=== PATIENT | female | born 1975 | race African-American/Black ===

== ENCOUNTER 2016-04-20 07:13 | Emergency (ER) | payer SELFPAY ==
[~2016-04-20 07:13] MED LIST: AMLO10TA2 PO; LISI20TA PO
[2016-04-20 07:15] VITALS: BP 202/115; PULSE 69; RESP 15; TEMP 98; O2SAT 100
[2016-04-20 07:24] VITALS: BP 156/98; PULSE 56; RESP 16; O2SAT 96
[2016-04-20 07:28] VITALS: RESP 16; O2SAT 98
[2016-04-20] MEDS ORDERED: SODIUM CHLORIDE 0.9% FLUSH 5 ML FLUSH IVF PRN (07:30)
[2016-04-20] MEDS ORDERED: KETOROLAC TROMETHAMINE 30 MG/ML (IVP) VIAL IV PUSH ONE (07:30)
[2016-04-20] MEDS ORDERED: ONDANSETRON HCL 4 MG/2 ML VIAL IVP ONE (07:30)
--- NOTE | 2016-04-20 07:30 | PD ---
HPI Chief Complaint: GI Complaint Time Seen by Provider: 07:22 Travel History International Travel<30 days: No Contact w/Intl Traveler<30days: No Traveled to known affect area: No History of Present Illness HPI 41-year-old female here with complaint of abdominal pain. For the last 3 days she has had diffuse crampy abdominal discomfort with occasional sharp twinges in the right side of the abdomen. Associated nausea, vomiting. Bowel movements have been regular. She notes urinary frequency, small volume but no dysuria or hematuria. Patient has had previous hysterectomy as well as colon resection, ileostomy and ileostomy takedown, right oophorectomy all related to history of endometriosis. She denies any history of bowel obstructions. No recent travel, sick contacts, fevers or chills. PFSH Past Medical History Heart Rhythm Problems: No Cardiac Catheterization: No Cardiovascular Problems: Yes (HTN) High Cholesterol: No Congestive Heart Failure: No Diabetes: No Diminished Hearing: No Genitourinary: Yes (ENDOMETRIOSIS) Hypertension: Yes Tetanus Vaccination: Unknown Influenza Vaccination: No ?: Not Past Surgical History Abdominal Surgery: Yes (colon resection 2011) Coronary Artery Bypass Graft: No Hysterectomy: Yes Other Surgery: Yes Social History Alcohol Use: Yes (OCC) Tobacco Use: Yes (OCC) Substance Use: No Allergies-Medications (Allergen,Severity, Reaction): Coded Allergies: Codeine (Verified Allergy, Unknown, 04/20/16) Reported Meds & Prescriptions Reported Meds & Active Scripts Active Lisinopril-Hctz 20-12.5 Mg Tab 1 Tab PO DAILY Amlodipine (Amlodipine Besylate) 10 Mg Tab 10 Mg PO DAILY Review of Systems Except as stated in HPI: all other systems reviewed are Neg Physical Exam Narrative GENERAL: Well-appearing female in no acute distress SKIN: Warm and dry. HEAD: Normocephalic. EYES: No scleral icterus. No injection or drainage. ENT: Mucous membranes pink and moist. NECK: Supple CARDIOVASCULAR: Regular rate and rhythm. No murmur appreciated. RESPIRATORY: No accessory muscle use. Clear to auscultation. Breath sounds equal bilaterally. GASTROINTESTINAL: Abdomen soft, minimal right sided abdominal tenderness to palpation without rebound or guarding greatest in the right lower quadrant, nondistended. Multiple old surgical scars well-healed. MUSCULOSKELETAL: Normal gait NEUROLOGICAL: Awake and alert. Normal speech. PSYCHIATRIC: Appropriate mood and affect; insight and judgment normal. Data Data Last Documented VS Vital Signs Date Time Temp Pulse Resp B/P Pulse Ox O2 Delivery O2 Flow Rate FiO2 04/20/16 07:28 16 98 Room Air 04/20/16 07:15 98.0 69 202/115 Orders Complete Blood Count With Diff (04/20/16 07:27) Comprehensive Metabolic Panel (04/20/16 07:27) Lipase (04/20/16 07:27) Urinalysis - C+S If Indicated (04/20/16 07:27) Ct Abd/Pel W/O Iv Contrast (04/20/16 07:27) Iv Access Insert/Monitor (04/20/16 07:27) Ecg Monitoring (04/20/16 07:27) Oximetry (04/20/16 07:27) Ondansetron Inj (Zofran Inj) (04/20/16 07:30) Sodium Chloride 0.9% Flush (Ns Flush) (04/20/16 07:30) Fentanyl Inj (Fentanyl Inj) (04/20/16 07:30) Ketorolac Inj (Toradol Inj) (04/20/16 07:30) Labs Laboratory Tests Test 04/20/16 07:45 White Blood Count 4.4 TH/MM3 Red Blood Count 4.22 MIL/MM3 Hemoglobin 13.2 GM/DL Hematocrit 38.5 % Mean Corpuscular Volume 91.3 FL Mean Corpuscular Hemoglobin 31.2 PG Mean Corpuscular Hemoglobin 34.2 % Concent Red Cell Distribution Width 14.1 % Platelet Count 194 TH/MM3 Mean Platelet Volume 10.5 FL Neutrophils (%) (Auto) 34.5 % Lymphocytes (%) (Auto) 54.2 % Monocytes (%) (Auto) 6.0 % Eosinophils (%) (Auto) 4.5 % Basophils (%) (Auto) 0.8 % Neutrophils # (Auto) 1.5 TH/MM3 Lymphocytes # (Auto) 2.4 TH/MM3 Monocytes # (Auto) 0.3 TH/MM3 Eosinophils # (Auto) 0.2 TH/MM3 Basophils # (Auto) 0.0 TH/MM3 CBC Comment DIFF FINAL Differential Comment Urine Color YELLOW Urine Turbidity CLEAR Urine pH 6.0 Urine Specific [place] 1.020 Urine Protein NEG mg/dL Urine Glucose (UA) NEG mg/dL Urine Ketones NEG mg/dL Urine Occult Blood NEG Urine Nitrite NEG Urine Bilirubin NEG Urine Urobilinogen LESS THAN 2.0 MG/DL Urine Leukocyte Esterase SMALL Urine RBC 2 /hpf Urine WBC 2 /hpf Urine Squamous Epithelial 7 /hpf Cells Urine Transitional Epithelial <1 /hpf Cells Urine Bacteria FEW /hpf Urine Hyaline Casts 1 /lpf Urine Mucus FEW /lpf Microscopic Urinalysis Comment CULT NOT INDICATED Sodium Level 139 MEQ/L Potassium Level 3.9 MEQ/L Chloride Level 105 MEQ/L Carbon Dioxide Level 27.8 MEQ/L Anion Gap 6 MEQ/L Blood Urea Nitrogen 16 MG/DL Creatinine 1.07 MG/DL Estimat Glomerular Filtration 69 ML/MIN Rate Random Glucose 98 MG/DL Calcium Level 9.2 MG/DL Total Bilirubin 0.7 MG/DL Aspartate Amino Transf 18 U/L (AST/SGOT) Alanine Aminotransferase 50 U/L (ALT/SGPT) Alkaline Phosphatase 84 U/L Total Protein 7.8 GM/DL Albumin 4.0 GM/DL Lipase 96 U/L MDM Medical Decision Making Medical Screen Exam Complete: Yes Emergency Medical Condition: Yes Medical Record Reviewed: Yes Differential Diagnosis 41-year-old female with multiple previous abdominal surgeries here with complaint of 3 days of abdominal pain, greatest right sided, nausea vomiting and urinary frequency. Differential includes UTI, cystitis versus pyelonephritis, ureterolithiasis, appendicitis, hepatobiliary pathology, bowel obstruction, gastritis, GERD, pancreatitis. Narrative Course Patient placed on monitor, IV established and blood obtained. Given 4 mg Zofran , 100 g fentanyl, 30 mg Toradol. CBC, CMP, lipase, urinalysis obtained and unremarkable. CT abdomen and pelvis showed no acute abnormalities. Postsurgical changes. Stable pleural nodular thickening from January [address] thorax in one year. Diagnosis Primary Impression: Abdominal pain Qualified Code: R10.84 - Generalized abdominal pain Additional Impression: Nausea & vomiting Qualified Code: R11.2 - Non-intractable vomiting with nausea, unspecified vomiting type Referrals: Primary Care Physician as needed Additional Instructions: Nausea medications as needed. Follow-up with primary care provider as needed. Lab work and CT of the abdomen and pelvis today was negative. You do have stable thickening of the pleura, or lining of the lungs on the right. This has not changed since January 2016 when you have previous CT scan. Follow-up with primary care provider in one year to repeat CT of the chest to evaluate for stability. Med/Other Pt SpecificInfo: Prescription(s) given Scripts Promethazine (Phenergan)25 Mg Tab25 Mg PO Q6H PRN (Nausea/Vomiting) #10 TAB Ref 0 Prov:Jyotsna Sage MD 04/20/16 Disposition: 01 DISCHARGE HOME Condition: Stable Jyotsna Sage MD Apr 20, 2016 07:30
[2016-04-20 07:59] LABS: AUTOMATED NEUTROPHIL # 1.5 TH/MM3 (1.8-7.7); BASOPHIL % 0.8 % (0.0-2.0); EOSINOPHIL # 0.2 TH/MM3 (0-0.4); EOSINOPHIL % 4.5 % (0.0-4.0); HEMATOCRIT 38.5 % (35.0-46.0); HEMO FLAGS DIFF FINAL; LYMPH % 54.2 % (9.0-44.0); LYMPHOCYTE # 2.4 TH/MM3 (1.0-4.8); MEAN CELL VOLUME 91.3 FL (80.0-100.0); MEAN CORPUSCULAR HEMOGLOBIN 31.2 PG (27.0-34.0); MEAN CORPUSCULAR HGB CONC 34.2 % (32.0-36.0); NEUT % 34.5 % (16.0-70.0); PLATELET COUNT 194 TH/MM3 (150-450); RED BLOOD COUNT 4.22 MIL/MM3 (4.00-5.30); RED CELL DISTRIBUTION WIDTH 14.1 % (11.6-17.2); WHITE BLOOD COUNT 4.4 TH/MM3 (4.0-11.0)
[2016-04-20 08:01] LABS: BACTERIA, URINE FEW /hpf; BLOOD, URINE NEG (NEG); COMMENT (UR) CULT NOT INDICATED; CULTURE IF INDICATED CULT NOT INDICATED; GLUCOSE,URINE NEG (NEG); HYALINE CAST, URINE 1 /lpf (RARE); KETONE, URINE NEG (NEG); MUCUS URINE FEW /lpf (OCC); NITRITE,URINE NEG (NEG); SQUAMOUS EPITHELIAL CELL URINE 7 /hpf (0-5); TRANSITIONAL EPI CELLS, URINE <1 /hpf; URINE COLOR YELLOW (YELLW/STRAW)
[2016-04-20 08:22] LABS: ANION GAP 6 MEQ/L (5-15); AST (GOT) 18 U/L (15-37); BICARBONATE 27.8 MEQ/L (21.0-32.0); BLOOD UREA NITROGEN 16 MG/DL (7-18); CHLORIDE 105 MEQ/L (98-107); GLOMERULAR FILTRATION RATE 69 ML/MIN (>89); POTASSIUM 3.9 MEQ/L (3.5-5.1); SODIUM (NA) 139 MEQ/L (136-145)
--- NOTE | 2016-04-20 08:23 | RADRPT ---
EXAM DATE/TIME: 04/20/2016 07:57 [facility] COMPARISON: CT THORAX W CONTRAST, February 20, 2016, 14:07. INDICATIONS : Right flank pain, nausea and vomiting. ORAL CONTRAST: No oral contrast ingested. RADIATION DOSE: 10.25 CTDIvol (mGy) MEDICAL HISTORY : Hypertension. SURGICAL HISTORY : Hysterectomy. Colon resection. Endometriosis. ENCOUNTER: Initial ACUITY: 1 day PAIN SCALE: 5/10 LOCATION: Right flank TECHNIQUE: Volumetric scanning of the abdomen and pelvis was performed. Using automated exposure control and ad justment of the mA and/or kV according to patient size, radiation dose was kept as low as reasonably achievable to obtain optimal diagnostic quality images. FINDINGS: LOWER LUNGS: The visualized lung bases are stable from the prior study. Nodular pleural thickening is seen involvi ng the inferior right hemithorax. This is shown no change. Some of the pleural thickening is partiall y calcified. LIVER: Homogeneous density without lesion. There is no dilation of the biliary tree. No calcified gallston es. SPLEEN: Normal size without lesion. PANCREAS: Within normal limits. KIDNEYS: Normal in size and shape. There is no mass, stone, or hydronephrosis. ADRENAL GLANDS: Within normal limits. VASCULAR: There is no aortic aneurysm. BOWEL/MESENTERY: Multiple surgical clips associated with the rectosigmoid colon and suspected small bowel loop within the right lower quadrant. The appendix is seen and normal by CT criteria. It is retrocecal coursing c ephalad towards the liver tip. The stomach, small bowel, and colon demonstrate no acute abnormality. There is no free intraperitoneal air or fluid. ABDOMINAL WALL: Within normal limits. RETROPERITONEUM: There is no lymphadenopathy. BLADDER: No wall thickening or mass. REPRODUCTIVE: Within normal limits. INGUINAL: There is no lymphadenopathy or hernia. MUSCULOSKELETAL: Within normal limits for patient age. CONCLUSION: 1. No acute abnormality to explain the patient's pain. In particular, no renal or ureteral stones. 2. Postsurgical changes involving loops of bowel within the pelvis. 3. Areas of pleural thickening some of which are nodular in appearance within the right hemithorax. T his is stable in appearance from the prior study from January 2016. A repeat CT of the thorax is sug gested in one year to document continued stability. Nick Monroy Jr., MD on April 20, 2016 at 8:16 Board Certified Radiologist. This report was verified electronically.
[2016-04-20 08:25] LABS: ALKALINE PHOSPHATASE 84 U/L (45-117); ALT (GPT) 50 U/L (10-53); TOTAL BILIRUBIN ADULT 0.7 MG/DL (0.2-1.0)
[2016-04-20] MEDS ORDERED: PROM25TA5 PO (08:38)
[2016-04-20 09:00] VITALS: BP 136/89; PULSE 56; RESP 16; O2SAT 95
[2016-04-20 09:16] VITALS: RESP 16
== END 2016-04-20 09:17 | disposition home or self-care (01) ==
LOC: NEPE 07:13
DX: R10.84 Generalized abdominal pain (principal); R11.2 Nausea with vomiting, unspecified; R35.0 Frequency of micturition; I10 Essential (primary) hypertension; Z72.0 Tobacco use; Z98.890 Other specified postprocedural states; Z87.42 Personal history of other diseases of the female genital tract
CPT/HCPCS: 74176; 80053; 81001; 83690; 85025; 96374; 96375; 99284; J1885; J2405; J3010

== ENCOUNTER 2016-06-22 17:29 | Emergency (ER) | payer SELFPAY ==
[~2016-06-22 17:29] MED LIST changes: +PROM25TA5 PO
[2016-06-22 17:31] VITALS: BP 145/86; PULSE 66; RESP 20; TEMP 97.8; O2SAT 97
== END 2016-06-22 18:15 | disposition left against medical advice (07) ==
LOC: NED 17:29
DX: M79.675 Pain in left toe(s) (principal)
CPT/HCPCS: 99281

== ENCOUNTER 2016-06-23 22:01 | Emergency (ER) | payer SELFPAY ==
[~2016-06-23] VITALS: Ht 175.3 cm; Wt 88.0 kg
[2016-06-23 22:09] VITALS: BP 170/110; PULSE 115; RESP 20; TEMP 98; O2SAT 98
[2016-06-23 22:11] VITALS: BP 177/89; PULSE 114; RESP 20; TEMP 98; O2SAT 98
[2016-06-23 22:44] VITALS: RESP 20
[2016-06-23] MEDS ORDERED: LORazepam 2 MG/ML VIAL IV PUSH ONE (22:45)
--- NOTE | 2016-06-23 22:56 | RADRPT ---
EXAM DATE/TIME: 06/23/2016 22:43 [facility] COMPARISON: CHEST SINGLE AP, February 20, 2016, 12:12. INDICATIONS : Chest pain that started today. MEDICAL HISTORY : Hypertension. SURGICAL HISTORY : Hysterectomy. ENCOUNTER: Initial ACUITY: 1 day PAIN SCORE: 10/10 LOCATION: Bilateral chest FINDINGS: A single view of the chest demonstrates the lungs to be symmetrically aerated without evidence of mas s, infiltrate or effusion. The cardiomediastinal contours are unremarkable. Osseous structures are intact. There is a lesser degree of inspiration when compared to prior chest x-ray January 2016. CONCLUSION: The lungs are clear. Nick Phelps MD on June 23, 2016 at 22:54 Board Certified Radiologist. This report was verified electronically.
[2016-06-23] MEDS ORDERED: SODIUM CHLOR 0.9% 1000 ML INJ 1,000 ML IV ONE (23:15)
[2016-06-23] MEDS ORDERED: SODIUM CHLORIDE 0.9% FLUSH 10 ML FLUSH IVF PRN (23:15)
[2016-06-23] MEDS ORDERED: HYDROmorphone HCL PF 1 MG/ML VIAL IV PUSH ONE (23:15)
[2016-06-23] MEDS ORDERED: ONDANSETRON HCL 4 MG/2 ML VIAL IV PUSH ONE (23:15)
[2016-06-23 23:41] LABS: AUTOMATED NEUTROPHIL # 2.4 TH/MM3 (1.8-7.7); BASOPHIL % 0.7 % (0.0-2.0); EOSINOPHIL # 0.2 TH/MM3 (0-0.4); HEMATOCRIT 38.9 % (35.0-46.0); HEMO FLAGS DIFF FINAL; LYMPH % 51.6 % (9.0-44.0); LYMPHOCYTE # 3.1 TH/MM3 (1.0-4.8); MEAN CELL VOLUME 91.6 FL (80.0-100.0); MEAN CORPUSCULAR HGB CONC 32.8 % (32.0-36.0); MONO % 5.9 % (0.0-8.0); NEUT % 38.8 % (16.0-70.0); PLATELET COUNT 183 TH/MM3 (150-450); RED BLOOD COUNT 4.25 MIL/MM3 (4.00-5.30); RED CELL DISTRIBUTION WIDTH 13.9 % (11.6-17.2); WHITE BLOOD COUNT 6.1 TH/MM3 (4.0-11.0)
[2016-06-23 23:49] LABS: APTT (PATIENT) 23.7 SEC (24.3-30.1); INTERNATIONAL NORMALIZED RATIO 0.9 RATIO; PROTHROMBIN TIME - PATIENT 10.3 SEC (9.8-11.6)
--- NOTE | 2016-06-23 23:49 | PD ---
HPI Chief Complaint: Chest Pain Time Seen by Provider: 22:09 Travel History International Travel<30 days: No Contact w/Intl Traveler<30days: No Traveled to known affect area: No History of Present Illness HPI 41-year-old female arrives to the ER with chest pain. It started suddenly right after she started drinking beer. She states it radiates to her neck and arm. She has a history of panic attacks and states it feels the same. The onset was sudden. She states the pain is severe. EMS notes the patient had a respiratory rate of 40 and a heart rate of 130 en route. Patient reports a pleuritic component. She reports pain with movement as well as pain in the left back. There is a tight painful quality. The patient has a history of endometriosis with ileostomy and chronic pain. She has a history of anxiety as well. She smokes tobacco. She denies drug abuse. [facility] Past Medical History Anxiety: Yes Heart Rhythm Problems: No Cardiac Catheterization: No Cardiovascular Problems: Yes (HTN) High Cholesterol: No Congestive Heart Failure: No Diabetes: No Diminished Hearing: No Gout: Yes Genitourinary: Yes (ENDOMETRIOSIS) Hypertension: Yes Immunizations Current: Yes Tetanus Vaccination: Unknown Influenza Vaccination: No ?: Not Past Surgical History Abdominal Surgery: Yes (colon resection 2011) Coronary Artery Bypass Graft: No Hysterectomy: Yes Other Surgery: Yes Social History Alcohol Use: Yes (OCC) Tobacco Use: Yes (OCC) Substance Use: No Allergies-Medications (Allergen,Severity, Reaction): Coded Allergies: Codeine (Verified Allergy, Unknown, 06/23/16) Reported Meds & Prescriptions Reported Meds & Active Scripts Active Ibuprofen 600 Mg Tab 600 Mg PO Q8HR PRN Amlodipine (Amlodipine Besylate) 10 Mg Tab 10 Mg PO DAILY Review of Systems Except as stated in HPI: all other systems reviewed are Neg General / Constitutional: No: Fever Physical Exam Narrative No evidence DVT either leg. GENERAL: 41-year-old female pleasant well- nourished well-developed mildly anxious SKIN: Focused skin assessment warm/dry. HEAD: Atraumatic. Normocephalic. EYES: Pupils equal and round. No scleral icterus. No injection or drainage. ENT: No nasal bleeding or discharge. Mucous membranes pink and moist. NECK: Trachea midline. No JVD. CARDIOVASCULAR: Tachycardia. Regular rhythm. RESPIRATORY: No accessory muscle use. Clear to auscultation. Breath sounds equal bilaterally. GASTROINTESTINAL: Abdomen soft, non-tender, nondistended. Hepatic and splenic margins not palpable. MUSCULOSKELETAL: Minimal tenderness to palpation along the parathoracic musculature. No focal spinal tenderness. No evidence DVT on either leg. NEUROLOGICAL: Awake and alert. No obvious cranial nerve deficits. Motor grossly within normal limits. Normal speech. PSYCHIATRIC: Appropriate mood and affect; insight and judgment normal. Data Data Last Documented VS Vital Signs Date Time Temp Pulse Resp B/P Pulse Ox O2 Delivery O2 Flow Rate FiO2 06/24/16 03:29 98.0 98 20 168/70 98 Room Air Vital signs reviewed Orders Electrocardiogram (06/23/16 22:41) Chest, Single Ap (06/23/16 22:41) Ecg Monitoring (06/23/16 22:41) Iv Access Insert/Monitor (06/23/16 22:41) Oximetry (06/23/16 22:41) Lorazepam Inj (Ativan Inj) (06/23/16 22:45) Basic Metabolic Panel (Bmp) (06/23/16 23:14) Ckmb (Isoenzyme) Profile (06/23/16 23:14) Complete Blood Count With Diff (06/23/16 23:14) Magnesium (Mg) (06/23/16 23:14) Prothrombin Time / Inr (Pt) (06/23/16 23:14) Act Partial Throm Time (Ptt) (06/23/16 23:14) Troponin I (06/23/16 23:14) Oxygen Administration (06/23/16 23:14) Sodium Chloride 0.9% Flush (Ns Flush) (06/23/16 23:15) Hydromorphone Pf Inj (Dilaudid Pf Inj) (06/23/16 23:15) Ondansetron Inj (Zofran Inj) (06/23/16 23:15) Sodium Chlor 0.9% 1000 Ml Inj (Ns 1000 M (06/23/16 23:15) Nitroglycerin Sl (Nitrostat Sl) (06/24/16 00:15) Hydromorphone Pf Inj (Dilaudid Pf Inj) (06/24/16 00:15) Sodium Chlor 0.9% 1000 Ml Inj (Ns 1000 M (06/24/16 00:15) Ct Pulmonary Angiogram (06/24/16 00:06) CKMB (06/23/16 23:20) CKMB% (06/23/16 23:20) Diphenhydramine Inj (Benadryl Inj) (06/24/16 01:00) Iohexol 350 Inj (Omnipaque 350 Inj) (06/24/16 01:16) Labs Laboratory Tests Test 06/23/16 23:20 Prothrombin Time 10.3 SEC Prothromb Time International 0.9 RATIO Ratio Activated Partial 23.7 SEC Thromboplast Time White Blood Count 6.1 TH/MM3 Red Blood Count 4.25 MIL/MM3 Hemoglobin 12.8 GM/DL Hematocrit 38.9 % Mean Corpuscular Volume 91.6 FL Mean Corpuscular Hemoglobin 30.0 PG Mean Corpuscular Hemoglobin 32.8 % Concent Red Cell Distribution Width 13.9 % Platelet Count 183 TH/MM3 Mean Platelet Volume 11.3 FL Neutrophils (%) (Auto) 38.8 % Lymphocytes (%) (Auto) 51.6 % Monocytes (%) (Auto) 5.9 % Eosinophils (%) (Auto) 3.0 % Basophils (%) (Auto) 0.7 % Neutrophils # (Auto) 2.4 TH/MM3 Lymphocytes # (Auto) 3.1 TH/MM3 Monocytes # (Auto) 0.4 TH/MM3 Eosinophils # (Auto) 0.2 TH/MM3 Basophils # (Auto) 0.0 TH/MM3 CBC Comment DIFF FINAL Differential Comment Sodium Level 143 MEQ/L Potassium Level 4.0 MEQ/L Chloride Level 109 MEQ/L Carbon Dioxide Level 24.6 MEQ/L Anion Gap 9 MEQ/L Blood Urea Nitrogen 21 MG/DL Creatinine 1.31 MG/DL Estimat Glomerular Filtration 55 ML/MIN Rate Random Glucose 92 MG/DL Calcium Level 9.1 MG/DL Magnesium Level 2.1 MG/DL Total Creatine Kinase 343 U/L Creatine Kinase MB 2.0 NG/ML Creatine Kinase MB % 0.6 % Troponin I LESS THAN 0.02 NG/ML MDM Medical Decision Making Medical Screen Exam Complete: Yes Emergency Medical Condition: Yes Medical Record Reviewed: Yes Differential Diagnosis NSTEMI, unstable angina, coronary vasospasm, PE, PTX, aortic dissection, pericarditis, myocarditis, endocarditis, PNA, esophageal disease, aneurysm, musculoskeletal etiologies, anxiety, cocaine/sympathomimetic abuse Narrative Course CBC & BMP Diagram 06/23/16 23:20 Troponin undetectable Creatinine kinase 343 INR 0.9 EKG shows sinus tachycardia with a rate of 114 Last 24 hours Impressions Chest X-Ray 06/23/16 2241 Signed Impressions: Service Date/Time: Saturday, June 23, 2016 22:43 - CONCLUSION: The lungs are clear. Nick Phelps MD Chest CT: No visualized PE and major vessels due to poor technique Nodular hyperdense 12 mm structure at the apex and oriented lito-thorax pleural thickening versus small aneurysm noted. Stability since about 6 months prior noted. The patient was advised of these findings and verbalized agreement to follow up with primary care provider within 3 months. The patient is resting comfortably and feels better, is alert and in no distress. The patients results and examination findings were discussed. The repeat examination is unremarkable and benign. The history, exam, diagnostic testing, and current condition do not suggest any significant pathology to warrant further testing, continued ED treatment, admission, or surgical evaluation at this point. The vital signs have been stable. The patient does not have uncontrollable pain, intractable vomiting, or other significant symptoms. The patient's condition is stable and appropriate for discharge. The patient will pursue further outpatient evaluation with a primary care physician or other designated or consulting physician as indicated in the discharge instructions. The patient expressed understanding and was agreeable with this plan. Diagnosis Primary Impression: Atypical chest pain Additional Impressions: Anxiety Abnormal CT scan of lung Referrals: Sheng Mo MD, Kirsten MD Rees,Ulises Fowler MD Additional Instructions: You have a choice when it comes to health care, and we are glad that you chose [facility]. Hopefully, we have met your expectations on today's visit. You are welcome to return to [facility] at any time, as we are committed to meeting the health care needs of our community. Scripts Ibuprofen 600 Mg [id number] Mg PO Q8HR PRN (PAIN SCALE 6 TO 10) #15 TAB Ref 0 Prov:Nestor Hines MD 06/24/16 Disposition: 01 DISCHARGE HOME Condition: Stable Nestor Hines MD Jun 23, 2016 23:49
[2016-06-24] MEDS ORDERED: SODIUM CHLOR 0.9% 1000 ML INJ 1,000 ML IV ONE (00:15)
[2016-06-24] MEDS ORDERED: HYDROmorphone HCL PF 1 MG/ML VIAL IV PUSH ONE (00:15)
[2016-06-24] MEDS: NITROGLYCERIN 0.4 MG SL 25 TABS/BTL SL SCH ×2 (00:18→00:35)
[2016-06-24 00:37] LABS: ANION GAP 9 MEQ/L (5-15); BICARBONATE 24.6 MEQ/L (21.0-32.0); BLOOD UREA NITROGEN 21 MG/DL (7-18); CHLORIDE 109 MEQ/L (98-107); CREATINE KINASE 343 U/L (26-192); GLOMERULAR FILTRATION RATE 55 ML/MIN (>89); MAGNESIUM 2.1 MG/DL (1.5-2.5); SODIUM (NA) 143 MEQ/L (136-145)
[2016-06-24] MEDS ORDERED: diphenhydrAMINE HCL 50 MG/ML VIAL IV PUSH ONE (01:00)
[2016-06-24] MEDS ORDERED: IOHEXOL 350 MG/ML 10 ML VIAL (for RAD DIAG) IV ONE (01:16)
--- NOTE | 2016-06-24 01:40 | RADRPT ---
EXAM DATE/TIME: 06/24/2016 01:13 [facility] COMPARISON: CT THORAX W CONTRAST, February 20, 2016, 14:07. CHEST SINGLE AP, June 23, 2016, 22:43. INDICATIONS : Left sided chest pain and shortness of breath; rule out pulmonary embolus. IV CONTRAST: 75 cc Omnipaque 350 (iohexol) IV RADIATION DOSE: 23.21 CTDIvol (mGy) MEDICAL HISTORY : Hypertension. SURGICAL HISTORY : Hysterectomy. Colon resection. ENCOUNTER: Initial ACUITY: 1 day PAIN SCALE: 8/10 LOCATION: Left chest TECHNIQUE: Volumetric scanning of the chest was performed using a pulmonary embolism protocol MIP images were re constructed. Using automated exposure control and adjustment of the mA and/or kV according to patien t size, radiation dose was kept as low as reasonably achievable to obtain optimal diagnostic quality images. FINDINGS: PULMONARY ARTERIES: No filling defects are seen in the pulmonary arteries through the lobar vessels. There is poor opacif ication of the pulmonary arterial tree likely secondary to contrast bolus timing. LUNGS: There is no consolidation or pneumothorax . PLEURAE: There is no no pleural effusion. There is stable hyperdense pleural thickening in the posterior right hemithorax. MEDIASTINUM: Heart and great vessels demonstrate no acute finding. No lymphadenopathy is seen. There is a nodular hyperdense structure measuring 12 mm at the apex of the right hemithorax. Mild coronary artery calcif ication is present. MUSCULOSKELETAL: No acute osseous abnormality is visualized. MISCELLANEOUS: The visualized upper abdominal organs demonstrate no acute abnormality. CONCLUSION: 1. Evaluation for PE is significantly limited due to poor opacification of the pulmonary arteries due to contrast bolus timing. However, the evaluated vessels demonstrate no PE. 2. Nodular hyperdense 12 mm structure at the apex the right hemithorax. Its of uncertain etiology but a potential consideration is a small aneurysm or pleural thickening. This finding is stable compared to the January 2016 exam. There is also a stable nodular hyperdense pleural thickening in the right hemithorax suggesting a both of these findings may be related. Alexander Wellington MD on June 24, 2016 at 1:33 Board Certified Radiologist. This report was verified electronically.
[2016-06-24] MEDS ORDERED: IBUP-232 PO (03:13)
[2016-06-24 03:29] VITALS: BP 168/70; PULSE 98; RESP 20; TEMP 98; O2SAT 98
--- NOTE | 2016-06-24 21:04 | EKG ---
Date Performed: 06/23/2016 Time Performed: 22:13:46 PTAGE: 41 years EKG: SINUS TACHYCARDIA POSSIBLE LEFT ATRIAL ENLARGEMENT INCOMPLETE RIGHT BUNDLE BRANCH BLOCK NON SPECIFIC T-WAVE ABNORMALITY ABNORMAL RHYTHM ECG PREVIOUS TRACING : 02/20/2016 18.47 DOCTOR: Carlos Enrique Atkinson Interpretating Date/Time 06/24/2016 21:02:58
== END 2016-06-24 04:51 | disposition home or self-care (01) ==
LOC: NEPC 22:01
DX: R07.89 Other chest pain (principal); F41.9 Anxiety disorder, unspecified; R91.8 Other nonspecific abnormal finding of lung field; M54.2 Cervicalgia; M79.603 Pain in arm, unspecified; M54.6 Pain in thoracic spine; R94.31 Abnormal electrocardiogram [ECG] [EKG]; I10 Essential (primary) hypertension; Z72.0 Tobacco use; Z86.59 Personal history of other mental and behavioral disorders; Z87.42 Personal history of other diseases of the female genital tract; Z86.79 Personal history of other diseases of the circulatory system; Z87.39 Personal history of other diseases of the musculoskeletal system and connective tissue
CPT/HCPCS: 71010; 71275; 80048; 82550; 82552; 83735; 84484; 85025; 85610; 85730; 93005; 96361; 96374; 96375; 99285; J1170; J1200; J2060; J2405; J7030; Q9967

== ENCOUNTER 2016-07-25 08:07 | Emergency (ER) | payer OTHER ==
[~2016-07-25] VITALS: Ht 170.2 cm; Wt 99.0 kg
[~2016-07-25 08:07] MED LIST changes: +IBUP-232 PO; -LISI20TA PO; -PROM25TA5 PO
[2016-07-25 08:09] VITALS: BP 181/90; PULSE 81; RESP 16; TEMP 97.9; O2SAT 99
[2016-07-25] MEDS ORDERED: KETOROLAC TROMETHAMINE 60 MG/2 ML (IM) VIAL IM ONE (08:45)
[2016-07-25] MEDS ORDERED: ORPHENADRINE INJ 60 MG/2 ML AMP IM ONE (08:45)
--- NOTE | 2016-07-25 08:49 | PD ---
HPI Chief Complaint: Back/ Neck Pain or Injury Time Seen by Provider: 08:38 Travel History International Travel<30 days: No Contact w/Intl Traveler<30days: No Traveled to known affect area: No History of Present Illness HPI 41-year-old female complains of low back pain. Patient states that she was carrying an object and twisted her back and heard a pop and started having persistent back pain since then. Patient states the pain is sharp pain localized to low back area. Patient denies any pain radiation. Patient denies any dysuria or frequency. Patient status post hysterectomy. Patient denies any history of previous back pain. Patient denies any focal weakness or numbness of extremity. Patient has history of recurrent left great toe pain for the past few months. On a scale of 1-10 the pain is a 10. PFSH Past Medical History Anxiety: Yes Heart Rhythm Problems: No Cardiac Catheterization: No Cardiovascular Problems: Yes (HTN) High Cholesterol: No Congestive Heart Failure: No Diabetes: No Diminished Hearing: No Gout: Yes Genitourinary: Yes (ENDOMETRIOSIS) Hypertension: Yes Immunizations Current: Yes ?: Not Past Surgical History Abdominal Surgery: Yes (colon resection 2011) Coronary Artery Bypass Graft: No Hysterectomy: Yes Other Surgery: Yes Social History Alcohol Use: Yes (OCC) Tobacco Use: Yes (OCC) Substance Use: No Allergies-Medications (Allergen,Severity, Reaction): Coded Allergies: Codeine (Verified Allergy, Unknown, 07/25/16) Reported Meds & Prescriptions Reported Meds & Active Scripts Active Amlodipine (Amlodipine Besylate) 10 Mg Tab 10 Mg PO DAILY Review of Systems General / Constitutional: No: Fever Eyes: No: Visual changes HENT: No: Headaches Cardiovascular: No: Chest Pain or Discomfort Respiratory: No: Shortness of Breath Gastrointestinal: No: Abdominal Pain Genitourinary: No: Dysuria Musculoskeletal: No: Pain Skin: No Rash Neurologic: No: Weakness Psychiatric: No: Depression Endocrine: No: Polydipsia Hematologic/Lymphatic: No: Easy Bruising Physical Exam Narrative GENERAL: Well-nourished, well-developed patient. SKIN: Focused skin assessment warm/dry. HEAD: Normocephalic. EYES: No scleral icterus. No injection or drainage. NECK: Supple, trachea midline. No JVD or lymphadenopathy. CARDIOVASCULAR: Regular rate and rhythm without murmurs, gallops, or rubs. RESPIRATORY: Breath sounds equal bilaterally. No accessory muscle use. GASTROINTESTINAL: Abdomen soft, non-tender, nondistended. MUSCULOSKELETAL: No cyanosis, or edema. Patient has taken and deformity of left great toe toenail. Mild tenderness on palpation of the distal phalangeal left great toe. No redness no heat noted discharge noted. BACK: Patient has moderate tenderness on palpation lumbar area, without obvious deformity. No CVA tenderness. Negative straight leg raising. neurologic exam normal. Data Data Last Documented VS Vital Signs Date Time Temp Pulse Resp B/P Pulse Ox O2 Delivery O2 Flow Rate FiO2 07/25/16 11:47 80 16 171/88 99 07/25/16 08:09 97.9 Orders Ketorolac Inj (Toradol Inj) (07/25/16 08:45) Orphenadrine Inj (Norflex Inj) (07/25/16 08:45) Spine, Lumbar - Ltd (Ap & Lat) (07/25/16 08:43) MDM Medical Decision Making Medical Screen Exam Complete: Yes Emergency Medical Condition: Yes Interpretation(s) Last Impressions Lumbar Spine X-Ray 07/25/16 0843 Signed Impressions: Service Date/Time: Monday, July 25, 2016 09:17 - CONCLUSION: Unremarkable limited examination of the lumbar spine. Alexander Ash MD Differential Diagnosis Differential diagnosis including lumbar strain, fracture, HNP. Narrative Course 41-year-old female with low back pain. Patient has recurrent left great toe pain with deformity and thickened left great toe toenail. Toradol 60 mg IM. Norflex 60 mg IM. Diagnosis Primary Impression: Lumbar strain Qualified Code: S39.012A - Lumbar strain, initial encounter Patient Instructions: General Instructions Additional Instructions: Take medication as needed for pain. Moist heat to the back. Follow with an orthopedist. Return if worse. Med/Other Pt SpecificInfo: Prescription(s) given Scripts Tramadol (Ultram)50 Mg Tab50 Mg PO Q6H PRN (PAIN) #20 TAB Prov:Tyler Ramon MD 07/25/16 Methocarbamol (Robaxin)750 Mg Ndg127 Mg PO QID #40 TAB Prov:Tyler Ramon MD 07/25/16 Meloxicam (Mobic)15 Mg Tab15 Mg PO DAILY #20 TAB Prov:Tyler Ramon MD 07/25/16 Disposition: 01 DISCHARGE HOME Condition: Stable Tyler Ramon MD July 25, 2016 08:49
--- NOTE | 2016-07-25 11:13 | RADRPT ---
EXAM DATE/TIME: 07/25/2016 09:17 [facility] COMPARISON: No previous studies available for comparison. INDICATIONS : Lower left side back pains since Saturday. MEDICAL HISTORY : None. SURGICAL HISTORY : None. ENCOUNTER: Initial ACUITY: 4 - 6 days PAIN SCORE: 10/10 LOCATION: Left lumbar spine. FINDINGS: Two view examination was performed. There are five non-rib bearing vertebral bodies. The vertebral bodies are in normal alignment without evidence of subluxation or scoliosis. The disc spaces are laurie ntained. The pedicles are intact. Bony mineralization is normal. No fracture is identified. CONCLUSION: Unremarkable limited examination of the lumbar spine. Alexander Ash MD on July 25, 2016 at 11:10 Board Certified Radiologist. This report was verified electronically.
[2016-07-25 11:47] VITALS: BP 171/88; PULSE 80; RESP 16; O2SAT 99
[2016-07-25] MEDS ORDERED: ULTR50TA5 PO (11:49)
[2016-07-25] MEDS ORDERED: ROBA750T PO (11:49)
[2016-07-25] MEDS ORDERED: MOBI15TA PO (11:49)
== END 2016-07-25 12:04 | disposition home or self-care (01) ==
LOC: NEPC 08:07
DX: S39.012A Strain of muscle, fascia and tendon of lower back, initial encounter (principal); X50.1XXA Overexertion from prolonged static or awkward postures, initial encounter; Y93.89 Activity, other specified
CPT/HCPCS: 72100; 96372; 99283; J1885; J2360

== ENCOUNTER 2016-09-02 14:52 | Inpatient (IN) | payer BC, OTHER ==
[~2016-09-02] VITALS: Ht 170.2 cm; Wt 99.7 kg
[~2016-09-02 14:52] MED LIST changes: -IBUP-232 PO; +MOBI15TA PO; +ROBA750T PO; +ULTR50TA5 PO
[2016-09-02 14:55] VITALS: BP 207/108; PULSE 77; RESP 14; TEMP 97.8; O2SAT 98
--- NOTE | 2016-09-02 15:06 | PD ---
HPI Chief Complaint: Abdominal Pain Time Seen by Provider: 15:06 Travel History International Travel<30 days: No Contact w/Intl Traveler<30days: No Traveled to known affect area: No History of Present Illness HPI 41 YO F with PMH of HTN, endometriosis, bowel resection, hysterectomy presents to the ED for evaluation of 3 day history of abdominal pain, nausea, vomiting, blood in stool. Symptoms onset gradually. Patient denies fever or chills, chest pain, shortness of breath, palpitations, dysuria, back pain. She states that she's been out of amlodipine for "a few days." PFSH Past Medical History Anxiety: Yes Heart Rhythm Problems: No Cardiac Catheterization: No Cardiovascular Problems: Yes (HTN) High Cholesterol: No Congestive Heart Failure: No Diabetes: No Diminished Hearing: No Gout: Yes Genitourinary: Yes (ENDOMETRIOSIS) Hypertension: Yes Immunizations Current: Yes Past Surgical History Abdominal Surgery: Yes (colon resection 2011) Coronary Artery Bypass Graft: No Hysterectomy: Yes Other Surgery: Yes Social History Alcohol Use: Yes (OCC) Tobacco Use: Yes (OCC) Substance Use: No Allergies-Medications (Allergen,Severity, Reaction): Coded Allergies: Codeine (Verified Allergy, Unknown, 09/02/16) Reported Meds & Prescriptions Reported Meds & Active Scripts Active Amlodipine (Amlodipine Besylate) 10 Mg Tab 10 Mg PO DAILY Review of Systems Except as stated in HPI: all other systems reviewed are Neg Physical Exam Narrative GENERAL: Well-nourished, well-developed black female in [facility]. SKIN: Focused skin assessment warm/dry. Multiple well healed scars of the abdomen with no signs of infection. HEAD: Normocephalic. EYES: No scleral icterus. No injection or drainage. NECK: Supple, trachea midline. No JVD or lymphadenopathy. CARDIOVASCULAR: Regular rate and rhythm without murmurs, gallops, or rubs. RESPIRATORY: Breath sounds clear and equal bilaterally. No accessory muscle use. GASTROINTESTINAL: Abdomen soft, nondistended. ++TTP RLQ and epigastric region. MUSCULOSKELETAL: No cyanosis, or edema. BACK: Nontender without obvious deformity. No CVA tenderness. Data Data Last Documented VS Vital Signs Date Time Temp Pulse Resp B/P Pulse Ox O2 Delivery O2 Flow Rate FiO2 09/02/16 15:33 18 99 Room Air 09/02/16 14:55 97.8 77 207/108 Orders Complete Blood Count With Diff (09/02/16 15:17) Comprehensive Metabolic Panel (09/02/16 15:17) Lipase (09/02/16 15:17) Lactic Acid (09/02/16 15:17) Prothrombin Time / Inr (Pt) (09/02/16 15:17) Act Partial Throm Time (Ptt) (09/02/16 15:17) Urinalysis - C+S If Indicated (09/02/16 15:17) Ct Abd/Pel W Iv Contrast(Rout) (09/02/16 15:17) Iv Access Insert/Monitor (09/02/16 15:17) Ecg Monitoring (09/02/16 15:17) Oximetry (09/02/16 15:17) NPO (09/02/16 15:17) Ondansetron Inj (Zofran Inj) (09/02/16 15:30) Sodium Chlor 0.9% 1000 Ml Inj (Ns 1000 M (09/02/16 15:17) Sodium Chloride 0.9% Flush (Ns Flush) (09/02/16 15:30) Morphine Inj (Morphine Inj) (09/02/16 15:45) Iohexol 350 Inj (Omnipaque 350 Inj) (09/02/16 16:11) Admit Order (Ed Use Only) (09/02/16 17:11) Labs Laboratory Tests Test 09/02/16 15:45 White Blood Count 5.0 TH/MM3 Red Blood Count 4.12 MIL/MM3 Hemoglobin 12.2 GM/DL Hematocrit 38.0 % Mean Corpuscular Volume 92.2 FL Mean Corpuscular Hemoglobin 29.5 PG Mean Corpuscular Hemoglobin 32.0 % Concent Red Cell Distribution Width 14.3 % Platelet Count 186 TH/MM3 Mean Platelet Volume 10.5 FL Neutrophils (%) (Auto) 40.2 % Lymphocytes (%) (Auto) 45.4 % Monocytes (%) (Auto) 7.3 % Eosinophils (%) (Auto) 6.5 % Basophils (%) (Auto) 0.6 % Neutrophils # (Auto) 2.0 TH/MM3 Lymphocytes # (Auto) 2.3 TH/MM3 Monocytes # (Auto) 0.4 TH/MM3 Eosinophils # (Auto) 0.3 TH/MM3 Basophils # (Auto) 0.0 TH/MM3 CBC Comment DIFF FINAL Differential Comment Prothrombin Time 10.5 SEC Prothromb Time International 1.0 RATIO Ratio Activated Partial 27.3 SEC Thromboplast Time Sodium Level 141 MEQ/L Potassium Level 3.5 MEQ/L Chloride Level 108 MEQ/L Carbon Dioxide Level 25.1 MEQ/L Anion Gap 8 MEQ/L Blood Urea Nitrogen 17 MG/DL Creatinine 1.27 MG/DL Estimat Glomerular Filtration 57 ML/MIN Rate Random Glucose 93 MG/DL Lactic Acid Level 0.9 mmol/L Calcium Level 9.0 MG/DL Total Bilirubin 0.5 MG/DL Aspartate Amino Transf 15 U/L (AST/SGOT) Alanine Aminotransferase 31 U/L (ALT/SGPT) Alkaline Phosphatase 92 U/L Total Protein 7.2 GM/DL Albumin 3.7 GM/DL Lipase 96 U/L [facility] Medical Decision Making Medical Screen Exam Complete: Yes Emergency Medical Condition: Yes Differential Diagnosis gastritis versus ileus versus bowel obstruction versus GI bleed versus anemia versus other Narrative Course 41 YO F with PMH of HTN, endometriosis, bowel resection, hysterectomy presents to the ED for evaluation of 3 day history of abdominal pain, N/V, blood in stool. Symptoms onset gradually. Patient denies fever, chills, CP, SOB, palpitations, dysuria, back pain. She states that she's been out of amlodipine for "a few days." BP 207/108 on presentation. ++ RLQ and epigastric TTP on exam. No CVA tenderness. She was administered 1L NS, 4mg morphine, 4mg Zofran IV. Nothing by mouth status ordered. CBC: WBC 5.0, hemoglobin 12.2. Coags: INR 1.0. CMP: Creatinine 1.27, BUN 17. Lactic acid 0.9. Lipase 96 UA: pending CT the abdomen and pelvis: Dilated loop of bowel the right lower quadrant adjacent to the anastomosis. SBO vs ileus. Rectal exam: guaiac positive BP remained elevated during the course of evaluation, administered 20mg hydralazine IV. I discussed the results of the workup with the patient. She is agreeable to admission. Call placed to the residents. They agree to accept the patient to the medicine service under Dr. Hung. Please see medicine notes for disposition. [facility] Point of Care Internal Pos. & Neg. Controls: Passed Fecal Specimen Occult Blood: Positive Erma Acevedo 11, 2017 15:06
[2016-09-02] MEDS ORDERED: SODIUM CHLOR 0.9% 1000 ML INJ 1,000 ML IV SCH ×2 (15:17→17:24)
[2016-09-02] MEDS ORDERED: SODIUM CHLORIDE 0.9% FLUSH 10 ML FLUSH IV FLUSH PRN (15:30)
[2016-09-02] MEDS ORDERED: ONDANSETRON HCL 4 MG/2 ML VIAL IVP ONE (15:30)
[2016-09-02 15:33] VITALS: RESP 18; O2SAT 99
[2016-09-02] MEDS ORDERED: MORPHINE SULFATE 4 MG/ML INJ IV PUSH ONE (15:45)
[2016-09-02 16:08] LABS: BASOPHIL % 0.6 % (0.0-2.0); EOSINOPHIL # 0.3 TH/MM3 (0-0.4); EOSINOPHIL % 6.5 % (0.0-4.0); HEMO FLAGS DIFF FINAL; LYMPH % 45.4 % (9.0-44.0); LYMPHOCYTE # 2.3 TH/MM3 (1.0-4.8); MEAN CELL VOLUME 92.2 FL (80.0-100.0); MEAN CORPUSCULAR HEMOGLOBIN 29.5 PG (27.0-34.0); MONO % 7.3 % (0.0-8.0); NEUT % 40.2 % (16.0-70.0); PLATELET COUNT 186 TH/MM3 (150-450); RED BLOOD COUNT 4.12 MIL/MM3 (4.00-5.30); RED CELL DISTRIBUTION WIDTH 14.3 % (11.6-17.2)
[2016-09-02] MEDS ORDERED: IOHEXOL 350 MG/ML 10 ML VIAL (for RAD DIAG) IV ONE (16:11)
[2016-09-02 16:16] LABS: APTT (PATIENT) 27.3 SEC (24.3-30.1); PROTHROMBIN TIME - PATIENT 10.5 SEC (9.8-11.6)
[2016-09-02 16:26] LABS: ANION GAP 8 MEQ/L (5-15); AST (GOT) 15 U/L (15-37); BICARBONATE 25.1 MEQ/L (21.0-32.0); BLOOD UREA NITROGEN 17 MG/DL (7-18); CHLORIDE 108 MEQ/L (98-107); GLOMERULAR FILTRATION RATE 57 ML/MIN (>89); POTASSIUM 3.5 MEQ/L (3.5-5.1); SODIUM (NA) 141 MEQ/L (136-145)
[2016-09-02 16:27] LABS: ALT (GPT) 31 U/L (10-53)
[2016-09-02 16:29] LABS: ALKALINE PHOSPHATASE 92 U/L (45-117); TOTAL BILIRUBIN ADULT 0.5 MG/DL (0.2-1.0)
--- NOTE | 2016-09-02 16:36 | RADRPT ---
EXAM DATE/TIME: 09/02/2016 16:07 [facility] COMPARISON: CT THORAX W CONTRAST, February 20, 2016, 14:07. CT ABDOMEN & PELVIS W/O CONTRAST, April 20, 2016, 7:57. INDICATIONS : Abdomen pain for one week. IV CONTRAST: 100 cc Omnipaque 350 (iohexol) IV ORAL CONTRAST: No oral contrast ingested. RADIATION DOSE: 15.58 CTDIvol (mGy) MEDICAL HISTORY : Cardiovascular disease. Hypertension. SURGICAL HISTORY : Hysterectomy. Colon resection. ENCOUNTER: Initial ACUITY: 1 day PAIN SCALE: 5/10 LOCATION: Bilateral abdomen. TECHNIQUE: Volumetric scanning of the abdomen and pelvis was performed. Using automated exposure control and ad justment of the mA and/or kV according to patient size, radiation dose was kept as low as reasonably achievable to obtain optimal diagnostic quality images. FINDINGS: LOWER LUNGS: The configuration of right lower lung is similar to prior exam with multiple subcentimeter nodules an teriorly and irregular shape pleural thickening in the costophrenic angle. No evidence of pleural ef fusion. LIVER: Homogeneous density without lesion. There is no dilation of the biliary tree. No calcified gallston es. SPLEEN: Normal size without lesion. PANCREAS: Within normal limits. KIDNEYS: Normal in size and shape. There is no mass, stone or hydronephrosis. ADRENAL GLANDS: Within normal limits. VASCULAR: There is no aortic aneurysm. BOWEL/MESENTERY: Anastomosis suture in the right lower quadrant and in the sigmoid region. There is a solitary dilate d loop of small bowel measuring up to 3.2 cm which appears adjacent to the anastomosis suture in the right lower quadrant. The proximal loops of small bowel are normal in dimension. The appendix is id entified in a retrocecal location and has a normal size. No evidence of free fluid. ABDOMINAL WALL: Within normal limits. RETROPERITONEUM: There is no lymphadenopathy. BLADDER: No wall thickening or mass. REPRODUCTIVE: Within normal limits. INGUINAL: There is no lymphadenopathy or hernia. MUSCULOSKELETAL: The osseous structures are intact. 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 CONCLUSION: 1. Solitary dilated loop of small bowel in the right lower quadrant adjacent to one of the anastomosi s suture lines. No proximally dilated small bowel. This could represent a partial small bowel obstr uction or localized ileus. 2. Nodules and pleural thickening in the right lower chest, stable from January 2016. Nick Phelps MD on September 02, 2016 at 16:25 Board Certified Radiologist. This report was verified electronically.
--- NOTE | 2016-09-02 17:21 | HHI.HP ---
HPI Service Family Medicine Primary Care Physician No Primary Care Physician Admission Diagnosis SBO versus ileus, GI bleeding, HTN Diagnoses: International Travel<30 Days: No Contact w/Intl Traveler<30days: No Known Affected Area: No History of Present Illness 41 year old female with a past medical history of hypertension, endometriosis with partial small bowel resection, hysterectomy presents to the ED with abdominal pain, nausea, vomiting, and blood in the stool. Symptoms started one week ago. Abdominal pain is diffuse and crampy. She had one episode of vomiting last night and one today. She has a bowel movement daily but they are harder and she is straining more to go. She noticed blood in her stool for the past 2 days. It was a small amount of blood streaking the stools and on the toilet paper. She notes it was reddish, not black or bright red per se. She's had small bowel obstruction three times since her small bowel resection in 2012. She has required an NG tube on two of these occasions. She's connor a colonoscopy and EGD in 2011 that were normal. Her BP in the ED is significantly elevated. She has been out of her amlodipine. She has a mild headache. No blurry vision. No neurological deficits. Review of Systems Constitutional: COMPLAINS OF: Change in appetite, DENIES: Diaphoretic episodes , Fatigue, Fever, Weight gain, Weight loss Endocrine: DENIES: Polydipsia, Polyuria, Polyphagia Eyes: DENIES: Blurred vision, Double Vision Ears, nose, mouth, throat: DENIES: Vertigo, Throat pain, Running Nose, Epistaxis Respiratory: DENIES: Cough, Wheezing, Sputum production, Shortness of breath Cardiovascular: DENIES: Chest pain, Dyspnea on Exertion, Lower Extremity Edema , Orthopnea Gastrointestinal: COMPLAINS OF: Abdominal pain, Bloody stools, Constipation, DENIES: Black stools, Diarrhea Genitourinary: DENIES: Urinary frequency, Urgency, Hematuria Musculoskeletal: DENIES: Joint pain, Back pain, Neck pain Integumentary: DENIES: Rash Hematologic/lymphatic: DENIES: Lymphadenopathy Immunologic/allergic: DENIES: Eczema Neurologic: COMPLAINS OF: Headache, DENIES: Localized weakness, Seizures, Speech Problems, Tremor, Poor Balance Psychiatric: DENIES: Confusion Past Family Social History Past Medical History HTN Endometriosis Past Surgical History Small bowel resection for endometriosis Hysterectomy Rectal polyps removed Ovarian cyst removed Reported Medications Reported Meds & Active Scripts Active Amlodipine (Amlodipine Besylate) 10 Mg Tab 10 Mg PO DAILY Allergies: Coded Allergies: Codeine (Verified Allergy, Unknown, 09/02/16) Active Ordered Medications Inpatient Medications Acetaminophen 650 mg 650 mg Q4H PRN PO Temp > 100.4; Start 09/02/16 at 17:30 Amlodipine Besylate (Norvasc) 10 mg DAILY PO ; Start 09/03/16 at 09:00 Clonidine 0.1 mg 0.1 mg Q6H PRN PO SEE LABEL COMMENTS; Start 09/02/16 at 17:30 Hydralazine HCl (Apresoline Inj) 20 mg ONCE ONCE IV PUSH Last administered on 09/02/16 18:09; Start 09/02/16 at 18:00; Stop 09/02/16 at 18:01; Status DC Hydromorphone HCl (Dilaudid Pf Inj) 1 mg Q4H PRN IV PAIN SCALE 6 TO 10; Start 09/02/16 at 17:30 Metoclopramide HCl (Reglan Inj) 10 mg Q6HR IVS Last administered on 09/02/16 18:09; Start 09/02/16 at 18:00 Morphine Sulfate (Morphine Inj) 4 mg ONCE ONCE IV PUSH Last administered on 15:56; Start 09/02/16 at 15:45; Stop 09/02/16 at 15:46; Status DC Naloxone HCl (Narcan Inj) 0.4 mg UNSCH PRN IV SEE LABEL COMMENTS; Start at 17:30 Ondansetron HCl (Zofran Inj) 4 mg Q6H PRN IV NAUSEA; Start 09/02/16 at 17:30 Pantoprazole Sodium (Protonix Inj) 40 mg BID IVP ; Start 09/02/16 at 21:00 Potassium Chloride/Dextrose/ Sod Cl (D5-1/2 NS + KCl 20 Meq Inj) 1,000 ml @ 140 mls/hr Q7H9M IV Last administered on 09/02/16 18:10; Start 09/02/16 at 17: 24 Sodium Chloride (NS 1000 ml Inj) 1,000 ml @ 140 mls/hr Q7H9M IV ; Start at 17:24 Sodium Chloride (NS Flush) 2 ml BID IV FLUSH ; Start 09/02/16 at 21:00 Family History Mom with hypertension Grandmother with colon cancer Cervical cancer Social History Smokes pack per week since she was a child Drinks 6-12 beers on the weekends. Drugs: none Lives with partner, three children Works at [employer] store Physical Exam Vital Signs Vital Signs Date Time Temp Pulse Resp B/P Pulse Ox O2 Delivery O2 Flow Rate FiO2 09/02/16 15:33 18 99 Room Air 09/02/16 14:55 97.8 77 14 207/108 98 Physical Exam GENERAL: Lying in bed, discomfort from abdominal pain, no distress SKIN: No rashes, ecchymoses or lesions. HEAD: Atraumatic. Normocephalic. No temporal or scalp tenderness. EYES: Pupils equal round and reactive. Extraocular motions intact. No scleral icterus. No injection or drainage. ENT: Nose without bleeding, purulent drainage or septal hematoma. Throat without erythema, tonsillar hypertrophy or exudate. Uvula midline. Airway patent. NECK: Trachea midline. No JVD or lymphadenopathy. Supple, nontender, no meningeal signs. CARDIOVASCULAR: Regular rate and rhythm without murmurs, gallops, or rubs. Normal pulses RESPIRATORY: Clear to auscultation. Breath sounds equal bilaterally. No wheezes , rales, or rhonchi. GASTROINTESTINAL: Abdomen soft, mild diffuse tenderness, no rebound or guarding , nondistended. Normal bowel sounds. Surgical scars on abdomen. MUSCULOSKELETAL: Extremities without clubbing, cyanosis, or edema. No joint tenderness, effusion, or edema noted. No calf tenderness. NEUROLOGICAL: Awake and alert. Cranial nerves II through XII intact. Motor and sensory grossly within normal limits. Five out of 5 muscle strength in all muscle groups. Normal speech. Laboratory Laboratory Tests Test 09/02/16 15:45 White Blood Count 5.0 Red Blood Count 4.12 Hemoglobin 12.2 Hematocrit 38.0 Mean Corpuscular Volume 92.2 Mean Corpuscular Hemoglobin 29.5 Mean Corpuscular Hemoglobin 32.0 Concent Red Cell Distribution Width 14.3 Platelet Count 186 Mean Platelet Volume 10.5 Neutrophils (%) (Auto) 40.2 Lymphocytes (%) (Auto) 45.4 Monocytes (%) (Auto) 7.3 Eosinophils (%) (Auto) 6.5 Basophils (%) (Auto) 0.6 Neutrophils # (Auto) 2.0 Lymphocytes # (Auto) 2.3 Monocytes # (Auto) 0.4 Eosinophils # (Auto) 0.3 Basophils # (Auto) 0.0 CBC Comment DIFF FINAL Differential Comment Prothrombin Time 10.5 Prothromb Time International 1.0 Ratio Activated Partial 27.3 Thromboplast Time Sodium Level 141 Potassium Level 3.5 Chloride Level 108 Carbon Dioxide Level 25.1 Anion Gap 8 Blood Urea Nitrogen 17 Creatinine 1.27 Estimat Glomerular Filtration 57 Rate Random Glucose 93 Lactic Acid Level 0.9 Calcium Level 9.0 Total Bilirubin 0.5 Aspartate Amino Transf 15 (AST/SGOT) Alanine Aminotransferase 31 (ALT/SGPT) Alkaline Phosphatase 92 Total Protein 7.2 Albumin 3.7 Lipase 96 Result Diagram: 09/02/16 1545 09/02/16 1545 Imaging Last 72 hours Impressions Abdomen/Pelvis CT 09/02/16 1517 Signed Impressions: Service Date/Time: Friday, September 02, 2016 16:07 - CONCLUSION: 1. Solitary dilated loop of small bowel in the right lower quadrant adjacent to one of the anastomosis suture lines. No proximally dilated small bowel. This could represent a partial small bowel obstruction or localized ileus. 2. Nodules and pleural thickening in the right lower chest, stable from January 2016. Nick Phelps MD Septic Shock Reassessment Heart: Regular rate and rhythm Lungs: Clear Skin: Warm Capillary Refill: <2 seconds Assessment and Plan Assessment and Plan 41 year old female with a history of small bowel resection for endometriosis presents with small bowel obstruction and blood in stools. Code Status FULL CODE Discussed Condition With Seen and discussed with Dr. Manzano Problem List: (1) Small bowel obstruction due to postoperative adhesions Status: Acute Plan: History of small bowel resection for endometriosis. Having nausea, vomiting, and abdominal pain. CT abdomen showing solitary dilated loop of small bowel in the right lower quadrant adjacent to one of the anastomosis suture lines. No proximally dilated small bowel. This could represent a partial small bowel obstruction or localized ileus. Lipase normal. Liver enzymes normal. Bilirubin normal. - NPO, advance diet as tolerated - IVF with D5 1/2 NS with 20 KCl at 140 mls/hr - Low threshold for NG tube - Low threshold for surgical consult - Reglan, sabine-colace for bowel regimen (2) Blood in stool Status: Acute Plan: Hemoccult positive stool - Consult GI - Trend H&H's - Pantoprazole IV 40 mg bid - NPO in case of endoscopy - Stool studies (3) Hypertensive urgency Status: Acute Plan: BP 207/108 on admission. - Hydralazine IV once now - Resume amlodipine 10 mg daily - Clonidine 0.1 mg PO PRN for BP >170/100 - Monitor for end-organ damage (4) Acute kidney injury Status: Acute Plan: BUN 17, creatinine 1.27, difficult to say what her baseline is. It was 1.31 on 06/23/16, and 1.07 on 04/20/16. - Dose medications renally - Avoid nephrotoxic agents (5) Nutrition, metabolism, and development symptoms Status: Acute Plan: IVF D5 1/2 NS at 140 mls/hr with 20 meQ KCl Monitor and replace electrolytes NPO for small bowel obstruction and GI bleed (6) Contraindication to anticoagulation therapy Status: Acute Plan: Hemoccult positive Physician Certification 2 Midnight Certification Type: Admission for Inpatient Services Order for Inpatient Services The services are ordered in accordance with Medicare regulations or non- Medicare payer requirements, as applicable. In the case of services not specified as inpatient-only, they are appropriately provided as inpatient services in accordance with the 2-midnight benchmark. Estimated LOS (days): 3 days is the estimated time the patient will need to remain in the hospital, assuming treatment plan goals are met and no additional complications. Post-Hospital Plan: Not yet determined Dennis York MD R2 Sep 02, 2016 17:21
[2016-09-02] MEDS ORDERED: ONDANSETRON HCL 4 MG/2 ML VIAL IV PRN (17:30)
[2016-09-02] MEDS ORDERED: NALOXONE HCL 0.4 MG/ML AMP IV PRN (17:30)
[2016-09-02 17:48] VITALS: BP 205/129; PULSE 77; RESP 18; O2SAT 100
[2016-09-02] MEDS ORDERED: hydrALAZINE HCL 20 MG/ML VIAL IV PUSH ONE (18:00)
[2016-09-02] MEDS: METOCLOPRAMIDE HCL 10 MG/2 ML VIAL IVS SCH ×2 (18:09→23:36)
[2016-09-02] MEDS: D5-1/2 NS + KCL 20 MEQ INJ 1,000 ML IV SCH (18:10)
[2016-09-02 18:11] VITALS: BP 189/99; PULSE 77
[2016-09-02 19:07] LABS: BLOOD, URINE NEG (NEG); COMMENT (UR) CULT NOT INDICATED; CULTURE IF INDICATED CULT NOT INDICATED; GLUCOSE,URINE NEG (NEG); KETONE, URINE NEG (NEG); NITRITE,URINE NEG (NEG); SQUAMOUS EPITHELIAL CELL URINE 2 /hpf (0-5); URINE COLOR LIGHT-YELLOW (YELLW/STRAW)
[2016-09-02 20:00] VITALS: BP 180/102; PULSE 84; RESP 22; TEMP 97.3; O2SAT 100
[2016-09-02] MEDS: DOCUSATE SODIUM 50 MG/SENNA 8.6 MG TAB PO SCH (20:12)
[2016-09-02] MEDS: SODIUM CHLORIDE 0.9% FLUSH 10 ML FLUSH IV FLUSH SCH (20:12)
[2016-09-02] MEDS: PANTOPRAZOLE SODIUM 40 MG VIAL IVP SCH (20:13)
[2016-09-02] MEDS: HYDROmorphone HCL PF 1 MG/ML VIAL IV PRN ×2 (20:13→23:43)
[2016-09-02] MEDS: cloNIDine HCL 0.1 MG TAB PO PRN (20:19)
[2016-09-02 23:00] VITALS: PULSE 77
[2016-09-02] MEDS: ACETAMINOPHEN 325 MG TAB PO PRN (23:43)
[2016-09-03] VITALS (7 sets, daily range): BP systolic 130–183; BP diastolic 84–104; PULSE 62–86; RESP 19–20; TEMP 96.1–97.4; O2SAT 97–100
[2016-09-03 00:16] LABS: REVIEW FLAG FINAL
[2016-09-03] MEDS: D5-1/2 NS + KCL 20 MEQ INJ 1,000 ML IV SCH ×3 (05:29→14:11)
[2016-09-03] MEDS: METOCLOPRAMIDE HCL 10 MG/2 ML VIAL IVS SCH ×4 (05:29→23:39)
[2016-09-03] MEDS: HYDROmorphone HCL PF 1 MG/ML VIAL IV PRN ×3 (05:41→18:12)
--- NOTE | 2016-09-03 05:58 | MB ---
cc: LOLY SAMPSON MD DATE OF CONSULTATION 09/02/2016 REASON FOR CONSULTATION SBO versus ileus. HISTORY OF PRESENT ILLNESS The patient is a 41-year-old female with history of several medical issues including endometriosis, status post small bowel resection and the patient with a history of an ileostomy done in [place], [place], in 2012. The patient also was noted to have small bowel obstruction x 3 treated medically. The patient presents with acute onset of abdominal pain x 1 week. She states the pain is somewhat diffuse; it was 9/10 and progressed and is currently a 9/10. She states she does get some relief with the pain medication but the pain is sharp. It is better with lying still, worse with movement. Again, has had similar pain approximately three times with conservative management. She does have several episodes of nausea, vomiting; however, she states her nausea and vomiting has currently resolved. Her last bowel obstruction was around 2012 and she has recovered well and has not had one since. She does note difficult using the bathroom and noted some blood on the toilet paper following doing this. She did have a previous colonoscopy in 2011 which was normal. Otherwise she denies any fevers or chills. PAST MEDICAL HISTORY Hypertension. Endometriosis SURGICAL HISTORY 1. Small bowel resection with ileostomy in [place], [place], for endometriosis. 2. Hysterectomy. 3. Rectal polyp removal. 4. Ovarian cyst removed. MEDICATIONS See EMR. ALLERGIES CODEINE. FAMILY HISTORY Mother with hypertension. Grandmother with colon cancer. SOCIAL HISTORY Occasional EtOH, positive smoking. Denies IVDA. REVIEW OF SYSTEMS GENERAL: Denies fevers or chills. HEENT: Denies eye pain, ear pain. NECK: Denies swelling or pain. RESPIRATORY: Denies cough or wheeze. CARDIAC: Denies palpitations, hypertension. ABDOMEN: Complaining of nausea, vomiting, abdominal pain. MUSCULOSKELETAL: Denies arthralgias, myalgias. INTEGUMENT: Denies wheezing or rash. ENDOCRINE: Denies polyuria, polydipsia. NEUROLOGIC: Denies numbness or tingling. PSYCH: Denies change in his sensorium or confusion. PHYSICAL EXAMINATION GENERAL: The patient in no acute distress. VITAL SIGNS: Temperature 97.8, pulse 77, respirations 14, blood pressure 189/99. Saturation 100%. HEENT: PERRLA. Pupils equal, round and reactive. NECK: Supple. Trachea midline. LUNGS: Bilateral expansion. Clear. HEART: S1-S2 regular. ABDOMEN: Soft, positive mild distension. Positive tenderness to palpation, diffuse, more so right-sided and lower quadrant. No rebound or guarding. EXTREMITIES: Warm, well-perfused. INTEGUMENT: No obvious masses or lesions. PSYCH: Normal mood. Good insight. NEUROLOGIC: 5/5 motor. A&O x 4. LABORATORY AND DIAGNOSTIC DATA WBC 5, hemoglobin 12.2, hematocrit 38, platelets 186. Sodium 141, potassium 3.5, chloride 108, BUN 17, creatinine 1.2, glucose 93, calcium 9, AST 15, ALT 31, lipase 96. INR is 1. IMAGING STUDIES CT reviewed by myself. Dilated loops of small bowel right lower quadrant close to the anastomosis line, partial versus localized ileus, pleural thickening. ASSESSMENT The patient is a 41-year-old female who presents with a history of several surgeries and medical issues with small-bowel obstruction versus ileus. PLAN After full clinical, radiologic and laboratory workup the patient with the above-named issues including small bowel obstruction. 1. At this point recommend keeping the patient n.p.o., IV fluids, check and correct any abnormal electrolytes. 2. Pain control. 3. Encourage ambulation. 4. At this point we can hold off on NG tube. We will consider placement of NG tube if the patient develops more episodes of nausea or vomiting. 5. The patient also may benefit from small bowel follow-through in several days pending course. This was discussed with the patient and mother at bedside. They state agreement and understanding. MD JOE Cortez/PREET /11:10 PM /5:48 AM
[2016-09-03 06:04] LABS: POTASSIUM 3.6 MEQ/L (3.5-5.1)
[2016-09-03 06:35] LABS: AUTOMATED NEUTROPHIL # 2.6 TH/MM3 (1.8-7.7); BASOPHIL % 0.8 % (0.0-2.0); EOSINOPHIL # 0.3 TH/MM3 (0-0.4); EOSINOPHIL % 5.2 % (0.0-4.0); HEMATOCRIT 36.5 % (35.0-46.0); HEMO FLAGS DIFF FINAL; LYMPHOCYTE # 1.5 TH/MM3 (1.0-4.8); MEAN CELL VOLUME 90.7 FL (80.0-100.0); MEAN CORPUSCULAR HEMOGLOBIN 29.4 PG (27.0-34.0); MEAN CORPUSCULAR HGB CONC 32.4 % (32.0-36.0); MONO % 8.9 % (0.0-8.0); NEUT % 53.1 % (16.0-70.0); PLATELET COUNT 155 TH/MM3 (150-450); RED BLOOD COUNT 4.03 MIL/MM3 (4.00-5.30); RED CELL DISTRIBUTION WIDTH 14.6 % (11.6-17.2); WHITE BLOOD COUNT 4.8 TH/MM3 (4.0-11.0)
--- NOTE | 2016-09-03 08:08 | HHI.FPPN ---
Subjective Remarks Pt. seen, examined and discussed with the medicine team. This is a 41 yo female with history of small bowel obstruction X3 who presents with one week of worsening abdominal pain. Initially had nausea and vomiting but this has since resolved. Objective Vitals Vital Signs Date Time Temp Pulse Resp B/P Pulse Ox O2 Delivery O2 Flow Rate FiO2 09/03/16 07:49 97.2 65 20 139/84 97 09/03/16 04:00 96.1 71 20 130/87 98 09/03/16 00:00 97.2 74 20 164/103 98 09/02/16 20:00 97.3 84 22 180/102 100 09/02/16 18:11 77 189/99 09/02/16 18:10 18 09/02/16 17:48 77 18 205/129 100 Room Air 09/02/16 15:33 18 99 Room Air 09/02/16 14:55 97.8 77 14 207/108 98 I/O 09/02/16 09/02/16 09/02/16 09/03/16 09/03/16 09/03/16 07:00 15:00 23:00 07:00 15:00 23:00 Intake Total 0 ml Output Total 650 ml Balance -650 ml Intake Oral 0 ml Output Urine Total 650 ml # Bowel Movements 0 Result Diagram: 09/03/16 0430 09/03/16 0430 A/P Assessment and Plan 41 year old female with a history of small bowel resection for endometriosis presents with small bowel obstruction and blood in stools. Problem List: (1) Small bowel obstruction due to postoperative adhesions Status: Acute Plan: History of small bowel resection for endometriosis. Having nausea, vomiting, and abdominal pain. CT abdomen showing solitary dilated loop of small bowel in the right lower quadrant adjacent to one of the anastomosis suture lines. No proximally dilated small bowel. This could represent a partial small bowel obstruction or localized ileus. Lipase normal. Liver enzymes normal. Bilirubin normal. - NPO, advance diet as tolerated - IVF with D5 1/2 NS with 20 KCl at 140 mls/hr - Low threshold for NG tube - Low threshold for surgical consult - Reglan, sabine-colace for bowel regimen (2) Blood in stool Status: Acute Plan: Hemoccult positive stool - Consult GI - Trend H&H's - Pantoprazole IV 40 mg bid - NPO in case of endoscopy - Stool studies (3) Hypertensive urgency Status: Acute Plan: BP 207/108 on admission. - Hydralazine IV once now - Resume amlodipine 10 mg daily - Clonidine 0.1 mg PO PRN for BP >170/100 - Monitor for end-organ damage (4) Acute kidney injury Status: Acute Plan: BUN 17, creatinine 1.27, difficult to say what her baseline is. It was 1.31 on 06/23/16, and 1.07 on 04/20/16. - Dose medications renally - Avoid nephrotoxic agents (5) Nutrition, metabolism, and development symptoms Status: Acute Plan: IVF D5 1/2 NS at 140 mls/hr with 20 meQ KCl Monitor and replace electrolytes NPO for small bowel obstruction and GI bleed (6) Contraindication to anticoagulation therapy Status: Acute Plan: Hemoccult positive Apryl Hung MD Sep 03, 2016 08:08
[2016-09-03] MEDS: DOCUSATE SODIUM 50 MG/SENNA 8.6 MG TAB PO SCH ×2 (09:02→23:40)
[2016-09-03] MEDS: PANTOPRAZOLE SODIUM 40 MG VIAL IVP SCH ×2 (09:02→23:40)
[2016-09-03] MEDS: SODIUM CHLORIDE 0.9% FLUSH 10 ML FLUSH IV FLUSH SCH ×2 (09:04→23:39)
--- NOTE | 2016-09-03 09:18 | HHI.FPPN ---
Subjective Remarks No acute events. Had nausea overnight but no vomiting. No flatus or bowel movement. Abdominal pain improved. Reports mild increase in distension. Mediocre appetite. (Dennis York MD R2) Objective Vitals Vital Signs Date Time Temp Pulse Resp B/P Pulse Ox O2 Delivery O2 Flow Rate FiO2 09/03/16 07:49 97.2 65 20 139/84 97 09/03/16 04:00 96.1 71 20 130/87 98 09/03/16 00:00 97.2 74 20 164/103 98 09/02/16 23:00 77 09/02/16 20:00 97.3 84 22 180/102 100 09/02/16 18:11 77 189/99 09/02/16 18:10 18 09/02/16 17:48 77 18 205/129 100 Room Air 09/02/16 15:33 18 99 Room Air 09/02/16 14:55 97.8 77 14 207/108 98 I/O 09/02/16 09/02/16 09/02/16 09/03/16 09/03/16 09/03/16 07:00 15:00 23:00 07:00 15:00 23:00 Intake Total 609 ml 0 ml Output Total 650 ml Balance -41 ml 0 ml Intake Oral 0 ml 0 ml IV Total 609 ml Output Urine Total 650 ml # Bowel Movements 0 (Dennis York MD R2) Result Diagram: 09/03/16 0430 09/03/16 0430 Objective Remarks GENERAL: Lying in bed, comfortable SKIN: No rashes, ecchymoses or lesions. HEAD: Atraumatic. Normocephalic. No temporal or scalp tenderness. EYES: Pupils equal round and reactive. Extraocular motions intact. No scleral icterus. No injection or drainage. ENT: Nose without bleeding, purulent drainage or septal hematoma. Throat without erythema, tonsillar hypertrophy or exudate. Uvula midline. Airway patent. NECK: Trachea midline. No JVD or lymphadenopathy. Supple, nontender, no meningeal signs. CARDIOVASCULAR: Regular rate and rhythm without murmurs, gallops, or rubs. Normal pulses RESPIRATORY: Clear to auscultation. Breath sounds equal bilaterally. No wheezes , rales, or rhonchi. GASTROINTESTINAL: Abdomen soft, mild diffuse tenderness, no rebound or guarding , nondistended. Decreased bowel sounds but present. Surgical scars on abdomen. MUSCULOSKELETAL: Extremities without clubbing, cyanosis, or edema. No joint tenderness, effusion, or edema noted. No calf tenderness. NEUROLOGICAL: Awake and alert. Cranial nerves II through XII intact. Motor and sensory grossly within normal limits. (Dennis York MD R2) A/P Assessment and Plan 41 year old female with a history of small bowel resection for endometriosis presents with small bowel obstruction and blood in stools. Discharge Planning Pending workup for GI bleed, and resolution of SBO. (Dennis York MD R2) Attending Attestation Patient seen and examined. Case reviewed and discussed with the resident team. Agree with plan of care as discussed with me and documented in the resident note. (Apryl Hung MD) Problem List: (1) Small bowel obstruction due to postoperative adhesions Status: Acute Plan: History of small bowel resection for endometriosis. Having nausea, vomiting, and abdominal pain. CT abdomen showing solitary dilated loop of small bowel in the right lower quadrant adjacent to one of the anastomosis suture lines. No proximally dilated small bowel. This could represent a partial small bowel obstruction or localized ileus. Lipase normal. Liver enzymes normal. Bilirubin normal. - NPO, advance diet as tolerated - IVF with D5 1/2 NS with 20 KCl at 140 mls/hr - Monitor and replace electrolytes - Low threshold for NG tube - General surgical consulted, appreciate recommendations - Reglan, sabine-colace for bowel regimen (2) Blood in stool Status: Acute Plan: Hemoccult positive stool - Consult GI - Trend H&H's - Pantoprazole IV 40 mg bid - NPO in case of endoscopy - Stool studies (3) Hypertensive urgency Status: Acute Plan: BP 207/108 on admission. - Hydralazine IV once now - Resume amlodipine 10 mg daily - Clonidine 0.1 mg PO PRN for BP >170/100 - Monitor for end-organ damage (4) Acute kidney injury Status: Resolved Plan: BUN 17, creatinine 1.27, difficult to say what her baseline is. It was 1.31 on 06/23/16, and 1.07 on 04/20/16. This morning creatinine returned to normal at 0.91. - Dose medications renally - Avoid nephrotoxic agents - IVF (5) Nutrition, metabolism, and development symptoms Status: Acute Plan: IVF D5 1/2 NS at 140 mls/hr with 20 meQ KCl Monitor and replace electrolytes NPO for small bowel obstruction and GI bleed (6) Contraindication to anticoagulation therapy Status: Acute Plan: Hemoccult positive (Dennis York MD R2) Dennis York MD R2 Sep 03, 2016 09:18 Apryl Hung MD Sep 03, 2016 11:45
--- NOTE | 2016-09-03 09:42 | HHI.PR ---
Subjective Subjective Notes mild nausea overnight, no vomiting, no flatus Objective Vitals/I&O Vital Signs Date Time Temp Pulse Resp B/P Pulse Ox O2 Delivery O2 Flow Rate FiO2 09/03/16 07:49 97.2 65 20 139/84 97 09/02/16 17:48 Room Air Labs Laboratory Tests Test 09/02/16 09/02/16 09/02/16 09/02/16 15:45 18:55 23:35 23:40 White Blood Count 5.0 Red Blood Count 4.12 Hemoglobin 12.2 12.8 Hematocrit 38.0 40.0 Mean Corpuscular Volume 92.2 Mean Corpuscular Hemoglobin 29.5 Mean Corpuscular Hemoglobin 32.0 Concent Red Cell Distribution Width 14.3 Platelet Count 186 Mean Platelet Volume 10.5 Neutrophils (%) (Auto) 40.2 Lymphocytes (%) (Auto) 45.4 Monocytes (%) (Auto) 7.3 Eosinophils (%) (Auto) 6.5 Basophils (%) (Auto) 0.6 Neutrophils # (Auto) 2.0 Lymphocytes # (Auto) 2.3 Monocytes # (Auto) 0.4 Eosinophils # (Auto) 0.3 Basophils # (Auto) 0.0 CBC Comment DIFF FINAL Differential Comment Prothrombin Time 10.5 Prothromb Time International 1.0 Ratio Activated Partial 27.3 Thromboplast Time Sodium Level 141 Potassium Level 3.5 Chloride Level 108 Carbon Dioxide Level 25.1 Anion Gap 8 Blood Urea Nitrogen 17 Creatinine 1.27 Estimat Glomerular Filtration 57 Rate Random Glucose 93 Lactic Acid Level 0.9 Calcium Level 9.0 Total Bilirubin 0.5 Aspartate Amino Transf 15 (AST/SGOT) Alanine Aminotransferase 31 (ALT/SGPT) Alkaline Phosphatase 92 Total Protein 7.2 Albumin 3.7 Lipase 96 Urine Color LIGHT-YELLOW Urine Turbidity CLEAR Urine pH 6.0 Urine Specific [place] 1.043 Urine Protein NEG Urine Glucose (UA) NEG Urine Ketones NEG Urine Occult Blood NEG Urine Nitrite NEG Urine Bilirubin NEG Urine Urobilinogen LESS THAN 2.0 Urine Leukocyte Esterase MOD Urine RBC 2 Urine WBC 7 Urine Squamous Epithelial 2 Cells Microscopic Urinalysis Comment CULT NOT INDICATED Blood Type O POSITIVE Antibody Screen NEGATIVE Blood Bank Comment Test 09/03/16 04:30 White Blood Count 4.8 Red Blood Count 4.03 Hemoglobin 11.8 Hematocrit 36.5 Mean Corpuscular Volume 90.7 Mean Corpuscular Hemoglobin 29.4 Mean Corpuscular Hemoglobin 32.4 Concent Red Cell Distribution Width 14.6 Platelet Count 155 Mean Platelet Volume 11.0 Neutrophils (%) (Auto) 53.1 Lymphocytes (%) (Auto) 32.0 Monocytes (%) (Auto) 8.9 Eosinophils (%) (Auto) 5.2 Basophils (%) (Auto) 0.8 Neutrophils # (Auto) 2.6 Lymphocytes # (Auto) 1.5 Monocytes # (Auto) 0.4 Eosinophils # (Auto) 0.3 Basophils # (Auto) 0.0 CBC Comment DIFF FINAL Differential Comment Hematology Comments Sodium Level 141 Potassium Level 3.6 Chloride Level 108 Carbon Dioxide Level 24.0 Anion Gap 9 Blood Urea Nitrogen 12 Creatinine 0.91 Estimat Glomerular Filtration 83 Rate Random Glucose 88 Calcium Level 8.8 Cardiovascular: Regular Lungs: Clear Abdomen: Other (mild ttp, mild distension) A/P Assessment and Plan SBO PLAN AXR this bowel rest, npo pain control oob ng if vomiting Aly Clancy MD Sep 03, 2016 09:41
--- NOTE | 2016-09-03 10:12 | RADRPT ---
EXAM DATE/TIME: 09/03/2016 09:50 [facility] COMPARISON: CT ABDOMEN & PELVIS W CONTRAST, September 02, 2016, 16:07. INDICATIONS : Small bowel obstruction. MEDICAL HISTORY : Cardiovascular disease. Hypertension Endometriosis. SURGICAL HISTORY : Hysterectomy. Colon resection. ENCOUNTER: Subsequent ACUITY: 2 days PAIN SCORE: 6/10 LOCATION: Right lower quadrant abdomen FINDINGS: There is no evidence for obstruction. Solid stool is seen in the ascending transverse colon. Minima l colonic gas is seen in the descending colon and rectum. There is no significant small bowel dilata tion. There is no free air. No calcifications are noted. CONCLUSION: Negative for obstruction. Bridger Pink MD FACR on September 03, 2016 at 10:07 Board Certified Radiologist. This report was verified electronically.
--- NOTE | 2016-09-03 11:21 | HHI.FPPN ---
Subjective Remarks Patient was seen, examined and discussed with the medicine team. This is a 41-year-old female with history of ileus/small bowel obstruction as a result of multiple previous abdominal surgeries including hysterectomy, surgery for endometriosis, and small bowel resection and is known to have multiple adhesions. She's had discomfort in her abdomen for approximately 1 week, but it keeps progressing. She is no longer vomiting. She 's had episodes like this in the past which were managed medically. Please see history and physical examination for this admission for additional historical details, including past, family, social history and review of systems at the time of admission. When seen this morning, she still is having abdominal pain but no nausea. She is not passing any gas. The pain is primarily in her lower abdomen on the right. Objective Vitals Vital Signs Date Time Temp Pulse Resp B/P Pulse Ox O2 Delivery O2 Flow Rate FiO2 09/03/16 07:49 97.2 65 20 139/84 97 09/03/16 04:00 96.1 71 20 130/87 98 09/03/16 00:00 97.2 74 20 164/103 98 09/02/16 23:00 77 09/02/16 20:00 97.3 84 22 180/102 100 09/02/16 18:11 77 189/99 09/02/16 18:10 18 09/02/16 17:48 77 18 205/129 100 Room Air 09/02/16 15:33 18 99 Room Air 09/02/16 14:55 97.8 77 14 207/108 98 I/O 09/02/16 09/02/16 09/02/16 09/03/16 09/03/16 09/03/16 07:00 15:00 23:00 07:00 15:00 23:00 Intake Total 609 ml 0 ml Output Total 650 ml Balance -41 ml 0 ml Intake Oral 0 ml 0 ml IV Total 609 ml Output Urine Total 650 ml # Bowel Movements 0 Result Diagram: 09/03/16 0430 09/03/16 0430 Imaging Last Impressions Abdomen X-Ray 09/03/16 0000 Signed Impressions: Service Date/Time: Saturday, September 03, 2016 09:50 - CONCLUSION: Negative for obstruction. Bridger Pink MD FACR Abdomen/Pelvis CT 09/02/16 1517 Signed Impressions: Service Date/Time: Friday, September 02, 2016 16:07 - CONCLUSION: 1. Solitary dilated loop of small bowel in the right lower quadrant adjacent to one of the anastomosis suture lines. No proximally dilated small bowel. This could represent a partial small bowel obstruction or localized ileus. 2. Nodules and pleural thickening in the right lower chest, stable from January 2016. Nick Phelps MD Objective Remarks GENERAL: Lying in bed, uncomfortable with right lower quadrant abdominal discomfort SKIN: No rashes, ecchymoses or lesions. HEAD: Atraumatic. Normocephalic. EYES: Pupils equal round and reactive. Extraocular motions intact. No scleral icterus. No injection or drainage. NECK: Supple, nontender, no meningeal signs. CARDIOVASCULAR: Regular rate and rhythm without murmurs, gallops, or rubs. Normal pulses RESPIRATORY: Clear to auscultation. Breath sounds equal bilaterally. No wheezes , rales, or rhonchi. GASTROINTESTINAL: Abdomen soft, tenderness in right lower quadrant, no rebound or guarding, slightly distended. No audible bowel sounds this morning. Surgical scars on abdomen. MUSCULOSKELETAL: Extremities without clubbing, cyanosis, or edema. No joint tenderness, effusion, or edema noted. No calf tenderness. NEUROLOGICAL: Awake and alert. Cranial nerves II through XII intact. Motor and sensory grossly within normal limits. A/P Assessment and Plan 41 year old female with a history of small bowel resection for endometriosis presents with small bowel obstruction and blood in stools. Discharge Planning Pending workup for GI bleed, and resolution of SBO. Attending Attestation Patient seen and examined. Case reviewed and discussed with the resident team. Agree with plan of care as discussed with me and documented in the resident note. Problem List: (1) Small bowel obstruction due to postoperative adhesions Status: Acute Plan: History of small bowel resection for endometriosis. Having nausea, vomiting, and abdominal pain. CT abdomen showing solitary dilated loop of small bowel in the right lower quadrant adjacent to one of the anastomosis suture lines. No proximally dilated small bowel. This could represent a partial small bowel obstruction or localized ileus. Lipase normal. Liver enzymes normal. Bilirubin normal. - NPO, advance diet as tolerated - IVF with D5 1/2 NS with 20 KCl at 140 mls/hr - Monitor and replace electrolytes - Low threshold for NG tube - General surgical consulted, appreciate recommendations - Reglan, sabine-colace for bowel regimen (2) Blood in stool Status: Acute Plan: Hemoccult positive stool - Consult GI - Trend H&H's - Pantoprazole IV 40 mg bid - NPO in case of endoscopy - Stool studies (3) Hypertensive urgency Status: Acute Plan: BP 207/108 on admission. - Hydralazine IV once now - Resume amlodipine 10 mg daily - Clonidine 0.1 mg PO PRN for BP >170/100 - Monitor for end-organ damage (4) Acute kidney injury Status: Resolved Plan: BUN 17, creatinine 1.27, difficult to say what her baseline is. It was 1.31 on 06/23/16, and 1.07 on 04/20/16. This morning creatinine returned to normal at 0.91. - Dose medications renally - Avoid nephrotoxic agents - IVF (5) Nutrition, metabolism, and development symptoms Status: Acute Plan: IVF D5 1/2 NS at 140 mls/hr with 20 meQ KCl Monitor and replace electrolytes NPO for small bowel obstruction and GI bleed (6) Contraindication to anticoagulation therapy Status: Acute Plan: Hemoccult positive Apryl Hung MD Sep 03, 2016 11:21
--- NOTE | 2016-09-03 13:01 | PD.CONS ---
HPI History of Present Illness This is a 41 year old female who presented yesterday with abd pain, nausea, vomiting. Onset 1 qeek ago. Pain is on the right side where she says she had ileostomy previously. 1 x episode blood intermingled in stool, 2 d ago and no BM since. She has been constipated for the last 3 days. She feels like when she eats to food just sits in her stomach. Denies diet changes, new meds. Admits prior frequent use NSAIDS for about 1 month. had EGD, colonoscopy in 2011 and said findings include "my intestines were torn from endometriosis", cannot recall EGD findings. Has hx colon resection, ileostomy from endometriosis. Per EMR she has had SBO x 3 since 2012. (Maryam Padron) PFSH Past Medical History HTN endometriosis Past Surgical History colon resection r/t endometriosis hysterectomy ileostomy closure (Maryam Padron) Coded Allergies: Codeine (Verified Allergy, Unknown, 09/02/16) Family History colon CA cervical CA HTN Social History smokes 1ppwk per EMR drinks 6-12 drinks on weekends no illicit drugs (Maryam Padron) Review of Systems Constitutional: DENIES: Fever Eyes: DENIES: Blurred vision Ears, nose, mouth, throat: DENIES: Hearing loss Gastrointestinal: COMPLAINS OF: Abdominal pain, Bloody stools, Constipation, Nausea, Vomiting, DENIES: Black stools, Diarrhea, Hematemesis Genitourinary: DENIES: Hematuria Musculoskeletal: DENIES: Muscle aches Neurologic: DENIES: Abnormal gait Psychiatric: DENIES: Confusion (Maryam Padron) GI Exam Vitals I&O Vital Signs Date Time Temp Pulse Resp B/P Pulse Ox O2 Delivery O2 Flow Rate FiO2 09/03/16 12:00 97.4 62 19 183/96 100 09/03/16 07:49 97.2 65 20 139/84 97 09/03/16 04:00 96.1 71 20 130/87 98 09/03/16 00:00 97.2 74 20 164/103 98 09/02/16 23:00 77 09/02/16 20:00 97.3 84 22 180/102 100 09/02/16 18:11 77 189/99 09/02/16 18:10 18 09/02/16 17:48 77 18 205/129 100 Room Air 09/02/16 15:33 18 99 Room Air 09/02/16 14:55 97.8 77 14 207/108 98 I/O 09/02/16 09/02/16 09/02/16 09/03/16 09/03/16 09/03/16 07:00 15:00 23:00 07:00 15:00 23:00 Intake Total 609 ml 0 ml Output Total 650 ml Balance -41 ml 0 ml Intake Oral 0 ml 0 ml IV Total 609 ml Output Urine Total 650 ml # Bowel Movements 0 Imaging Last Impressions Abdomen X-Ray 09/03/16 0000 Signed Impressions: Service Date/Time: Saturday, September 03, 2016 09:50 - CONCLUSION: Negative for obstruction. Bridger Pink MD FACR Abdomen/Pelvis CT 09/02/16 1517 Signed Impressions: Service Date/Time: Friday, September 02, 2016 16:07 - CONCLUSION: 1. Solitary dilated loop of small bowel in the right lower quadrant adjacent to one of the anastomosis suture lines. No proximally dilated small bowel. This could represent a partial small bowel obstruction or localized ileus. 2. Nodules and pleural thickening in the right lower chest, stable from January 2016. Nick Phelps MD Laboratory Test 09/02/16 09/02/16 09/02/16 09/02/16 15:45 18:55 23:35 23:40 White Blood Count 5.0 TH/MM3 Red Blood Count 4.12 MIL/MM3 Hemoglobin 12.2 GM/DL 12.8 GM/DL Hematocrit 38.0 % 40.0 % Mean Corpuscular Volume 92.2 FL Mean Corpuscular Hemoglobin 29.5 PG Mean Corpuscular Hemoglobin 32.0 % Concent Red Cell Distribution Width 14.3 % Platelet Count 186 TH/MM3 Mean Platelet Volume 10.5 FL Neutrophils (%) (Auto) 40.2 % Lymphocytes (%) (Auto) 45.4 % Monocytes (%) (Auto) 7.3 % Eosinophils (%) (Auto) 6.5 % Basophils (%) (Auto) 0.6 % Neutrophils # (Auto) 2.0 TH/MM3 Lymphocytes # (Auto) 2.3 TH/MM3 Monocytes # (Auto) 0.4 TH/MM3 Eosinophils # (Auto) 0.3 TH/MM3 Basophils # (Auto) 0.0 TH/MM3 CBC Comment DIFF FINAL Differential Comment Prothrombin Time 10.5 SEC Prothromb Time International 1.0 RATIO Ratio Activated Partial 27.3 SEC Thromboplast Time Sodium Level 141 MEQ/L Potassium Level 3.5 MEQ/L Chloride Level 108 MEQ/L Carbon Dioxide Level 25.1 MEQ/L Anion Gap 8 MEQ/L Blood Urea Nitrogen 17 MG/DL Creatinine 1.27 MG/DL Estimat Glomerular Filtration 57 ML/MIN Rate Random Glucose 93 MG/DL Lactic Acid Level 0.9 mmol/L Calcium Level 9.0 MG/DL Total Bilirubin 0.5 MG/DL Aspartate Amino Transf 15 U/L (AST/SGOT) Alanine Aminotransferase 31 U/L (ALT/SGPT) Alkaline Phosphatase 92 U/L Total Protein 7.2 GM/DL Albumin 3.7 GM/DL Lipase 96 U/L Urine Color LIGHT-YELLOW Urine Turbidity CLEAR Urine pH 6.0 Urine Specific [place] 1.043 Urine Protein NEG mg/dL Urine Glucose (UA) NEG mg/dL Urine Ketones NEG mg/dL Urine Occult Blood NEG Urine Nitrite NEG Urine Bilirubin NEG Urine Urobilinogen LESS THAN 2.0 MG/DL Urine Leukocyte Esterase MOD Urine RBC 2 /hpf Urine WBC 7 /hpf Urine Squamous Epithelial 2 /hpf Cells Microscopic Urinalysis Comment CULT NOT INDICATED Blood Type O POSITIVE Antibody Screen NEGATIVE Blood Bank Comment Test 09/03/16 04:30 White Blood Count 4.8 TH/MM3 Red Blood Count 4.03 MIL/MM3 Hemoglobin 11.8 GM/DL Hematocrit 36.5 % Mean Corpuscular Volume 90.7 FL Mean Corpuscular Hemoglobin 29.4 PG Mean Corpuscular Hemoglobin 32.4 % Concent Red Cell Distribution Width 14.6 % Platelet Count 155 TH/MM3 Mean Platelet Volume 11.0 FL Neutrophils (%) (Auto) 53.1 % Lymphocytes (%) (Auto) 32.0 % Monocytes (%) (Auto) 8.9 % Eosinophils (%) (Auto) 5.2 % Basophils (%) (Auto) 0.8 % Neutrophils # (Auto) 2.6 TH/MM3 Lymphocytes # (Auto) 1.5 TH/MM3 Monocytes # (Auto) 0.4 TH/MM3 Eosinophils # (Auto) 0.3 TH/MM3 Basophils # (Auto) 0.0 TH/MM3 CBC Comment DIFF FINAL Differential Comment Hematology Comments Sodium Level 141 MEQ/L Potassium Level 3.6 MEQ/L Chloride Level 108 MEQ/L Carbon Dioxide Level 24.0 MEQ/L Anion Gap 9 MEQ/L Blood Urea Nitrogen 12 MG/DL Creatinine 0.91 MG/DL Estimat Glomerular Filtration 83 ML/MIN Rate Random Glucose 88 MG/DL Calcium Level 8.8 MG/DL Physical Examination HEENT: EOMI; normocephalic; atraumatic; no jaundice. CHEST: CTA CARDIAC: RRR ABDOMEN: Soft, nondistended, TTP RUQ, RLQ; no hepatosplenomegaly; bowel sounds are present in all four quadrants. EXTREMITIES: No clubbing, cyanosis, or edema. SKIN: Normal; no rash; no jaundice. CASH RECONCILIATION SPECIALIST: No focal deficits; alert and oriented times three. (Maryam Padron) Assessment and Plan Plan ASSESSMENT - abdominal pain, constipation - hx colon resection, SBO x 3 in last 4 years. xray neg for obstruction. CT 09-02-16 -> 1. Solitary dilated loop of small bowel in the right lower quadrant adjacent to one of the anastomosis suture lines. No proximally dilated small bowel. This could represent a partial small bowel obstruction or localized ileus. GS following, on bowel regimen, NPO, NG if n/v. consider EGD, colonoscopy when PSBO resolved PLAN - agree with GS plan - further mgmt per GS GI will sign off for now, please reconsult if needed This pt seen by myself and DR Galarza and this note is written on his behalf. (Maryam Padron) Physician Comments Seen and examined with DEHAIRING MACHINE TENDER< imaging suggestive of bowel obstruction possibly in the sigmoid colon area due to adhesions/ previous surgery. GS on case. Nothing else to add to her care at this point, will need egd/colonoscopy once bowel obstruction resolves. Will sign off, reconsult as needed. Thank you ( Zenobia Galarza MD) Maryam Padron Sep 03, 2016 13:01 Zenobia Galarza MD Sep 03, 2016 14:58
[2016-09-03] MEDS: ACETAMINOPHEN 325 MG TAB PO PRN ×2 (15:12→23:40)
[2016-09-03] MEDS: cloNIDine HCL 0.1 MG TAB PO PRN (23:43)
[2016-09-04] VITALS: BP 182/99; PULSE 62; RESP 19; TEMP 98.1; O2SAT 96
[2016-09-04] MEDS: D5-1/2 NS + KCL 20 MEQ INJ 1,000 ML IV SCH (00:39)
[2016-09-04] MEDS: HYDROmorphone HCL PF 1 MG/ML VIAL IV PRN (00:46)
[2016-09-04 04:00] VITALS: BP 147/85; PULSE 73; RESP 19; TEMP 96.8; O2SAT 98
[2016-09-04] MEDS: METOCLOPRAMIDE HCL 10 MG/2 ML VIAL IVS SCH ×2 (04:51→11:35)
[2016-09-04 05:00] LABS: HEMATOCRIT 33.8 % (35.0-46.0); MEAN CELL VOLUME 89.5 FL (80.0-100.0); MEAN CORPUSCULAR HEMOGLOBIN 30.4 PG (27.0-34.0); PLATELET COUNT 167 TH/MM3 (150-450); RED BLOOD COUNT 3.77 MIL/MM3 (4.00-5.30); RED CELL DISTRIBUTION WIDTH 14.2 % (11.6-17.2); REVIEW FLAG FINAL; WHITE BLOOD COUNT 4.3 TH/MM3 (4.0-11.0)
[2016-09-04 05:19] LABS: BICARBONATE 25.6 MEQ/L (21.0-32.0); POTASSIUM 3.4 MEQ/L (3.5-5.1)
[2016-09-04] MEDS ORDERED: POTASSIUM CHLORIDE 20 MEQ PWD PACKET PO ONE (07:15)
[2016-09-04] MEDS: D5-1/2 NS + KCL 40 MEQ INJ 1,000 ML IV SCH ×2 (07:15→15:54)
[2016-09-04 08:00] VITALS: BP 135/92; PULSE 70; RESP 16; TEMP 97.3; O2SAT 100
[2016-09-04 08:49] VITALS: O2SAT 99
--- NOTE | 2016-09-04 09:17 | HHI.FPPN ---
Subjective Remarks No acute events overnight. No nausea or vomiting since admission. Has mild appetite this morning. Abdomen soft. No bowel movement since admission. Currently getting Reglan and Pericolace. She would like to try a liquid diet. Has generalized neck swelling. No new medications started. No discrete lymph nodes. No sore throat or difficulty swallowing. No difficulty breathing. No rashes or hives. Likely due to IV fluids, lowered rate from 140 mls to 100 mls/ hr and will monitor. (Dennis York MD R2) Objective Vitals Vital Signs Date Time Temp Pulse Resp B/P Pulse Ox O2 Delivery O2 Flow Rate FiO2 09/04/16 08:49 99 21 09/04/16 08:00 97.3 70 16 135/92 100 09/04/16 04:00 96.8 73 19 147/85 98 09/04/16 00:00 98.1 62 19 182/99 96 09/03/16 20:22 99 21 09/03/16 20:00 96.8 63 20 182/104 100 09/03/16 18:42 18 09/03/16 16:12 18 09/03/16 15:54 97.0 86 20 166/99 100 09/03/16 12:00 97.4 62 19 183/96 100 I/O 09/03/16 09/03/16 09/03/16 09/04/16 09/04/16 09/04/16 06:59 14:59 22:59 06:59 14:59 22:59 Intake Total 609 ml 901 ml 0 ml 1559 ml Output Total 650 ml 500 ml 600 ml 1150 ml Balance -41 ml 401 ml -600 ml 409 ml Intake Oral 0 ml 0 ml 0 ml 0 ml IV Total 609 ml 901 ml 0 ml 1559 ml Output Urine Total 650 ml 500 ml 600 ml 1150 ml # Bowel Movements 0 0 0 0 (Dennis York MD R2) Result Diagram: 09/04/16 0403 09/04/16 0403 Imaging Last 72 hours Impressions Abdomen X-Ray 09/03/16 0000 Signed Impressions: Service Date/Time: Saturday, September 03, 2016 09:50 - CONCLUSION: Negative for obstruction. Bridger Pink MD FACR Abdomen/Pelvis CT 09/02/16 1517 Signed Impressions: Service Date/Time: Friday, September 02, 2016 16:07 - CONCLUSION: 1. Solitary dilated loop of small bowel in the right lower quadrant adjacent to one of the anastomosis suture lines. No proximally dilated small bowel. This could represent a partial small bowel obstruction or localized ileus. 2. Nodules and pleural thickening in the right lower chest, stable from January 2016. Nick Phelps MD Objective Remarks GENERAL: Lying in bed, comfortable SKIN: No rashes, ecchymoses or lesions. HEAD: Atraumatic. Normocephalic. EYES: Pupils equal round and reactive. Extraocular motions intact. No scleral icterus. No injection or drainage. NECK: Supple, nontender, no meningeal signs. CARDIOVASCULAR: Regular rate and rhythm without murmurs, gallops, or rubs. Normal pulses RESPIRATORY: Clear to auscultation. Breath sounds equal bilaterally. No wheezes , rales, or rhonchi. GASTROINTESTINAL: Abdomen soft, mild tenderness in right-mid abdomen, no rebound or guarding, soft. Decreased bowel sounds but present. Surgical scars on abdomen. MUSCULOSKELETAL: Extremities without clubbing, cyanosis, or edema. No joint tenderness, effusion, or edema noted. No calf tenderness. NEUROLOGICAL: Awake and alert. Cranial nerves II through XII intact. Motor and sensory grossly within normal limits. (Dennis York MD R2) A/P Assessment and Plan 41 year old female with a history of small bowel resection for endometriosis presents with small bowel obstruction and blood in stools. Discharge Planning Pending workup for GI bleed, and resolution of SBO. (Dennis York MD R2) Attending Attestation Patient seen and examined. Case reviewed and discussed with the resident team. Agree with plan of care as discussed with me and documented in the resident note. (Apryl Hung MD) Problem List: (1) Small bowel obstruction due to postoperative adhesions Status: Acute Plan: History of small bowel resection for endometriosis. Nausea and vomiting resolved, has constipation. CT abdomen showing solitary dilated loop of small bowel in the right lower quadrant adjacent to one of the anastomosis suture lines. No proximally dilated small bowel. This could represent a partial small bowel obstruction or localized ileus. Lipase normal. Liver enzymes normal. Bilirubin normal. Abdominal x-ray normal. - Advance to clears today, go slow, low threshold to resume NPO status. - IVF with D5 1/2 NS with 20 KCl decreased to rate of 100 mls/hr. - Monitor and replace electrolytes - Low threshold for NG tube - General surgical consulted, appreciate recommendations - Reglan, sabine-colace for bowel regimen (2) Blood in stool Status: Acute Plan: Hemoccult positive stool. Hemoglobin stable. - Consulted GI - Pantoprazole IV 40 mg bid - Transfuse if hgb <7 - Colonoscopy/EGD after resolution of SBO (3) Nutrition, metabolism, and development symptoms Status: Acute Plan: IVF D5 1/2 NS at 100 mls/hr with 20 meQ KCl Monitor and replace electrolytes Clear liquid trial (4) Contraindication to anticoagulation therapy Status: Acute Plan: Hemoccult positive (Dennis York MD R2) Dennis York MD R2 Sep 04, 2016 09:17 Apryl Hung MD Sep 04, 2016 16:25
[2016-09-04] MEDS: DOCUSATE SODIUM 50 MG/SENNA 8.6 MG TAB PO SCH (09:54)
[2016-09-04] MEDS: PANTOPRAZOLE SODIUM 40 MG VIAL IVP SCH (09:56)
[2016-09-04] MEDS: SODIUM CHLORIDE 0.9% FLUSH 10 ML FLUSH IV FLUSH SCH (09:56)
[2016-09-04] MEDS ORDERED: POTASSIUM CHLORIDE 20 MEQ CONTROLLED RELEASE TAB PO ONE (10:00)
[2016-09-04] MEDS: ACETAMINOPHEN 325 MG TAB PO PRN (10:01)
[2016-09-04] MEDS: cloNIDine HCL 0.1 MG TAB PO PRN (11:39)
[2016-09-04 12:00] VITALS: BP 175/94; PULSE 75; RESP 17; TEMP 97.7; O2SAT 100
--- NOTE | 2016-09-04 14:17 | HHI.PR ---
Subjective Subjective Notes Resting in bed +flatus Objective Vitals/I&O Vital Signs Date Time Temp Pulse Resp B/P Pulse Ox O2 Delivery O2 Flow Rate FiO2 09/04/16 12:00 97.7 75 17 175/94 100 09/04/16 08:49 21 09/02/16 17:48 Room Air Labs Laboratory Tests Test 09/04/16 04:03 White Blood Count 4.3 Red Blood Count 3.77 Hemoglobin 11.5 Hematocrit 33.8 Mean Corpuscular Volume 89.5 Mean Corpuscular Hemoglobin 30.4 Mean Corpuscular Hemoglobin 34.0 Concent Red Cell Distribution Width 14.2 Platelet Count 167 Mean Platelet Volume 10.8 Sodium Level 141 Potassium Level 3.4 Chloride Level 108 Carbon Dioxide Level 25.6 Anion Gap 7 Blood Urea Nitrogen 9 Creatinine 0.92 Estimat Glomerular Filtration 82 Rate Random Glucose 95 Calcium Level 8.9 Cardiovascular: Regular Lungs: Clear Abdomen: Non-distended, Non-tender Extremities: No edema A/P Assessment and Plan 41 year old female with SBO -Started on clear liquid diet -OOB and mobilize -Replace K -Continue non operative treatment Attending Statement patient seen at bedside no issues continue non op mgnt Attestation The exam, history, and the medical decision-making described in the above note were completed with the assistance of the mid-level provider. I reviewed and agree with the findings presented. I attest that I had a [id number] encounter with the patient on the same day, and personally performed and documented my assessment and findings in the medical record. Brianna Vega Sep 04, 2016 14:17 Aly Clancy MD Sep 13, 2016 18:48
--- NOTE | 2016-09-04 14:36 | HHI.DCPOC ---
Discharge Care Plan Diagnosis: (1) Small bowel obstruction due to postoperative adhesions Goals to Promote Your Health * To prevent worsening of your condition and complications * To maintain your health at the optimal level Directions to Meet Your Goals Take your medications as prescribed Follow your dietary instruction Follow activity as directed Keep your appointments as scheduled Take your immunizations and boosters as scheduled If your symptoms worsen call your PCP, if no PCP go to Urgent Care Center or Emergency Room Smoking is Dangerous to Your Health. Avoid second hand smoke Call the 24-hour hour crisis hotline for domestic abuse at Ulises Manzano MD R1 Sep 04, 2016 14:36
[2016-09-04] MEDS ORDERED: OMEP40CA2 PO (14:43)
[2016-09-04] MEDS ORDERED: SENN1TAB PO (14:43)
[2016-09-04] MEDS ORDERED: ONDA4TAB7 SL (14:43)
--- NOTE | 2016-09-04 15:02 | HHI.DS ---
Discharge Summary Admission Date Sep 02, 2016 at 17:13 Discharge Date: Sep 04, 2016 Admitting Diagnosis SBO versus ileus, GI bleeding, HTN (1) Small bowel obstruction due to postoperative adhesions Plan: History of small bowel resection for endometriosis. Nausea and vomiting resolved, has constipation. CT abdomen showing solitary dilated loop of small bowel in the right lower quadrant adjacent to one of the anastomosis suture lines. No proximally dilated small bowel. This could represent a partial small bowel obstruction or localized ileus. Lipase normal. Liver enzymes normal. Bilirubin normal. Abdominal x-ray normal. - Advance to clears today, go slow, low threshold to resume NPO status. - IVF with D5 1/2 NS with 20 KCl decreased to rate of 100 mls/hr. - Monitor and replace electrolytes - Low threshold for NG tube - General surgical consulted, appreciate recommendations - Reglan, sabine-colace for bowel regimen (2) Blood in stool Diagnosis: Principal Plan: Hemoccult positive stool. Hemoglobin stable. - Consulted GI - Pantoprazole IV 40 mg bid - Transfuse if hgb <7 - Colonoscopy/EGD after resolution of SBO (3) Nutrition, metabolism, and development symptoms Diagnosis: Principal Plan: IVF D5 1/2 NS at 100 mls/hr with 20 meQ KCl Monitor and replace electrolytes Clear liquid trial (4) Contraindication to anticoagulation therapy Diagnosis: Principal Plan: Hemoccult positive Brief History 41 year old female with a past medical history of hypertension, endometriosis with partial small bowel resection, hysterectomy presents to the ED with abdominal pain, nausea, vomiting, and blood in the stool. Symptoms started one week ago. Abdominal pain is diffuse and crampy. She had one episode of vomiting last night and one today. She has a bowel movement daily but they are harder and she is straining more to go. She noticed blood in her stool for the past 2 days. It was a small amount of blood streaking the stools and on the toilet paper. She notes it was reddish, not black or bright red per se. She's had small bowel obstruction three times since her small bowel resection in 2012. She has required an NG tube on two of these occasions. She's connor a colonoscopy and EGD in 2011 that were normal. Her BP in the ED is significantly elevated. She has been out of her amlodipine. She has a mild headache. No blurry vision. No neurological deficits. CBC/BMP: 09/04/16 0403 09/04/16 0403 Significant Findings Laboratory Tests Test 09/02/16 09/02/16 09/03/16 09/04/16 15:45 18:55 04:30 04:03 Lymphocytes (%) (Auto) 45.4 % (9.0-44.0) Eosinophils (%) (Auto) 6.5 % (0.0-4.0) 5.2 % (0.0-4.0) Chloride Level 108 MEQ/L 108 MEQ/L 108 MEQ/L (98-107) (98-107) (98-107) Creatinine 1.27 MG/DL (0.50-1.00) Estimat Glomerular Filtration 57 ML/MIN (>89) 83 ML/MIN (>89) 82 ML/MIN (>89) Rate Urine Specific [place] 1.043 (1.002-1.035) Urine Leukocyte Esterase MOD (NEG) Urine WBC 7 /hpf (0-5) Monocytes (%) (Auto) 8.9 % (0.0-8.0) Red Blood Count 3.77 MIL/MM3 (4.00-5.30) Hemoglobin 11.5 GM/DL (11.6-15.3) Hematocrit 33.8 % (35.0-46.0) Potassium Level 3.4 MEQ/L (3.5-5.1) PE at Discharge GENERAL: Lying in bed, comfortable SKIN: No rashes, ecchymoses or lesions. HEAD: Atraumatic. Normocephalic. EYES: Pupils equal round and reactive. Extraocular motions intact. No scleral icterus. No injection or drainage. NECK: Supple, nontender, no meningeal signs. CARDIOVASCULAR: Regular rate and rhythm without murmurs, gallops, or rubs. Normal pulses RESPIRATORY: Clear to auscultation. Breath sounds equal bilaterally. No wheezes , rales, or rhonchi. GASTROINTESTINAL: Abdomen soft, mild tenderness in right-mid abdomen, no rebound or guarding, soft. Decreased bowel sounds but present. Surgical scars on abdomen. MUSCULOSKELETAL: Extremities without clubbing, cyanosis, or edema. No joint tenderness, effusion, or edema noted. No calf tenderness. NEUROLOGICAL: Awake and alert. Cranial nerves II through XII intact. Motor and sensory grossly within normal limits. Hospital Course Patient was admitted given nothing by mouth and started on IV fluids for resuscitation. NG tube was not placed as the patient was not actively having any nausea or vomiting. CT examination showed a partial small bowel obstruction or localized ileus.Hemoglobin and hematocrit were serially trended secondary to blood in her stool which were all stable. Gen. surgery and gastroenterology were consulted for further management. Both services agreed to medical management without NG tube placement. Small bowel follow-through on hospital day 2 showed no obstruction. On hospital day 3 patient stated she had begun to pass gas, but did not have a BM. She was mildly hypokalemic which was replaced with by mouth potassium. It was noticed on exam her neck appeared full which was likely due to her IV fluids. Fluids were discontinued at that time and she denied any shortness of breath, sore throat, difficulty breathing, rash, or hives. She stated she would like to be discharged home as she has returned her baseline. At discharge she was given prescription for Sabine-Colace, Protonix, and Zofran as below to assist with her symptoms. She was encouraged to follow- up with her PCP within one week. A repeat BMP was ordered for outpatient evaluation upon discharge. Pt Condition on Discharge: Stable Discharge Disposition: Discharge Home Discharge Instructions DIET: Follow Instructions for: As Tolerated, No Restrictions, Full Liquid Diet Additional Diet Instructions: Patient at time of discharge undergoing full liquid diet trial. Medically recommend progression from full to regular diet as tolerated. Activities you can perform: Regular-No Restrictions Follow up Referrals: PCP Follow-up - 1 Week New Orders: BASIC METABOLIC PROF - 1 Week New Medications: Omeprazole (Omeprazole) 40 Mg Cap 40 MG PO DAILY #30 Ref 0 CAP Ondansetron Odt (Ondansetron Odt) 4 Mg Tab 4 MG SL Q8HR PRN Nausea/Vomiting #30 Ref 0 TAB Sennosides-Docusate Sodium (Senna Plus 8.6-50 mg) 1 Tab Tab 2 TAB PO BID #120 TAB Continued Medications: Amlodipine (Amlodipine) 10 Mg Tab 10 MG PO DAILY Blood Pressure Management #30 Ref 2 TAB Ulises Manzano MD R1 Sep 04, 2016 15:02
== END 2016-09-04 17:28 | disposition home or self-care (01) | DRG 389 ==
LOC: NEPE 14:52 → NEDA 17:13 → N07A 18:57
PROVIDERS: ADMIT Family Medicine; ATTEND Family Medicine
DX: K56.5 Intestinal adhesions [bands] with obstruction (postinfection) (principal); K92.1 Melena; N17.9 Acute kidney failure, unspecified; I16.0 Hypertensive urgency; E87.6 Hypokalemia; Z90.49 Acquired absence of other specified parts of digestive tract; F17.210 Nicotine dependence, cigarettes, uncomplicated; I10 Essential (primary) hypertension; T46.1X6A Underdosing of calcium-channel blockers, initial encounter; Z91.128 Patient's intentional underdosing of medication regimen for other reason; K59.00 Constipation, unspecified
CPT/HCPCS: 74000; 74177; 80048; 80053; 81001; 83605; 83690; 85014; 85018; 85025; 85027; 85610; 85730; 86850; 86900; 86901; 96361; 96374; 96375; C9113; J0360; J1170; J2270; J2405; J2765; J3480; J7030; Q9967

== ENCOUNTER 2016-12-12 18:41 | Emergency (ER) | payer BC ==
[~2016-12-12] VITALS: Ht 170.2 cm; Wt 95.0 kg
[~2016-12-12 18:41] MED LIST changes: -MOBI15TA PO; +OMEP40CA2 PO; +ONDA4TAB7 SL; -ROBA750T PO; +SENN1TAB PO; -ULTR50TA5 PO
[2016-12-12] MEDS ORDERED: IOHEXOL 350 MG/ML 10 ML VIAL (for RAD DIAG) IVCONTRAST ONE (18:42)
[2016-12-12 18:44] VITALS: BP 213/124; PULSE 76; RESP 20; TEMP 97.8; O2SAT 99
[2016-12-12 19:10] VITALS: BP 200/112; PULSE 73; RESP 18; TEMP 98.2; O2SAT 100
[2016-12-12] MEDS ORDERED: hydrALAZINE HCL 20 MG/ML VIAL IV PUSH ONE (19:30)
[2016-12-12] MEDS ORDERED: KETOROLAC TROMETHAMINE 30 MG/ML (IVP) VIAL IV PUSH ONE (19:30)
[2016-12-12] MEDS ORDERED: SODIUM CHLORIDE 0.9% FLUSH 10 ML FLUSH IVF PRN (19:30)
[2016-12-12 19:47] VITALS: O2SAT 99
--- NOTE | 2016-12-12 19:50 | PD ---
HPI Chief Complaint: Medical Clearance Time Seen by Provider: 19:18 Travel History International Travel<30 days: No Contact w/Intl Traveler<30days: No Traveled to known affect area: No History of Present Illness HPI Patient is a 41-year-old female presenting to the emergency department for evaluation of chest wall pain. Pain started 2-3 days ago, it is worse with movement. Has not taken any medications to alleviate the pain. Patient is concerned because she's had a history of a spontaneous pneumothorax in 2011 and then 2012. She denies any cough, fever, chills. She states that occasionally she feels short of breath because it hurts to take a deep breath. Additionally patient has a history of hypertension and is out of her amlodipine. She was previously on 10 mg daily. She has no primary care provider at this time. Patient denies any chest pain. She reports the pain as a 6 out of 10 and describes it as sore and tight. PFSH Past Medical History Anxiety: Yes Heart Rhythm Problems: No Cardiac Catheterization: No Cardiovascular Problems: No High Cholesterol: No Congestive Heart Failure: No Cerebrovascular Accident: No Diabetes: No Diminished Hearing: No Endocrine: No Gout: Yes Genitourinary: No Headaches: No Heparin Induced Thrombocytopen: No Hypertension: Yes Immune Disorder: No Medical other: Yes (spontaneous pneumothorax) Neurologic: No Reproductive: No Respiratory: No Immunizations Current: Yes Migraines: No Seizures: No ?: Not Past Surgical History Abdominal Surgery: Yes (colon resection, polyp removal) Cardiac Surgery: No Section: Yes Coronary Artery Bypass Graft: No Ear Surgery: No Endocrine Surgery: No Eye Surgery: No Genitourinary Surgery: No Hysterectomy: Yes Neurologic Surgery: No Oral Surgery: No Thoracic Surgery: Yes Other Surgery: Yes (rectal polyps removed) Social History Alcohol Use: Yes (OCC) Tobacco Use: Yes (OCC) Substance Use: No Allergies-Medications (Allergen,Severity, Reaction): Coded Allergies: codeine (Unverified Allergy, Unknown, 12/12/16) Reported Meds & Prescriptions Reported Meds & Active Scripts Active Amlodipine (Amlodipine Besylate) 10 Mg Tab 10 Mg PO DAILY Review of Systems Except as stated in HPI: all other systems reviewed are Neg General / Constitutional: No: Fever HENT: No: Headaches Cardiovascular: No: Chest Pain or Discomfort, Palpitations Respiratory: Positive: Shortness of Breath, Pleuritic Pain, No: Cough, Wheezing Gastrointestinal: No: Nausea, Vomiting, Abdominal Pain Musculoskeletal: Positive: Myalgias Physical Exam Narrative GENERAL: Well-developed, well-nourished, alert female. Resting comfortably in no acute distress. SKIN: Warm and dry. HEAD: Atraumatic. Normocephalic. EYES: Pupils equal and round. No scleral icterus. No injection or drainage. ENT: No nasal bleeding or discharge. Mucous membranes pink and moist. NECK: Trachea midline. No JVD. CARDIOVASCULAR: Regular rate and rhythm. RESPIRATORY: No accessory muscle use. Clear to auscultation. Breath sounds diminished in right lower lung. No wheezes, rhonchi, rales noted. GASTROINTESTINAL: Abdomen soft, non-tender, nondistended. Hepatic and splenic margins not palpable. MUSCULOSKELETAL: Extremities without clubbing, cyanosis, or edema. No obvious deformities. Tenderness to palpation on right lateral chest wall, no crepitus noted, no flail chest noted. NEUROLOGICAL: Awake and alert. No obvious cranial nerve deficits. Motor grossly within normal limits. Five out of 5 muscle strength in the arms and legs. Normal speech. PSYCHIATRIC: Appropriate mood and affect; insight and judgment normal. Data Data Last Documented VS Vital Signs Date Time Temp Pulse Resp B/P (MAP) Pulse Ox O2 Delivery O2 Flow Rate FiO2 12/12/16 21:38 12/12/16 19:47 99 Room Air 12/12/16 19:10 98.2 73 18 Orders Orders Chest, Pa & Lat (12/12/16 ) Basic Metabolic Panel (Bmp) (12/12/16 19:26) Complete Blood Count With Diff (12/12/16 19:26) Ecg Monitoring (12/12/16 19:26) Iv Access Insert/Monitor (12/12/16 19:26) Oximetry (12/12/16 19:26) Sodium Chloride 0.9% Flush (Ns Flush) (12/12/16 19:30) Ct Pulmonary Angiogram (12/12/16 19:26) Ketorolac Inj (Toradol Inj) (12/12/16 19:30) Hydralazine Inj (Apresoline Inj) (12/12/16 19:30) Iohexol 350 Inj (Omnipaque 350 Inj) (12/12/16 18:42) Tramadol (Ultram) (12/12/16 21:45) Labs Laboratory Tests Test 12/12/16 19:45 White Blood Count 4.5 TH/MM3 Red Blood Count 3.91 MIL/MM3 Hemoglobin 11.7 GM/DL Hematocrit 35.7 % Mean Corpuscular Volume 91.4 FL Mean Corpuscular Hemoglobin 30.0 PG Mean Corpuscular Hemoglobin Concent 32.8 % Red Cell Distribution Width 14.0 % Platelet Count 159 TH/MM3 Mean Platelet Volume 11.5 FL Neutrophils (%) (Auto) 34.8 % Lymphocytes (%) (Auto) 54.3 % Monocytes (%) (Auto) 4.9 % Eosinophils (%) (Auto) 5.5 % Basophils (%) (Auto) 0.5 % Neutrophils # (Auto) 1.6 TH/MM3 Lymphocytes # (Auto) 2.4 TH/MM3 Monocytes # (Auto) 0.2 TH/MM3 Eosinophils # (Auto) 0.2 TH/MM3 Basophils # (Auto) 0.0 TH/MM3 CBC Comment DIFF FINAL Differential Comment Blood Urea Nitrogen 14 MG/DL Creatinine 1.13 MG/DL Random Glucose 77 MG/DL Calcium Level 9.1 MG/DL Sodium Level 140 MEQ/L Potassium Level 3.6 MEQ/L Chloride Level 109 MEQ/L Carbon Dioxide Level 26.2 MEQ/L Anion Gap 5 MEQ/L Estimat Glomerular Filtration Rate 65 ML/MIN MDM Medical Decision Making Medical Screen Exam Complete: Yes Emergency Medical Condition: Yes Medical Record Reviewed: Yes Interpretation(s) Vital Signs Date Time Temp Pulse Resp B/P (MAP) Pulse Ox O2 Delivery O2 Flow Rate FiO2 12/12/16 19:10 98.2 73 18 200/112 (141) 100 12/12/16 18:44 97.8 76 20 213/124 (153) 99 Room Air Differential Diagnosis Pneumothorax versus pneumonia versus costochondritis versus pulmonary embolism versus other Narrative Course Patient is a 41-year-old female that presented to emergency for evaluation of right lateral chest wall pain. Patient has a history of spontaneous pneumothorax and is concerned that this could be the case again. Blood pressure elevated on arrival, she has a history of hypertension and has not been on amlodipine and 4 months. Patient does not currently have a primary care provider. Labs and imaging ordered and pending, hydralazine ordered for blood pressure management. IV access established, patient placed on telemetry monitoring continuous pulse oximetry. Care of patient transferred to Dr. Zimmerman who will determine patient's disposition. Scripts Amlodipine (Amlodipine) 10 Mg Tab 10 MG PO DAILY for Blood Pressure Management, #30 TAB 0 Refills Prov: Jun Zimmerman MD 12/12/16 Mariel Thompson Dec 12, 2016 19:50
[2016-12-12 20:05] LABS: AUTOMATED NEUTROPHIL # 1.6 TH/MM3 (1.8-7.7); BASOPHIL % 0.5 % (0.0-2.0); EOSINOPHIL # 0.2 TH/MM3 (0-0.4); EOSINOPHIL % 5.5 % (0.0-4.0); HEMATOCRIT 35.7 % (35.0-46.0); HEMO FLAGS DIFF FINAL; LYMPH % 54.3 % (9.0-44.0); LYMPHOCYTE # 2.4 TH/MM3 (1.0-4.8); MEAN CELL VOLUME 91.4 FL (80.0-100.0); MEAN CORPUSCULAR HGB CONC 32.8 % (32.0-36.0); MONO % 4.9 % (0.0-8.0); NEUT % 34.8 % (16.0-70.0); PLATELET COUNT 159 TH/MM3 (150-450); RED BLOOD COUNT 3.91 MIL/MM3 (4.00-5.30); WHITE BLOOD COUNT 4.5 TH/MM3 (4.0-11.0)
[2016-12-12 20:25] LABS: BICARBONATE 26.2 MEQ/L (21.0-32.0); POTASSIUM 3.6 MEQ/L (3.5-5.1)
[2016-12-12 20:32] VITALS: BP 184/103
--- NOTE | 2016-12-12 21:13 | RADRPT ---
EXAM DATE/TIME: 12/12/2016 20:10 [facility] COMPARISON: No previous studies available for comparison. INDICATIONS : Right side chest pain, short of breath. MEDICAL HISTORY : Hypertension. History spontaneous right pneumothorax SURGICAL HISTORY : Hysterectomy. RT lung surgery ENCOUNTER: Initial ACUITY: 3 days PAIN SCORE: 8/10 LOCATION: Right chest FINDINGS: There is blunting of the right costophrenic recess consistent with tiny pleural effusion and/or pleur al thickening. There is no pneumothorax. The heart is normal. The left lung is clear. CONCLUSION: 1. Blunting of the right costophrenic recess consistent with tiny pleural effusion and/or pleural thi ckening. 2. No evidence of pneumothorax. Jun Betancourt MD on December 12, 2016 at 21:06 Board Certified Radiologist. This report was verified electronically.
--- NOTE | 2016-12-12 21:33 | RADRPT ---
EXAM DATE/TIME: 12/12/2016 21:07 [facility] COMPARISON: CT PULMONARY ANGIOGRAM, June 24, 2016, 1:13. INDICATIONS : Patient complains of rib and chest pain, evaluate for embolus. IV CONTRAST: 75 cc Omnipaque 350 (iohexol) IV RADIATION DOSE: 11.77 CTDIvol (mGy) MEDICAL HISTORY : Hypertension. SURGICAL HISTORY : Hysterectomy. ENCOUNTER: Initial ACUITY: 2 days PAIN SCALE: 8/10 LOCATION: Right chest TECHNIQUE: Volumetric scanning of the chest was performed using a pulmonary embolism protocol MIP images were re constructed. Using automated exposure control and adjustment of the mA and/or kV according to patien t size, radiation dose was kept as low as reasonably achievable to obtain optimal diagnostic quality images. DICOM format image data is available electronically for review and comparison. Follow-up recommendations for detected pulmonary nodules are based at a minimum on nodule size and pa tient risk factors according to Fleischner Society Guidelines. FINDINGS: PULMONARY ARTERIES: No filling defects are seen in the pulmonary arteries through the segmental level. LUNGS: There is no consolidation or pneumothorax . No concerning pulmonary nodule is visualized. Scattered fibrotic scarring is noted bilaterally. PLEURAE: Stable nodular hyperdense pleural densities are again noted on the right. No pleural effusion is note d. MEDIASTINUM: There is good visualization of the great vessels of the middle mediastinum. No evidence of mediastin al or hilar adenopathy/mass. Coronary artery calcifications. MUSCULOSKELETAL: Within normal limits for patient age. MISCELLANEOUS: The visualized upper abdominal organs demonstrate no acute abnormality. CONCLUSION: 1. No evidence of pulmonary embolism. 2. Stable nodular hyperdense pleural densities on the right. 3. Scattered fibrotic scarring bilaterally. 4. Coronary artery calcifications. Jun Betancourt MD on December 12, 2016 at 21:27 Board Certified Radiologist. This report was verified electronically.
[2016-12-12] MEDS ORDERED: AMLO10TA2 PO (21:37)
--- NOTE | 2016-12-12 21:37 | PD ---
Data Data Last Documented VS Vital Signs Date Time Temp Pulse Resp B/P (MAP) Pulse Ox O2 Delivery O2 Flow Rate FiO2 12/12/16 21:38 12/12/16 19:47 99 Room Air 12/12/16 19:10 98.2 73 18 Orders Orders Chest, Pa & Lat (12/12/16 ) Basic Metabolic Panel (Bmp) (12/12/16 19:26) Complete Blood Count With Diff (12/12/16 19:26) Ecg Monitoring (12/12/16 19:26) Iv Access Insert/Monitor (12/12/16 19:26) Oximetry (12/12/16 19:26) Sodium Chloride 0.9% Flush (Ns Flush) (12/12/16 19:30) Ct Pulmonary Angiogram (12/12/16 19:26) Ketorolac Inj (Toradol Inj) (12/12/16 19:30) Hydralazine Inj (Apresoline Inj) (12/12/16 19:30) Iohexol 350 Inj (Omnipaque 350 Inj) (12/12/16 18:42) Tramadol (Ultram) (12/12/16 21:45) Labs Laboratory Tests Test 12/12/16 19:45 White Blood Count 4.5 TH/MM3 Red Blood Count 3.91 MIL/MM3 Hemoglobin 11.7 GM/DL Hematocrit 35.7 % Mean Corpuscular Volume 91.4 FL Mean Corpuscular Hemoglobin 30.0 PG Mean Corpuscular Hemoglobin Concent 32.8 % Red Cell Distribution Width 14.0 % Platelet Count 159 TH/MM3 Mean Platelet Volume 11.5 FL Neutrophils (%) (Auto) 34.8 % Lymphocytes (%) (Auto) 54.3 % Monocytes (%) (Auto) 4.9 % Eosinophils (%) (Auto) 5.5 % Basophils (%) (Auto) 0.5 % Neutrophils # (Auto) 1.6 TH/MM3 Lymphocytes # (Auto) 2.4 TH/MM3 Monocytes # (Auto) 0.2 TH/MM3 Eosinophils # (Auto) 0.2 TH/MM3 Basophils # (Auto) 0.0 TH/MM3 CBC Comment DIFF FINAL Differential Comment Blood Urea Nitrogen 14 MG/DL Creatinine 1.13 MG/DL Random Glucose 77 MG/DL Calcium Level 9.1 MG/DL Sodium Level 140 MEQ/L Potassium Level 3.6 MEQ/L Chloride Level 109 MEQ/L Carbon Dioxide Level 26.2 MEQ/L Anion Gap 5 MEQ/L Estimat Glomerular Filtration Rate 65 ML/MIN MDM Supervised Visit with [facility]KA: Yes Narrative Course Patient care assumed from Mariel KING at 2100. Patient is a 41-year-old female with recurrent right mid axillary chest pain secondary to a prior well- healed tube thoracotomy site which was done in the distant past for spontaneous pneumothorax. Patient initial workup EKG troponin CT PE protocol negative. Patient revisited and still having some pain but appears very comfortable in no distress saturating well in no increased respiratory work of breathing.. Was given a dose of Ultram. Recommended following up there is a [facility] for a checkup or her primary care physician. She stable for discharge. Diagnosis Primary Impression: Atypical chest pain Additional Impression: Elevated blood pressure reading Referrals: [facility] Additional Instruction: Follow-up with the [facility] or your primary care physician. Med/Other Pt SpecificInfo: Prescription(s) given Scripts Amlodipine (Amlodipine) 10 Mg Tab 10 MG PO DAILY for Blood Pressure Management, #30 TAB 0 Refills Prov: Jun Zimmerman MD 12/12/16 Disposition: 01 DISCHARGE HOME Condition: Stable Jun Zimmerman MD Dec 12, 2016 21:37
[2016-12-12] MEDS ORDERED: traMADol HCL 50 MG TAB PO ONE (21:45)
== END 2016-12-12 21:58 | disposition home or self-care (01) ==
LOC: NEPD 18:41
DX: R07.89 Other chest pain (principal); R06.02 Shortness of breath; I10 Essential (primary) hypertension; Z72.0 Tobacco use
CPT/HCPCS: 71020; 71275; 80048; 85025; 96374; 96375; 99285; J0360; J1885; Q9967

== ENCOUNTER 2017-04-16 20:11 | Observation (INO) | payer SELFPAY, BC ==
[2017-04-17 00:26] LABS: AUTOMATED NEUTROPHIL # 3.4 TH/MM3 (1.8-7.7); BASOPHIL # 0.1 TH/MM3 (0-0.2); BASOPHIL % 1.1 % (0.0-2.0); EOSINOPHIL # 0.1 TH/MM3 (0-0.4); EOSINOPHIL % 1.7 % (0.0-4.0); HEMATOCRIT 39.3 % (35.0-46.0); HEMO FLAGS DIFF FINAL; HEMOGLOBIN 13.2 GM/DL (11.6-15.3); LYMPH % 35.7 % (9.0-44.0); LYMPHOCYTE # 2.3 TH/MM3 (1.0-4.8); MEAN CELL VOLUME 92.2 FL (80.0-100.0); MEAN CORPUSCULAR HGB CONC 33.6 % (32.0-36.0); MEAN PLATELET VOLUME 10.6 FL (7.0-11.0); MONO % 7.4 % (0.0-8.0); MONOCYTE # 0.5 TH/MM3 (0-0.9); NEUT % 54.1 % (16.0-70.0); PLATELET COUNT 235 TH/MM3 (150-450); RED BLOOD COUNT 4.26 MIL/MM3 (4.00-5.30); RED CELL DISTRIBUTION WIDTH 14.4 % (11.6-17.2); WHITE BLOOD COUNT 6.4 TH/MM3 (4.0-11.0)
[2017-04-17] MEDS: DIATRIZOATE MEGLUM/DIATRIZOATE SOD 9 ML CUP (00:28)
[2017-04-17 00:43] LABS: ALT (GPT) 44 U/L (10-53)
[2017-04-17 00:45] LABS: ALKALINE PHOSPHATASE 121 U/L (45-117); TOTAL BILIRUBIN ADULT 0.8 MG/DL (0.2-1.0); TOTAL PROTEIN 8.8 GM/DL (6.4-8.2)
[2017-04-17 00:46] LABS: ALBUMIN 4.3 GM/DL (3.4-5.0); ANION GAP 6 MEQ/L (5-15); AST (GOT) 59 U/L (15-37); BICARBONATE 25.2 MEQ/L (21.0-32.0); BLOOD UREA NITROGEN 20 MG/DL (7-18); CALCIUM 9.9 MG/DL (8.5-10.1); CHLORIDE 104 MEQ/L (98-107); CREATININE 1.16 MG/DL (0.50-1.00); GLOMERULAR FILTRATION RATE 63 ML/MIN (>89); GLUCOSE,RANDOM 97 MG/DL (74-106); LIPASE 869 U/L (73-393); POTASSIUM 4.1 MEQ/L (3.5-5.1); SODIUM (NA) 135 MEQ/L (136-145)
[2017-04-17] MEDS: IOHEXOL 350 MG/ML 10 ML VIAL (for RAD DIAG) IVCONTRAST (02:00)
[2017-04-17 02:44] LABS: BACTERIA, URINE RARE /hpf; BILIRUBIN, URINE NEG (NEG); BLOOD, URINE NEG (NEG); GLUCOSE,URINE NEG (NEG); KETONE, URINE NEG (NEG); MUCUS URINE FEW /lpf (OCC); NITRITE,URINE NEG (NEG); PH, URINE 5.5 (5.0-8.5); SQUAMOUS EPITHELIAL CELL URINE 3 /hpf (0-5); URINE COLOR LIGHT-YELLOW (YELLW/STRAW); URINE LEUKOCYTE ESTERASE MOD (NEG)
[2017-04-17 02:45] LABS: COMMENT (UR) CULT NOT INDICATED; CULTURE IF INDICATED CULT NOT INDICATED
[2017-04-17] MEDS: SODIUM CHLOR 0.9% 1000 ML INJ 1,000 ML IV ×4 (03:07→15:37)
[2017-04-17] MEDS ORDERED: MAGNESIUM HYDROXIDE SUSP 30 ML CUP PO (03:15)
[2017-04-17] MEDS ORDERED: BISACODYL 10 MG SUPP RECTAL (03:15)
[2017-04-17] MEDS ORDERED: LACTULOSE SYRUP 20 GM/30 ML CUP PO (03:15)
[2017-04-17] MEDS ORDERED: SENNOSIDES 8.6 MG TAB PO (03:15)
[2017-04-17] MEDS ORDERED: SODIUM CHLORIDE 0.9% FLUSH 10 ML FLUSH IV FLUSH (03:15)
[2017-04-17] MEDS ORDERED: NALOXONE HCL 0.4 MG/ML AMP IV PUSH (03:15)
[2017-04-17] MEDS: MORPHINE SULFATE 2 MG/ML INJ IV PUSH ×3 (08:17→13:06)
[2017-04-17] MEDS: DOCUSATE SODIUM 50 MG/SENNA 8.6 MG TAB PO ×2 (09:00→20:15)
[2017-04-17] MEDS: SODIUM CHLORIDE 0.9% FLUSH 10 ML FLUSH IV FLUSH ×2 (09:14→20:14)
[2017-04-18] MEDS: SODIUM CHLOR 0.9% 1000 ML INJ 1,000 ML IV (00:14)
[2017-04-18] MEDS: MORPHINE SULFATE 2 MG/ML INJ IV PUSH (02:48)
[2017-04-18] MEDS: ONDANSETRON HCL 4 MG/2 ML VIAL IVP (02:48)
[2017-04-18 06:52] LABS: AUTOMATED NEUTROPHIL # 2.1 TH/MM3 (1.8-7.7); BASOPHIL % 0.8 % (0.0-2.0); EOSINOPHIL # 0.2 TH/MM3 (0-0.4); EOSINOPHIL % 3.5 % (0.0-4.0); HEMATOCRIT 36.4 % (35.0-46.0); HEMO FLAGS DIFF FINAL; HEMOGLOBIN 12.2 GM/DL (11.6-15.3); LYMPH % 47.9 % (9.0-44.0); LYMPHOCYTE # 2.4 TH/MM3 (1.0-4.8); MEAN CELL VOLUME 92.1 FL (80.0-100.0); MEAN CORPUSCULAR HEMOGLOBIN 30.8 PG (27.0-34.0); MEAN CORPUSCULAR HGB CONC 33.4 % (32.0-36.0); MEAN PLATELET VOLUME 10.1 FL (7.0-11.0); MONO % 5.2 % (0.0-8.0); MONOCYTE # 0.3 TH/MM3 (0-0.9); NEUT % 42.6 % (16.0-70.0); PLATELET COUNT 187 TH/MM3 (150-450); RED BLOOD COUNT 3.96 MIL/MM3 (4.00-5.30); RED CELL DISTRIBUTION WIDTH 14.1 % (11.6-17.2); WHITE BLOOD COUNT 4.9 TH/MM3 (4.0-11.0)
[2017-04-18 07:33] LABS: ALBUMIN 3.9 GM/DL (3.4-5.0); ALKALINE PHOSPHATASE 110 U/L (45-117); ALT (GPT) 33 U/L (10-53); ANION GAP 5 MEQ/L (5-15); AST (GOT) 24 U/L (15-37); BICARBONATE 28.2 MEQ/L (21.0-32.0); BLOOD UREA NITROGEN 8 MG/DL (7-18); CHLORIDE 108 MEQ/L (98-107); CREATININE 0.82 MG/DL (0.50-1.00); GLOMERULAR FILTRATION RATE 93 ML/MIN (>89); GLUCOSE,RANDOM 89 MG/DL (74-106); LIPASE 246 U/L (73-393); POTASSIUM 3.5 MEQ/L (3.5-5.1); SODIUM (NA) 141 MEQ/L (136-145); TOTAL BILIRUBIN ADULT 0.6 MG/DL (0.2-1.0); TOTAL PROTEIN 7.6 GM/DL (6.4-8.2); TRIGLYCERIDES 89 MG/DL (42-150)
[2017-04-18] MEDS ORDERED: ACETAMINOPHEN 325 MG TAB PO (09:30)
[2017-04-18] MEDS ORDERED: MORPHINE SULFATE 2 MG/ML INJ IV PUSH (09:30)
[2017-04-18] MEDS ORDERED: ACETAMINOPHEN/HYDROcodone 325 MG/5 MG TAB PO (09:30)
[2017-04-18] MEDS ORDERED: ACETAMINOPHEN/HYDROcodone 325 MG/7.5 MG TAB PO (09:30)
[2017-04-18] MEDS: DOCUSATE SODIUM 50 MG/SENNA 8.6 MG TAB PO (09:40)
[2017-04-18] MEDS: SODIUM CHLORIDE 0.9% FLUSH 10 ML FLUSH IV FLUSH (09:40)
[2017-04-18] MEDS: POTASSIUM CHLORIDE 20 MEQ CONTROLLED RELEASE TAB PO (09:40)
== END 2017-04-18 14:22 | disposition home or self-care (01) ==
LOC: NEPD 20:11 → NEDA 04-17 03:16 → NEPGCP 04-17 14:32
DX: K85.90 Acute pancreatitis without necrosis or infection, unspecified (principal); N17.9 Acute kidney failure, unspecified; I10 Essential (primary) hypertension; E86.0 Dehydration; R11.2 Nausea with vomiting, unspecified; R19.7 Diarrhea, unspecified; F41.9 Anxiety disorder, unspecified; M10.9 Gout, unspecified; Z72.0 Tobacco use
CPT/HCPCS: 74177; 80053; 81001; 82948; 83690; 84478; 84703; 85025; 87804; 87804-59; 96361; 96374; 96375; 96376; 99285

== ENCOUNTER 2017-06-04 20:41 | Emergency (ER) | payer SELFPAY ==
[~2017-06-04 20:41] MED LIST changes: +HYDR-3516 PO; -OMEP40CA2 PO; -ONDA4TAB7 SL; -SENN1TAB PO
[2017-06-04 20:55] VITALS: BP 183/106; PULSE 81; RESP 22; TEMP 99; O2SAT 99
[2017-06-04 21:35] VITALS: BP 172/96; PULSE 70; RESP 13; O2SAT 99
[2017-06-04 21:51] LABS: AUTOMATED NEUTROPHIL # 2.3 TH/MM3 (1.8-7.7); BASOPHIL % 0.5 % (0.0-2.0); EOSINOPHIL # 0.2 TH/MM3 (0-0.4); EOSINOPHIL % 3.1 % (0.0-4.0); HEMATOCRIT 36.2 % (35.0-46.0); HEMOGLOBIN 11.9 GM/DL (11.6-15.3); LYMPH % 46.6 % (9.0-44.0); LYMPHOCYTE # 2.5 TH/MM3 (1.0-4.8); MEAN CELL VOLUME 91.4 FL (80.0-100.0); MEAN CORPUSCULAR HEMOGLOBIN 29.9 PG (27.0-34.0); MEAN CORPUSCULAR HGB CONC 32.7 % (32.0-36.0); MEAN PLATELET VOLUME 10.4 FL (7.0-11.0); MONO % 7.5 % (0.0-8.0); MONOCYTE # 0.4 TH/MM3 (0-0.9); NEUT % 42.3 % (16.0-70.0); PLATELET COUNT 217 TH/MM3 (150-450); RED BLOOD COUNT 3.96 MIL/MM3 (4.00-5.30); RED CELL DISTRIBUTION WIDTH 13.9 % (11.6-17.2); WHITE BLOOD COUNT 5.5 TH/MM3 (4.0-11.0)
[2017-06-04 21:56] LABS: BACTERIA, URINE RARE /hpf; BILIRUBIN, URINE NEG (NEG); BLOOD, URINE NEG (NEG); GLUCOSE,URINE NEG (NEG); KETONE, URINE NEG (NEG); NITRITE,URINE NEG (NEG); SQUAMOUS EPITHELIAL CELL URINE 88 /hpf (0-5); URINE COLOR LIGHT-YELLOW (YELLW/STRAW); URINE LEUKOCYTE ESTERASE TRACE (NEG)
[2017-06-04 22:00] LABS: ALBUMIN 3.9 GM/DL (3.4-5.0); AST (GOT) 23 U/L (15-37); BICARBONATE 22.7 MEQ/L (21.0-32.0); BLOOD UREA NITROGEN 12 MG/DL (7-18); CALCIUM 9.3 MG/DL (8.5-10.1); CHLORIDE 108 MEQ/L (98-107); CREATININE 1.05 MG/DL (0.50-1.00); GLOMERULAR FILTRATION RATE 70 ML/MIN (>89); GLUCOSE,RANDOM 80 MG/DL (74-106); SODIUM (NA) 141 MEQ/L (136-145)
[2017-06-04 22:01] LABS: ALT (GPT) 31 U/L (10-53)
[2017-06-04] MEDS ORDERED: SODIUM CHLOR 0.9% 1000 ML INJ 1,000 ML IV SCH (22:01)
[2017-06-04 22:03] LABS: ALKALINE PHOSPHATASE 106 U/L (45-117); TOTAL BILIRUBIN ADULT 0.3 MG/DL (0.2-1.0); TOTAL PROTEIN 7.5 GM/DL (6.4-8.2)
--- NOTE | 2017-06-04 22:07 | PD ---
HPI Chief Complaint: Abdominal Pain Time Seen by Provider: 21:32 Travel History International Travel<30 days: No Contact w/Intl Traveler<30days: No Traveled to known affect area: No History of Present Illness HPI 42-year-old female with PMH of endometriosis, bowel resection, hysterectomy, hypertension presents to the ED for evaluation of 1 week history of intermittent abdominal pain, worsening over the last few days. She also complains of bloating and constipation, states that she is only passed a few episodes of watery diarrhea after taking milk of magnesia. She endorses nonbloody, nonbilious nausea and vomiting and early satiety. She denies fever, chills, chest pain, shortness of breath, dysuria, back pain. She states that she has a left ovary because it was "too plastered in" to remove. Surgery was performed in [place]. PFSH Past Medical History Blood Disorders: No Anxiety: Yes Heart Rhythm Problems: No Cancer: No Cardiac Catheterization: No Cardiovascular Problems: Yes (HTN) High Cholesterol: No Chest Pain: No Congestive Heart Failure: No Cerebrovascular Accident: No Diabetes: No Diminished Hearing: No Endocrine: No Gout: Yes Genitourinary: No Headaches: No Heparin Induced Thrombocytopen: No Hypertension: Yes Immune Disorder: No Musculoskeletal: No Neurologic: No Psychiatric: No Reproductive: No Respiratory: No Immunizations Current: Yes Migraines: No Seizures: No Thyroid Disease: No Influenza Vaccination: No ?: Not Past Surgical History Abdominal Surgery: Yes (colon resection, polyp removal) Cardiac Surgery: No Section: Yes Coronary Artery Bypass Graft: No Ear Surgery: No Endocrine Surgery: No Eye Surgery: No Genitourinary Surgery: No Gynecologic Surgery: Yes (, hysterectomy) Hysterectomy: Yes Neurologic Surgery: No Oral Surgery: No Thoracic Surgery: Yes Other Surgery: Yes (rectal polyps removed) Social History Alcohol Use: Yes (OCC) Tobacco Use: Yes (OCC) Substance Use: No Allergies-Medications (Allergen,Severity, Reaction): Coded Allergies: codeine (Unverified Allergy, Unknown, 04/16/17) Reported Meds & Prescriptions Reported Meds & Active Scripts Active Ultram (Tramadol HCl) 50 Mg Tab 50 Mg PO Q6H PRN Zofran Odt (Ondansetron Odt) 4 Mg Tab 4 Mg SL Q6HR PRN Hydrocodone-Acetamin 5-325 mg (Hydrocodone/Acetaminophen) 5 Mg-325 Mg Tablet 1- 2 Tab PO Q6HR PRN Amlodipine (Amlodipine Besylate) 10 Mg Tab 10 Mg PO DAILY Review of Systems Except as stated in HPI: all other systems reviewed are Neg Physical Exam Narrative GENERAL: Well-nourished, well-developed stoic, nontoxic appearing - [place] female in no acute distress. SKIN: Focused skin assessment warm/dry. HEAD: Normocephalic. EYES: No scleral icterus. No injection or drainage. NECK: Supple, trachea midline. No JVD or lymphadenopathy. CARDIOVASCULAR: Regular rate and rhythm without murmurs, gallops, or rubs. RESPIRATORY: Breath sounds clear and equal bilaterally. No accessory muscle use. GASTROINTESTINAL: Abdomen soft, nondistended. Tender in bilateral lower quadrants of the abdomen. Active bowel sounds. MUSCULOSKELETAL: No cyanosis, or edema. BACK: Nontender without obvious deformity. No CVA tenderness. Data Data Last Documented VS Vital Signs Date Time Temp Pulse Resp B/P (MAP) Pulse Ox O2 Delivery O2 Flow Rate FiO2 06/05/17 00:50 06/04/17 23:43 98.0 70 20 98 Room Air Orders Orders Complete Blood Count With Diff (06/04/17 20:58) Comprehensive Metabolic Panel (06/04/17 20:58) Lipase (06/04/17 20:58) Prothrombin Time / Inr (Pt) (06/04/17 20:58) Act Partial Throm Time (Ptt) (06/04/17 20:58) Urinalysis - C+S If Indicated (06/04/17 20:58) Ct Abd/Pel W Iv Contrast(Rout) (06/04/17 22:01) Iv Access Insert/Monitor (06/04/17 22:01) Ecg Monitoring (06/04/17 22:01) Oximetry (06/04/17 22:01) NPO (06/04/17 22:01) Morphine Inj (Morphine Inj) (06/04/17 22:15) Ondansetron Inj (Zofran Inj) (06/04/17 22:15) Sodium Chlor 0.9% 1000 Ml Inj (Ns 1000 M (06/04/17 22:01) Ed Urine Pregnancytest Poc (06/04/17 22:01) Iohexol 350 Inj (Omnipaque 350 Inj) (06/04/17 22:54) Ed Discharge Order (06/05/17 00:25) Labs Laboratory Tests Test 06/04/17 21:06 White Blood Count 5.5 TH/MM3 Red Blood Count 3.96 MIL/MM3 Hemoglobin 11.9 GM/DL Hematocrit 36.2 % Mean Corpuscular Volume 91.4 FL Mean Corpuscular Hemoglobin 29.9 PG Mean Corpuscular Hemoglobin Concent 32.7 % Red Cell Distribution Width 13.9 % Platelet Count 217 TH/MM3 Mean Platelet Volume 10.4 FL Neutrophils (%) (Auto) 42.3 % Lymphocytes (%) (Auto) 46.6 % Monocytes (%) (Auto) 7.5 % Eosinophils (%) (Auto) 3.1 % Basophils (%) (Auto) 0.5 % Neutrophils # (Auto) 2.3 TH/MM3 Lymphocytes # (Auto) 2.5 TH/MM3 Monocytes # (Auto) 0.4 TH/MM3 Eosinophils # (Auto) 0.2 TH/MM3 Basophils # (Auto) 0.0 TH/MM3 CBC Comment DIFF FINAL Differential Comment Prothrombin Time 10.0 SEC Prothromb Time International Ratio 1.0 RATIO Activated Partial Thromboplast Time 27.0 SEC Urine Color LIGHT-YELLOW Urine Turbidity CLOUDY Urine pH 6.0 Urine Specific [place] 1.012 Urine Protein NEG mg/dL Urine Glucose (UA) NEG mg/dL Urine Ketones NEG mg/dL Urine Occult Blood NEG Urine Nitrite NEG Urine Bilirubin NEG Urine Urobilinogen LESS THAN 2.0 MG/DL Urine Leukocyte Esterase TRACE Urine RBC 1 /hpf Urine WBC 4 /hpf Urine Squamous Epithelial Cells 88 /hpf Urine Bacteria RARE /hpf Microscopic Urinalysis Comment CULT NOT INDICATED Blood Urea Nitrogen 12 MG/DL Creatinine 1.05 MG/DL Random Glucose 80 MG/DL Total Protein 7.5 GM/DL Albumin 3.9 GM/DL Calcium Level 9.3 MG/DL Alkaline Phosphatase 106 U/L Aspartate Amino Transf (AST/SGOT) 23 U/L Alanine Aminotransferase (ALT/SGPT) 31 U/L Total Bilirubin 0.3 MG/DL Sodium Level 141 MEQ/L Potassium Level 3.7 MEQ/L Chloride Level 108 MEQ/L Carbon Dioxide Level 22.7 MEQ/L Anion Gap 10 MEQ/L Estimat Glomerular Filtration Rate 70 ML/MIN Lipase 110 U/L [facility] Medical Decision Making Medical Screen Exam Complete: Yes Emergency Medical Condition: Yes Differential Diagnosis Constipation versus bowel obstruction versus endometriosis versus other Narrative Course 42-year-old female with PMH of endometriosis, bowel resection, hysterectomy, hypertension presents to the ED for evaluation of 1 week history of intermittent abdominal pain, worsening over the last few days. She also complains of bloating and constipation, states that she is only passed a few episodes of watery diarrhea after taking milk of magnesia. She endorses nonbloody, nonbilious nausea and vomiting and early satiety. She states that she has a left ovary because it was "too plastered in" to remove. Surgery was performed in [place]. Vitals reviewed. Patient's hypertensive on presentation. On exam this is a an -[place] female in no acute distress. She has mild tenderness to palpation over the bilateral lower abdominal quadrants but the exam is otherwise unremarkable. IV was established. Patient was administered 4 mg Zofran, 4 mg morphine and 1 L normal saline. No concerning abnormalities of the CBC, CMP or UA. CT abdomen pending. The patient is signed out to Dr. Simpson at end of shift. Please see consult for disposition. Scripts Tramadol (Ultram) 50 Mg Tab 50 MG PO Q6H Y for PAIN, #14 TAB 0 Refills Prov: Gianluca Simpson MD 06/04/17 Ondansetron Odt (Zofran Odt) 4 Mg Tab 4 MG SL Q6HR Y for Nausea/Vomiting, #20 TAB 0 Refills Prov: Gianluca Simpson MD 06/04/17 Erma Acevedo Jun 04, 2017 22:07
[2017-06-04] MEDS ORDERED: MORPHINE SULFATE 4 MG/ML INJ IV PUSH ONE (22:15)
[2017-06-04] MEDS ORDERED: ONDANSETRON HCL 4 MG/2 ML VIAL IVP ONE (22:15)
[2017-06-04] MEDS ORDERED: IOHEXOL 350 MG/ML 10 ML VIAL (for RAD DIAG) IVCONTRAST ONE (22:54)
--- NOTE | 2017-06-04 23:12 | RADRPT ---
EXAM DATE/TIME: 06/04/2017 22:45 [facility] COMPARISON: CT ABDOMEN & PELVIS W CONTRAST, April 17, 2017, 1:45. INDICATIONS : Abdomen pain. IV CONTRAST: 100 cc Omnipaque 350 (iohexol) IV ORAL CONTRAST: No oral contrast ingested. RADIATION DOSE: 10.03 CTDIvol (mGy) MEDICAL HISTORY : Hypertension. SURGICAL HISTORY : Hysterectomy. Bowel resection. ENCOUNTER: Initial ACUITY: 2 weeks PAIN SCALE: 7/10 LOCATION: Bilateral abdomen TECHNIQUE: Volumetric scanning of the abdomen and pelvis was performed. Using automated exposure control and ad justment of the mA and/or kV according to patient size, radiation dose was kept as low as reasonably achievable to obtain optimal diagnostic quality images. DICOM format image data is available electro nically for review and comparison. FINDINGS: LOWER LUNGS: Calcified pleural plaques are seen involving the posterior right hemithorax. No infiltrates or effusi ons. LIVER: Homogeneous density without lesion. There is no dilation of the biliary tree. No calcified gallston es. SPLEEN: Normal size without lesion. PANCREAS: Within normal limits. KIDNEYS: Normal in size and shape. There is no mass, stone or hydronephrosis. ADRENAL GLANDS: Within normal limits. VASCULAR: There is no aortic aneurysm. BOWEL/MESENTERY: Surgical clips are seen associated with the cecum and adjacent small bowel loops and rectosigmoid lencho ction. The stomach, small bowel, and colon demonstrate no acute abnormality. There is no free intrap eritoneal air or fluid. ABDOMINAL WALL: Within normal limits. RETROPERITONEUM: There is no lymphadenopathy. BLADDER: No wall thickening or mass. REPRODUCTIVE: A 3.3 cm cyst is seen within the left adnexa. The uterus is surgically absent. INGUINAL: There is no lymphadenopathy or hernia. MUSCULOSKELETAL: Within normal limits for patient age. CONCLUSION: 1. No acute abnormality. 2. 3.3 cm left adnexal cyst likely ovarian in nature. 3. Calcified pleural plaque involving the right hemithorax likely postinflammatory in nature. This ca n be associated with asbestos exposure. Nick Monroy Jr., MD on June 04, 2017 at 23:06 Board Certified Radiologist. This report was verified electronically.
[2017-06-04 23:43] VITALS: BP 179/98; PULSE 70; RESP 20; TEMP 98; O2SAT 98
[2017-06-04] MEDS ORDERED: ZOFR4TAB3 SL (23:59)
[2017-06-04] MEDS ORDERED: TRAM50 PO (23:59)
--- NOTE | 2017-06-04 23:59 | PD ---
Physical Exam Narrative GENERAL: SKIN: Warm and dry. HEAD: Atraumatic. Normocephalic. EYES: Pupils equal and round. No scleral icterus. No injection or drainage. ENT: No nasal bleeding or discharge. Mucous membranes pink and moist. NECK: Trachea midline. No JVD. CARDIOVASCULAR: Regular rate and rhythm. RESPIRATORY: No accessory muscle use. Clear to auscultation. Breath sounds equal bilaterally. GASTROINTESTINAL: Abdomen soft, non-tender, nondistended. MUSCULOSKELETAL: Extremities without clubbing, cyanosis, or edema. No obvious deformities. NEUROLOGICAL: Awake and alert. No obvious cranial nerve deficits. Motor grossly within normal limits. Five out of 5 muscle strength in the arms and legs. Normal speech. PSYCHIATRIC: Appropriate mood and affect; insight and judgment normal. Data Data Last Documented VS Vital Signs Date Time Temp Pulse Resp B/P (MAP) Pulse Ox O2 Delivery O2 Flow Rate FiO2 06/04/17 23:43 98.0 70 20 179/98 (125) 98 Room Air Orders Orders Complete Blood Count With Diff (06/04/17 20:58) Comprehensive Metabolic Panel (06/04/17 20:58) Lipase (06/04/17 20:58) Prothrombin Time / Inr (Pt) (06/04/17 20:58) Act Partial Throm Time (Ptt) (06/04/17 20:58) Urinalysis - C+S If Indicated (06/04/17 20:58) Ct Abd/Pel W Iv Contrast(Rout) (06/04/17 22:01) Iv Access Insert/Monitor (06/04/17 22:01) Ecg Monitoring (06/04/17 22:01) Oximetry (06/04/17 22:01) NPO (06/04/17 22:01) Morphine Inj (Morphine Inj) (06/04/17 22:15) Ondansetron Inj (Zofran Inj) (06/04/17 22:15) Sodium Chlor 0.9% 1000 Ml Inj (Ns 1000 M (06/04/17 22:01) Ed Urine Pregnancytest Poc (06/04/17 22:01) Iohexol 350 Inj (Omnipaque 350 Inj) (06/04/17 22:54) Labs Laboratory Tests Test 06/04/17 21:06 White Blood Count 5.5 TH/MM3 Red Blood Count 3.96 MIL/MM3 Hemoglobin 11.9 GM/DL Hematocrit 36.2 % Mean Corpuscular Volume 91.4 FL Mean Corpuscular Hemoglobin 29.9 PG Mean Corpuscular Hemoglobin Concent 32.7 % Red Cell Distribution Width 13.9 % Platelet Count 217 TH/MM3 Mean Platelet Volume 10.4 FL Neutrophils (%) (Auto) 42.3 % Lymphocytes (%) (Auto) 46.6 % Monocytes (%) (Auto) 7.5 % Eosinophils (%) (Auto) 3.1 % Basophils (%) (Auto) 0.5 % Neutrophils # (Auto) 2.3 TH/MM3 Lymphocytes # (Auto) 2.5 TH/MM3 Monocytes # (Auto) 0.4 TH/MM3 Eosinophils # (Auto) 0.2 TH/MM3 Basophils # (Auto) 0.0 TH/MM3 CBC Comment DIFF FINAL Differential Comment Prothrombin Time 10.0 SEC Prothromb Time International Ratio 1.0 RATIO Activated Partial Thromboplast Time 27.0 SEC Urine Color LIGHT-YELLOW Urine Turbidity CLOUDY Urine pH 6.0 Urine Specific [place] 1.012 Urine Protein NEG mg/dL Urine Glucose (UA) NEG mg/dL Urine Ketones NEG mg/dL Urine Occult Blood NEG Urine Nitrite NEG Urine Bilirubin NEG Urine Urobilinogen LESS THAN 2.0 MG/DL Urine Leukocyte Esterase TRACE Urine RBC 1 /hpf Urine WBC 4 /hpf Urine Squamous Epithelial Cells 88 /hpf Urine Bacteria RARE /hpf Microscopic Urinalysis Comment CULT NOT INDICATED Blood Urea Nitrogen 12 MG/DL Creatinine 1.05 MG/DL Random Glucose 80 MG/DL Total Protein 7.5 GM/DL Albumin 3.9 GM/DL Calcium Level 9.3 MG/DL Alkaline Phosphatase 106 U/L Aspartate Amino Transf (AST/SGOT) 23 U/L Alanine Aminotransferase (ALT/SGPT) 31 U/L Total Bilirubin 0.3 MG/DL Sodium Level 141 MEQ/L Potassium Level 3.7 MEQ/L Chloride Level 108 MEQ/L Carbon Dioxide Level 22.7 MEQ/L Anion Gap 10 MEQ/L Estimat Glomerular Filtration Rate 70 ML/MIN Lipase 110 U/L [facility] Medical Record Reviewed: Yes Supervised Visit with RIVKA: Yes Narrative Course CBC shows no leukocytosis, no anemia, normal platelet count, and no evidence of any left shift. Regulation profile is within normal limits UA is not consistent with any UTI Chemistry shows normal electrolytes, normal liver/pancreas/kidney functions. CT abdomen shows no acute abnormality except for a 3.3 cm left adnexal cyst ovarian in nature, with calcified pleural plaque involving the right hemithorax likely postinflammatory in nature. As read by the radiologist Diagnosis Primary Impression: LEFT OVARIAN CYST Patient Instructions: General Instructions, Ovarian Cyst (DC) Scripts Tramadol (Ultram) 50 Mg Tab 50 MG PO Q6H Y for PAIN, #14 TAB 0 Refills Prov: Gianluca Simpson MD 06/04/17 Ondansetron Odt (Zofran Odt) 4 Mg Tab 4 MG SL Q6HR Y for Nausea/Vomiting, #20 TAB 0 Refills Prov: Gianluca Simpson MD 06/04/17 Disposition: 01 DISCHARGE HOME Condition: Stable Gianluca Simpson MD Jun 04, 2017 23:59
== END 2017-06-05 00:50 | disposition home or self-care (01) ==
LOC: NEPE 20:41
DX: N83.202 Unspecified ovarian cyst, left side (principal); I10 Essential (primary) hypertension; Z72.0 Tobacco use
CPT/HCPCS: 74177; 80053; 81001; 83690; 85025; 85610; 85730; 96374; 96375; 99284; J2270; J2405; J7030; Q9967

== ENCOUNTER 2017-06-17 03:44 | Inpatient (IN) | payer SELFPAY ==
[~2017-06-17] VITALS: Ht 170.2 cm; Wt 106.3 kg
[~2017-06-17 03:44] MED LIST changes: +TRAM50 PO; +ZOFR4TAB3 SL
[2017-06-17 05:45] VITALS: RESP 16; O2SAT 98
[2017-06-17] MEDS ORDERED: SODIUM CHLOR 0.9% 1000 ML INJ 1,000 ML IV SCH (05:45)
[2017-06-17] MEDS ORDERED: ONDANSETRON HCL 4 MG/2 ML VIAL IV PUSH ONE (05:45)
[2017-06-17] MEDS ORDERED: KETOROLAC TROMETHAMINE 30 MG/ML (IVP) VIAL IV PUSH ONE (05:45)
--- NOTE | 2017-06-17 05:55 | PD ---
HPI Chief Complaint: Flank/Kidney Pain Time Seen by Provider: 05:08 Travel History International Travel<30 days: No Contact w/Intl Traveler<30days: No Traveled to known affect area: No History of Present Illness HPI This is a 42-year-old female who presents today with complaints of left-sided flank pain with associated dysuria. Patient also reports that she thought she had some left-sided lower chest pain as well. Patient denies any fevers, chills. No reported diarrhea. There is no reported blood in her urine. She has no history of kidney stones. When asked about the chest pain, patient states the left flank seems to radiate towards her left lateral chest wall and down towards her groin. There are no other complaints at time of my examination. PFSH Past Medical History Blood Disorders: No Anxiety: Yes Heart Rhythm Problems: No Cancer: No Cardiac Catheterization: No Cardiovascular Problems: Yes (HTN) High Cholesterol: No Chest Pain: No Congestive Heart Failure: No Cerebrovascular Accident: No Diabetes: No Diminished Hearing: No Endocrine: No Gastrointestinal Disorders: Yes (pancreatitis) Gout: Yes Genitourinary: No Headaches: No Heparin Induced Thrombocytopen: No Hypertension: Yes Immune Disorder: No Musculoskeletal: No Neurologic: No Psychiatric: No Reproductive: No Respiratory: No Immunizations Current: Yes Migraines: No Seizures: No Thyroid Disease: No ?: Not Past Surgical History Abdominal Surgery: Yes (colon resection, polyp removal) Cardiac Surgery: No Section: Yes Coronary Artery Bypass Graft: No Ear Surgery: No Endocrine Surgery: No Eye Surgery: No Genitourinary Surgery: No Gynecologic Surgery: Yes (, hysterectomy) Hysterectomy: Yes Neurologic Surgery: No Oral Surgery: No Thoracic Surgery: Yes Other Surgery: Yes (rectal polyps removed) Social History Alcohol Use: Yes (OCC) Tobacco Use: Yes (OCC) Substance Use: No Allergies-Medications (Allergen,Severity, Reaction): Coded Allergies: codeine (Unverified Allergy, Unknown, 04/16/17) Reported Meds & Prescriptions Reported Meds & Active Scripts Active Amlodipine (Amlodipine Besylate) 10 Mg Tab 10 Mg PO DAILY Review of Systems Except as stated in HPI: all other systems reviewed are Neg General / Constitutional: No: Fever, Chills HENT: No: Headaches, Lightheadedness, Neck Pain Cardiovascular: Positive: Chest Pain or Discomfort (Left lateral chest wall from the flank) Respiratory: No: Cough, Shortness of Breath Gastrointestinal: Positive: Nausea (Slight nausea), No: Vomiting, Abdominal Pain Genitourinary: Positive: Dysuria, No: Frequency, Incontinence, Pelvic Pain Musculoskeletal: Positive: Pain, No: Weakness (Left flank pain) Skin: No Rash, No Lesions Neurologic: No: Weakness, Dizziness Physical Exam Narrative GENERAL: Well-developed well-nourished female in no acute respiratory distress. SKIN: Focused skin assessment warm/dry. HEAD: Atraumatic. Normocephalic. EYES: No scleral icterus. No injection or drainage. ENT: No nasal bleeding or discharge. Mucous membranes pink and moist. NECK: Trachea midline. Supple. CARDIOVASCULAR: Regular rate and rhythm. No murmur appreciated. RESPIRATORY: No accessory muscle use. Clear to auscultation. Breath sounds equal bilaterally. GASTROINTESTINAL: Abdomen soft, non-tender, nondistended. BACK: Positive left CVA tenderness. MUSCULOSKELETAL: No obvious deformities. No clubbing. No cyanosis. No edema. NEUROLOGICAL: Awake and alert. No obvious cranial nerve deficits. Motor grossly within normal limits. Normal speech. Data Data Last Documented VS Vital Signs Date Time Temp Pulse Resp B/P (MAP) Pulse Ox O2 Delivery O2 Flow Rate FiO2 06/17/17 07:33 97.8 66 17 174/98 (123) 100 06/17/17 05:45 Room Air Orders Orders Electrocardiogram (06/17/17 05:41) Basic Metabolic Panel (Bmp) (06/17/17 05:41) Ckmb (Isoenzyme) Profile (06/17/17 05:41) Troponin I (06/17/17 05:41) Urinalysis - C+S If Indicated (06/17/17 05:41) Iv Access Insert/Monitor (06/17/17 05:41) Ecg Monitoring (06/17/17 05:41) Oximetry (06/17/17 05:41) Ketorolac Inj (Toradol Inj) (06/17/17 05:45) Ondansetron Inj (Zofran Inj) (06/17/17 05:45) Sodium Chlor 0.9% 1000 Ml Inj (Ns 1000 M (06/17/17 05:45) CKMB (06/17/17 05:50) CKMB% (06/17/17 05:50) Electrocardiogram (06/17/17 07:11) Complete Blood Count With Diff (06/17/17 07:11) Ct Abd/Pel W/O Iv Contrast (06/17/17 07:11) Morphine Inj (Morphine Inj) (06/17/17 07:30) Labs Laboratory Tests Test 06/17/17 05:40 06/17/17 05:50 06/17/17 07:15 Urine Color LIGHT-YELLOW Urine Turbidity CLEAR Urine pH 6.5 Urine Specific [place] 1.013 Urine Protein NEG mg/dL Urine Glucose (UA) NEG mg/dL Urine Ketones NEG mg/dL Urine Occult Blood NEG Urine Nitrite NEG Urine Bilirubin NEG Urine Urobilinogen LESS THAN 2.0 MG/DL Urine Leukocyte Esterase TRACE Urine RBC LESS THAN 1 /hpf Urine WBC 1 /hpf Urine Squamous Epithelial Cells 5 /hpf Urine Hyaline Casts 1 /lpf Microscopic Urinalysis Comment CULT NOT INDICATED Blood Urea Nitrogen 11 MG/DL Creatinine 1.04 MG/DL Random Glucose 89 MG/DL Calcium Level 8.9 MG/DL Sodium Level 141 MEQ/L Potassium Level 3.7 MEQ/L Chloride Level 109 MEQ/L Carbon Dioxide Level 24.7 MEQ/L Anion Gap 7 MEQ/L Estimat Glomerular Filtration Rate 71 ML/MIN Total Creatine Kinase 111 U/L Creatine Kinase MB 0.8 NG/ML Troponin I LESS THAN 0.02 NG/ML White Blood Count 7.7 TH/MM3 Red Blood Count 4.24 MIL/MM3 Hemoglobin 12.8 GM/DL Hematocrit 38.6 % Mean Corpuscular Volume 91.0 FL Mean Corpuscular Hemoglobin 30.2 PG Mean Corpuscular Hemoglobin Concent 33.2 % Red Cell Distribution Width 14.0 % Platelet Count 222 TH/MM3 Mean Platelet Volume 10.4 FL Neutrophils (%) (Auto) 55.2 % Lymphocytes (%) (Auto) 35.1 % Monocytes (%) (Auto) 7.4 % Eosinophils (%) (Auto) 1.8 % Basophils (%) (Auto) 0.5 % Neutrophils # (Auto) 4.3 TH/MM3 Lymphocytes # (Auto) 2.7 TH/MM3 Monocytes # (Auto) 0.6 TH/MM3 Eosinophils # (Auto) 0.1 TH/MM3 Basophils # (Auto) 0.0 TH/MM3 CBC Comment DIFF FINAL Differential Comment MDM Medical Decision Making Medical Screen Exam Complete: Yes Emergency Medical Condition: Yes Differential Diagnosis Renal calculus versus pyelonephritis versus pneumonia versus Narrative Course 42-year-old female presents today with complaints of left flank pain radiating down to her groin. Patient also says she has dysuria. Patient also reports plaints of left-sided chest pain, chest pressure. The patient's urinalysis shows no evidence of acute hematuria or infection. CT scan of the chest is pending. Cardiac enzymes and EKG showed no evidence of acute findings. The patient will be signed out to Dr. Arrieta to follow-up on the CT scan. If the CT scan is negative, the patient will be admitted to the chest pain center for rule out protocol. Diagnosis Primary Impression: Left flank pain Additional Impressions: Chest pain Dysuria Gagandeep Orozco MD Jun 17, 2017 05:55
[2017-06-17 06:06] LABS: BILIRUBIN, URINE NEG (NEG); BLOOD, URINE NEG (NEG); GLUCOSE,URINE NEG (NEG); HYALINE CAST, URINE 1 /lpf (RARE); KETONE, URINE NEG (NEG); NITRITE,URINE NEG (NEG); PH, URINE 6.5 (5.0-8.5); SQUAMOUS EPITHELIAL CELL URINE 5 /hpf (0-5); URINE COLOR LIGHT-YELLOW (YELLW/STRAW); URINE LEUKOCYTE ESTERASE TRACE (NEG)
[2017-06-17 06:29] LABS: BICARBONATE 24.7 MEQ/L (21.0-32.0); BLOOD UREA NITROGEN 11 MG/DL (7-18); CALCIUM 8.9 MG/DL (8.5-10.1); CHLORIDE 109 MEQ/L (98-107); CREATININE 1.04 MG/DL (0.50-1.00); GLOMERULAR FILTRATION RATE 71 ML/MIN (>89); GLUCOSE,RANDOM 89 MG/DL (74-106); SODIUM (NA) 141 MEQ/L (136-145)
[2017-06-17 06:32] LABS: TROPONIN I LESS THAN 0.02 NG/ML (0.02-0.05)
[2017-06-17 07:30] LABS: AUTOMATED NEUTROPHIL # 4.3 TH/MM3 (1.8-7.7); BASOPHIL % 0.5 % (0.0-2.0); EOSINOPHIL # 0.1 TH/MM3 (0-0.4); EOSINOPHIL % 1.8 % (0.0-4.0); HEMATOCRIT 38.6 % (35.0-46.0); HEMOGLOBIN 12.8 GM/DL (11.6-15.3); LYMPH % 35.1 % (9.0-44.0); LYMPHOCYTE # 2.7 TH/MM3 (1.0-4.8); MEAN CORPUSCULAR HEMOGLOBIN 30.2 PG (27.0-34.0); MEAN CORPUSCULAR HGB CONC 33.2 % (32.0-36.0); MEAN PLATELET VOLUME 10.4 FL (7.0-11.0); MONO % 7.4 % (0.0-8.0); MONOCYTE # 0.6 TH/MM3 (0-0.9); NEUT % 55.2 % (16.0-70.0); PLATELET COUNT 222 TH/MM3 (150-450); RED BLOOD COUNT 4.24 MIL/MM3 (4.00-5.30); WHITE BLOOD COUNT 7.7 TH/MM3 (4.0-11.0)
[2017-06-17] MEDS ORDERED: MORPHINE SULFATE 4 MG/ML INJ IV PUSH ONE ×2 (07:30→09:30)
[2017-06-17 07:33] VITALS: BP 174/98; PULSE 66; RESP 17; TEMP 97.8; O2SAT 100
--- NOTE | 2017-06-17 08:16 | RADRPT ---
EXAM DATE/TIME: 06/17/2017 07:57 [facility] COMPARISON: CT ABDOMEN & PELVIS W CONTRAST, June 04, 2017, 22:45. CT ABDOMEN & PELVIS W/O CONTRAST, April 20, 2016, 7:57. INDICATIONS : Left flank pain ORAL CONTRAST: No oral contrast ingested. RADIATION DOSE: 8.49 CTDIvol (mGy) MEDICAL HISTORY : Hypertension. SURGICAL HISTORY : Colon resection. Hysterectomy.Laparoscopy ENCOUNTER: Initial ACUITY: 1 day PAIN SCALE: 5/10 LOCATION: Left flank TECHNIQUE: Volumetric scanning of the abdomen and pelvis was performed. Using automated exposure control and ad justment of the mA and/or kV according to patient size, radiation dose was kept as low as reasonably achievable to obtain optimal diagnostic quality images. DICOM format image data is available electro nically for review and comparison. FINDINGS: LOWER LUNGS: Scarring within the posterior right lung base is stable within its visualized aspects. Partially calc ified pleural plaque as well. LIVER: Homogeneous density without lesion. There is no dilation of the biliary tree. No calcified gallston es. SPLEEN: Normal size without lesion. PANCREAS: Within normal limits. KIDNEYS: There is hydronephrosis and and hydroureter on the left. This is a new finding from the prior examina tion. There is a tubular fluid-filled structure within the left adnexa measuring 7.0 x 6.8 x 4.9 cm. I see no stones. Right kidney is unremarkable. ADRENAL GLANDS: Within normal limits. VASCULAR: There is no aortic aneurysm. BOWEL/MESENTERY: The stomach, small bowel, and colon demonstrate no acute abnormality. There is no free intraperitone al air or fluid. Surgical clips scattered throughout the abdomen. ABDOMINAL WALL: Within normal limits. RETROPERITONEUM: There is no lymphadenopathy. BLADDER: No wall thickening or mass. REPRODUCTIVE: Within normal limits. INGUINAL: There is no lymphadenopathy or hernia. MUSCULOSKELETAL: Within normal limits for patient age. CONCLUSION: 1. Enlarging cystic lesion within the left adnexa now generating obstruction of the distal left urete r. Presumably this lesion is ovarian in nature. It does warrant further characterization utilizing pe lvic sonography including transvaginal technique. The hydronephrosis is a new finding. No renal stone s. 2. Stable partially calcified pleural plaques involving the right lung base. Nick Monroy Jr., MD on June 17, 2017 at 8:03 Board Certified Radiologist. This report was verified electronically.
--- NOTE | 2017-06-17 10:00 | RADRPT ---
EXAM DATE/TIME: 06/17/2017 08:32 [facility] COMPARISON: No previous studies available for comparison. INDICATIONS : Left pelvic pain. MEDICAL HISTORY : Hypertension. Pancreatitis. Gout. Anxiety. Blood transfusions. SURGICAL HISTORY : Hysterectomy. section. Colon resection. Polyp removal. ENCOUNTER: Initial ACUITY: 1 day PAIN SCORE: 6/10 LOCATION: Left pelvis MEASUREMENTS: UTERUS: N/A cm Surgically absent ENDOMETRIAL STRIPE: RIGHT OVARY: Surgically absent. cm LEFT OVARY: 5.4 x 5.9 x 4.9 cm FINDINGS: UTERUS: Surgically absent RIGHT OVARY: Surgically absent LEFT OVARY: Contains several cysts, including a 3 cm cyst notable for a fairly thick echogenic wall and a 2 cm re latively simple appearing cyst. In addition, there is an irregularly shaped hypoechoic process contig uous with the ovary which measures 4 cm in maximum oblong dimension. MISCELLANEOUS: No free fluid. CONCLUSION: Surgically absent uterus and right ovary. Abnormal appearance of the remaining left ovary which will need to be followed. Alexander Ash MD on June 17, 2017 at 9:41 Board Certified Radiologist. This report was verified electronically.
[2017-06-17] MEDS ORDERED: SODIUM CHLORIDE 0.9% FLUSH 10 ML FLUSH IV FLUSH PRN (10:45)
[2017-06-17] MEDS ORDERED: NALOXONE HCL 0.4 MG/ML AMP IV PUSH PRN (10:45)
--- NOTE | 2017-06-17 11:08 | PD ---
Physical Exam Narrative Patient signed out to me by Dr. Orozco. Please see his documentation for complete details. Briefly, patient is a 42 year old female who comes in complaining of left flank pain and chest pain. Exam shows no abdominal tenderness or chest wall tenderness. Data Data Last Documented VS Vital Signs Date Time Temp Pulse Resp B/P (MAP) Pulse Ox O2 Delivery O2 Flow Rate FiO2 06/17/17 07:33 97.8 66 17 174/98 (123) 100 06/17/17 05:45 Room Air Orders Orders Basic Metabolic Panel (Bmp) (06/17/17 05:41) Ckmb (Isoenzyme) Profile (06/17/17 05:41) Troponin I (06/17/17 05:41) Urinalysis - C+S If Indicated (06/17/17 05:41) Iv Access Insert/Monitor (06/17/17 05:41) Ecg Monitoring (06/17/17 05:41) Oximetry (06/17/17 05:41) Ketorolac Inj (Toradol Inj) (06/17/17 05:45) Ondansetron Inj (Zofran Inj) (06/17/17 05:45) Sodium Chlor 0.9% 1000 Ml Inj (Ns 1000 M (06/17/17 05:45) CKMB (06/17/17 05:50) CKMB% (06/17/17 05:50) Electrocardiogram (06/17/17 07:11) Complete Blood Count With Diff (06/17/17 07:11) Ct Abd/Pel W/O Iv Contrast (06/17/17 07:11) Morphine Inj (Morphine Inj) (06/17/17 07:30) Morphine Inj (Morphine Inj) (06/17/17 09:30) Us Pelvis Comp W Dop Transvag (06/17/17 ) Admit Order (Ed Use Only) (06/17/17 ) Labs Laboratory Tests Test 06/17/17 05:40 06/17/17 05:50 06/17/17 07:15 Urine Color LIGHT-YELLOW Urine Turbidity CLEAR Urine pH 6.5 Urine Specific [place] 1.013 Urine Protein NEG mg/dL Urine Glucose (UA) NEG mg/dL Urine Ketones NEG mg/dL Urine Occult Blood NEG Urine Nitrite NEG Urine Bilirubin NEG Urine Urobilinogen LESS THAN 2.0 MG/DL Urine Leukocyte Esterase TRACE Urine RBC LESS THAN 1 /hpf Urine WBC 1 /hpf Urine Squamous Epithelial Cells 5 /hpf Urine Hyaline Casts 1 /lpf Microscopic Urinalysis Comment CULT NOT INDICATED Blood Urea Nitrogen 11 MG/DL Creatinine 1.04 MG/DL Random Glucose 89 MG/DL Calcium Level 8.9 MG/DL Sodium Level 141 MEQ/L Potassium Level 3.7 MEQ/L Chloride Level 109 MEQ/L Carbon Dioxide Level 24.7 MEQ/L Anion Gap 7 MEQ/L Estimat Glomerular Filtration Rate 71 ML/MIN Total Creatine Kinase 111 U/L Creatine Kinase MB 0.8 NG/ML Troponin I LESS THAN 0.02 NG/ML White Blood Count 7.7 TH/MM3 Red Blood Count 4.24 MIL/MM3 Hemoglobin 12.8 GM/DL Hematocrit 38.6 % Mean Corpuscular Volume 91.0 FL Mean Corpuscular Hemoglobin 30.2 PG Mean Corpuscular Hemoglobin Concent 33.2 % Red Cell Distribution Width 14.0 % Platelet Count 222 TH/MM3 Mean Platelet Volume 10.4 FL Neutrophils (%) (Auto) 55.2 % Lymphocytes (%) (Auto) 35.1 % Monocytes (%) (Auto) 7.4 % Eosinophils (%) (Auto) 1.8 % Basophils (%) (Auto) 0.5 % Neutrophils # (Auto) 4.3 TH/MM3 Lymphocytes # (Auto) 2.7 TH/MM3 Monocytes # (Auto) 0.6 TH/MM3 Eosinophils # (Auto) 0.1 TH/MM3 Basophils # (Auto) 0.0 TH/MM3 CBC Comment DIFF FINAL Differential Comment [facility] Supervised Visit with RIVKA: No Narrative Course CT abd/pelvis shows a ovarian cyst like mass pressing on the left ureter, causing hydronephrosis. Troponin is negative. Creatinine is within normal limits. Patient given pain medicine and will be admitted for further management. Diagnosis Primary Impression: Chest pain Qualified Codes: R07.9 - Chest pain, unspecified Additional Impressions: Hydronephrosis, left Flank pain Admitting Information Admitting Physician Requests: Admit Vi Arrieta MD Jun 17, 2017 11:08
[2017-06-17 12:00] VITALS: BP 173/112; PULSE 67; RESP 18; TEMP 97.3; O2SAT 100
[2017-06-17] MEDS ORDERED: ONDANSETRON HCL 4 MG/2 ML VIAL IVP PRN (12:00)
[2017-06-17] MEDS: SODIUM CHLOR 0.45% 1000 ML INJ 1,000 ML IV SCH (13:03)
--- NOTE | 2017-06-17 13:40 | HHI.HP ---
HPI Service [facility] Primary Care Physician No Primary Care Physician Admission Diagnosis chest pain, mass compressing ureter Diagnoses: Travel History International Travel<30 Days: No Contact w/Intl Traveler <30 Da: No Traveled to Known Affected Are: No History of Present Illness History from patient, ER physician communication, and review of medical records. Patient reported that starting around 10:30 PM last night, she had sudden onset of left flank pain severely. The pain would not go away throughout the night and it radiates down to her left groin. Denies any hematuria. Denies any decreased in urine. Denies any urinary burning or pain on urination. Patient reports of nausea but did not vomit. Denies fever. Denies feeling of fullness in her abdomen or pain prior in the past few weeks to months. Patient reports that she has had recent diagnosis of pneumonia at [facility]. She was told through her blood work and chest x-rays done there. She completed antibiotics for these. A total of 7 days course of Levaquin. Finished it about a week ago. Patient denies any recent weight loss. She did have some loss of appetite with the past 2 weeks because of his pneumonia. Denies any night sweats. In emergency room, patient's imaging studies revealed large left ovarian cyst which was impinging on the left ureter causing left hydronephrosis. When asked about these symptoms, patient reported that she has had history of severe endometriosis for which she had right oophorectomy with hysterectomy. She was told at that time that she also had cyst in her right ovary. She was here in the emergency room on June 04, 2017. At that time, CT abdomen and pelvis imaging was done which did not reveal any acute obstructive nephropathy. Review of Systems Except as stated in HPI: all other systems reviewed are Neg Past Family Social History Past Medical History htn Past Surgical History hysterectomy and right ovarectomy - due to endometriosis- 2011 colon resection - ileostomy - rectal polyps removed cysts removed laproscopically from ovaries Allergies: Coded Allergies: codeine (Unverified Allergy, Unknown, 04/16/17) Family History mom- htn grandmother from dad side- bone cancer, htn great grandfather on mom side- colon cancer, htn Social History smokes every now and then - mostly only when she drinks socially- once a week used to drink about 6 packs a day, NOT any drinks for more than a month no drugs Physical Exam Vital Signs Vital Signs Date Time Temp Pulse Resp B/P (MAP) Pulse Ox O2 Delivery O2 Flow Rate FiO2 06/17/17 12:00 97.3 67 18 173/112 (132) 100 06/17/17 11:19 06/17/17 07:33 97.8 66 17 174/98 (123) 100 06/17/17 05:45 16 98 Room Air Physical Exam GENERAL: This is a well-nourished, well-developed patient, in mild distress from pain SKIN: No rashes, ecchymoses or lesions. Cool and dry. HEAD: Atraumatic. Normocephalic. No temporal or scalp tenderness. EYES: No scleral icterus. No injection or drainage. ENT: Nose without bleeding, purulent drainage or septal hematoma. . Airway patent. NECK: Trachea midline. No JVD CARDIOVASCULAR: Regular rate and rhythm without murmurs, gallops, or rubs. RESPIRATORY: Clear to auscultation. Breath sounds equal bilaterally. No wheezes , rales, or rhonchi. GASTROINTESTINAL: Abdomen soft, non-tender, nondistended. No guarding. Left flank pain MUSCULOSKELETAL: Extremities without clubbing, cyanosis, or edema No calf tenderness. NEUROLOGICAL: Awake and alert. Motor and sensory grossly within normal limits. Normal speech. Laboratory Laboratory Tests Test 06/17/17 05:40 06/17/17 05:50 06/17/17 07:15 Urine Color LIGHT-YELLOW Urine Turbidity CLEAR Urine pH 6.5 Urine Specific [place] 1.013 Urine Protein NEG Urine Glucose (UA) NEG Urine Ketones NEG Urine Occult Blood NEG Urine Nitrite NEG Urine Bilirubin NEG Urine Urobilinogen LESS THAN 2.0 Urine Leukocyte Esterase TRACE Urine RBC LESS THAN 1 Urine WBC 1 Urine Squamous Epithelial Cells 5 Urine Hyaline Casts 1 Microscopic Urinalysis Comment CULT NOT INDICATED Blood Urea Nitrogen 11 Creatinine 1.04 Random Glucose 89 Calcium Level 8.9 Sodium Level 141 Potassium Level 3.7 Chloride Level 109 Carbon Dioxide Level 24.7 Anion Gap 7 Estimat Glomerular Filtration Rate 71 Total Creatine Kinase 111 Creatine Kinase MB 0.8 Troponin I LESS THAN 0.02 White Blood Count 7.7 Red Blood Count 4.24 Hemoglobin 12.8 Hematocrit 38.6 Mean Corpuscular Volume 91.0 Mean Corpuscular Hemoglobin 30.2 Mean Corpuscular Hemoglobin Concent 33.2 Red Cell Distribution Width 14.0 Platelet Count 222 Mean Platelet Volume 10.4 Neutrophils (%) (Auto) 55.2 Lymphocytes (%) (Auto) 35.1 Monocytes (%) (Auto) 7.4 Eosinophils (%) (Auto) 1.8 Basophils (%) (Auto) 0.5 Neutrophils # (Auto) 4.3 Lymphocytes # (Auto) 2.7 Monocytes # (Auto) 0.6 Eosinophils # (Auto) 0.1 Basophils # (Auto) 0.0 CBC Comment DIFF FINAL Differential Comment Result Diagram: 06/17/17 0715 06/17/17 0550 Caprini VTE Risk Assessment Caprini VTE Risk Assessment: Mod/High Risk (score >= 2) Caprini Risk Assessment Model Point Value = 1 Point Value = 2 Point Value = 3 Point Value = 5 Age 41-60 Minor surgery BMI > 25 kg/m2 Swollen legs Varicose veins or History of unexplained or recurrent spontaneous Oral contraceptives or hormone replacement Sepsis (< 1 month) Serious lung disease, including pneumonia (< 1 month) Abnormal pulmonary function Acute myocardial infarction Congestive heart failure (< 1 month) History of inflammatory bowel disease Medical patient at bed rest Age 61-74 Arthroscopic surgery Major open surgery (> 45 min) Laparoscopic surgery (> 45 min) Malignancy Confined to bed (> 72 hours) Immobilizing plaster cast Central venous access Age >= 75 History of VTE Family history of VTE Factor V Leiden Prothrombin [id number] Lupus anticoagulant Anticardiolipin antibodies Elevated serum homocysteine Heparin-induced thrombocytopenia Other congenital or acquired thrombophilia Stroke (< 1 month) Elective arthroplasty Hip, pelvis, or leg fracture Acute spinal cord injury (< 1 month) Prophylaxis Regimen Total Risk Factor Score Risk Level Prophylaxis Regimen 0-1 Low Early ambulation 2 Moderate Order ONE of the following: *Sequential Compression Device (SCD) *Heparin 5000 units SQ BID 3-4 Higher Order ONE of the following medications: *Heparin 5000 units SQ TID *Enoxaparin/Lovenox 40 mg SQ daily (WT < 150 kg, CrCl > 30 mL/min) *Enoxaparin/Lovenox 30 mg SQ daily (WT < 150 kg, CrCl > 10-29 mL/min) *Enoxaparin/Lovenox 30 mg SQ BID (WT < 150 kg, CrCl > 30 mL/min) AND/OR *Sequential Compression Device (SCD) 5 or more Highest Order ONE of the following medications: *Heparin 5000 units SQ TID (Preferred with Epidurals) *Enoxaparin/Lovenox 40 mg SQ daily (WT < 150 kg, CrCl > 30 mL/min) *Enoxaparin/Lovenox 30 mg SQ daily (WT < 150 kg, CrCl > 10-29 mL/min) *Enoxaparin/Lovenox 30 mg SQ BID (WT < 150 kg, CrCl > 30 mL/min) AND *Sequential Compression Device (SCD) Assessment and Plan Assessment and Plan Impression: Enlarging cystic left ovarian mass with compression on left ureter Left hydronephrosis secondary to obstructive uropathy from extrinsic compression 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 Urologist consulted. Likely patient will need renal stents placed. HEALTH POLICY ANALYST evaluation. Start patient on hydrochlorothiazide for BP control CT abdomen and pelvis personally reviewed. Enlarging cystic lesion in the left adnexal or with obstruction of some left ureter DVT prophylaxis with SCD. Discussed Condition With Patient, nursing staff Physician Certification 2 Midnight Certification Type: Admission for Inpatient Services Order for Inpatient Services The services are ordered in accordance with Medicare regulations or non- Medicare payer requirements, as applicable. In the case of services not specified as inpatient-only, they are appropriately provided as inpatient services in accordance with the 2-midnight benchmark. Estimated LOS (days): 2 days is the estimated time the patient will need to remain in the hospital, assuming treatment plan goals are met and no additional complications. Post-Hospital Plan: Home Clemencia Bowman MD Jun 17, 2017 13:40
[2017-06-17] MEDS: HYDROmorphone HCL PF 2 MG/ML VIAL IV PUSH PRN ×3 (14:21→21:56)
--- NOTE | 2017-06-17 14:56 | PD.CONS ---
HPI Service Urology Consult Requested By Reason for Consult Left hydronephrosis Primary Care Physician No Primary Care Physician Diagnosis: History of Present Illness 42-year-old female with no prior history nephrolithiasis who presented to the emergency room with acute onset of left flank pain. Workup included a CT scan of the abdomen and pelvis that demonstrated left hydroureteronephrosis secondary to compression of the distal left ureter from what appears to be a left ovarian cyst. Urology was consulted for management of the hydronephrosis and a BODY FITTER consult is currently pending. Patient denies any prior urologic history. She does have a history of undergoing a hysterectomy and right oophorectomy secondary to endometriosis back in 2011. She also status post colon resection and ileostomy also performed in 2012. Additional history includes laparoscopic resection of ovarian cysts. Review of Systems Constitutional: DENIES: Fever, Chills Gastrointestinal: COMPLAINS OF: Nausea Genitourinary: DENIES: Hematuria Musculoskeletal: COMPLAINS OF: Back pain (Left flank pain) Except as stated in HPI: all other systems reviewed are Neg Past Family Social History Past Medical History Ovarian cysts Endometriosis Rectal polyps Hypertension Past Surgical History Status post laparoscopic resection of ovarian cyst Status post hysterectomy with right oophorectomy Status post colon resection/ileostomy Status post removal of rectal polyps Reported Medications Refer to EMR Allergies: Coded Allergies: codeine (Unverified Allergy, Unknown, 04/16/17) Active Ordered Medications Refer to EMR Family History Colon cancer Hypertension Bone cancer Social History Occasional alcohol and tobacco use Denies history intravenous drug abuse Physical Exam Vital Signs Date Time Temp Pulse Resp B/P (MAP) Pulse Ox O2 Delivery O2 Flow Rate FiO2 06/17/17 12:00 97.3 67 18 173/112 (132) 100 06/17/17 11:19 06/17/17 07:33 97.8 66 17 174/98 (123) 100 06/17/17 05:45 16 98 Room Air Physical Exam GENERAL: This is a well-nourished, well-developed patient, in no apparent distress. SKIN: No rashes, ecchymoses or lesions. Cool and dry. HEAD: Atraumatic. Normocephalic. No temporal or scalp tenderness. EYES: Pupils equal round and reactive. Extraocular motions intact. No scleral icterus. No injection or drainage. ENT: Nose without bleeding, purulent drainage or septal hematoma. Throat without erythema, tonsillar hypertrophy or exudate. Uvula midline. Airway patent. NECK: Trachea midline. No JVD or lymphadenopathy. Supple, nontender, no meningeal signs. CARDIOVASCULAR: Regular rate and rhythm without murmurs, gallops, or rubs. RESPIRATORY: Clear to auscultation. Breath sounds equal bilaterally. No wheezes , rales, or rhonchi. GASTROINTESTINAL: Abdomen soft, non-tender, nondistended. No hepato-splenomegaly , or palpable masses. No guarding. GENITOURINARY: Bladder not distended, no CVA tenderness MUSCULOSKELETAL: Extremities without clubbing, cyanosis, or edema. No joint tenderness, effusion, or edema noted. No calf tenderness. Negative Homans sign bilaterally. NEUROLOGICAL: Awake and alert. Cranial nerves II through XII intact. Motor and sensory grossly within normal limits. Five out of 5 muscle strength in all muscle groups. Normal speech. Lab results reviewed: Yes Laboratory Tests Test 06/17/17 05:40 06/17/17 05:50 06/17/17 07:15 Urine Color LIGHT-YELLOW Urine Turbidity CLEAR Urine pH 6.5 Urine Specific [place] 1.013 Urine Protein NEG Urine Glucose (UA) NEG Urine Ketones NEG Urine Occult Blood NEG Urine Nitrite NEG Urine Bilirubin NEG Urine Urobilinogen LESS THAN 2.0 Urine Leukocyte Esterase TRACE Urine RBC LESS THAN 1 Urine WBC 1 Urine Squamous Epithelial Cells 5 Urine Hyaline Casts 1 Microscopic Urinalysis Comment CULT NOT INDICATED Blood Urea Nitrogen 11 Creatinine 1.04 Random Glucose 89 Calcium Level 8.9 Sodium Level 141 Potassium Level 3.7 Chloride Level 109 Carbon Dioxide Level 24.7 Anion Gap 7 Estimat Glomerular Filtration Rate 71 Total Creatine Kinase 111 Creatine Kinase MB 0.8 Troponin I LESS THAN 0.02 White Blood Count 7.7 Red Blood Count 4.24 Hemoglobin 12.8 Hematocrit 38.6 Mean Corpuscular Volume 91.0 Mean Corpuscular Hemoglobin 30.2 Mean Corpuscular Hemoglobin Concent 33.2 Red Cell Distribution Width 14.0 Platelet Count 222 Mean Platelet Volume 10.4 Neutrophils (%) (Auto) 55.2 Lymphocytes (%) (Auto) 35.1 Monocytes (%) (Auto) 7.4 Eosinophils (%) (Auto) 1.8 Basophils (%) (Auto) 0.5 Neutrophils # (Auto) 4.3 Lymphocytes # (Auto) 2.7 Monocytes # (Auto) 0.6 Eosinophils # (Auto) 0.1 Basophils # (Auto) 0.0 CBC Comment DIFF FINAL Differential Comment Result Diagram: 06/17/17 0715 06/17/17 0550 Personally reviewed images: Yes Assessment and Plan Assessment and Plan Urologic impression: Left hydronephrosis secondary to extrinsic compression of the distal left ureter from a likely ovarian cyst. Plan: 1. N.p.o. after midnight 2. Patient scheduled for cystoscopy, left retrograde pyelogram and left ureteral stent placement tomorrow at 1 PM Deandre Slater MD Jun 17, 2017 14:56
[2017-06-17 16:00] VITALS: BP 143/88; PULSE 72; RESP 17; TEMP 97.3; O2SAT 98
--- NOTE | 2017-06-17 16:16 | HHI.HP ---
HPI Chief Complaint Left flank pain Date Seen: Jun 17, 2017 Time Seen: 15:45 Travel History International Travel<30 Days: No Contact w/Intl Traveler<30Days: No Known Affected Area: No History of Present Illness HPI Ms. Olivia is a 42-year-old -[place] female with a past medical history of hypertension and endometriosis presenting to the hospital with left flank pain. She stated that last night when she laid down to go to sleep she felt immediate pain in her left flank. Is unable to sleep and then decided to go to the hospital early this morning. She discussed pain as a 10/10 dull throbbing constant pain in her left flank that radiates to her upper back and chest. Nothing makes it better. The pain feels worse with laying down and stretching. Pt has a hx of severe endometriosis. She states that it required, hysterectomy, right oophorectomy, and colectomy. She states that they did not remove the left ovary because it was "plastered" to her pelvic wall. History Past Medical History Narrative Medical Hypertension Endometriosis Obstetric History Obstetric History Past Surgical History Narrative Surgical Hysterectomy plan: Resection-2011 [id number] Rectal polyps removal Ovarian cystectomy (pt unsure of side)-2007 Family History Narrative Family History Mother-hypertension, Father-agent orange syndrome Social History Narrative Social History Lives with her girlfriend and her girlfriend's mother Currently unemployed Occasional alcohol use Rare cigarette use Denies illicit drug use Allergies-Medications (Allergen,Severity, Reaction): Coded Allergies: codeine (Unverified Allergy, Unknown, 04/16/17) Home Meds Active Scripts Amlodipine (Amlodipine) 10 Mg Tab, 10 MG PO DAILY for Blood Pressure Management , #30 TAB 0 Refills Prov:Jun Zimmerman MD 12/12/16 Discontinued Scripts Tramadol (Ultram) 50 Mg Tab, 50 MG PO Q6H Y for PAIN, #14 TAB 0 Refills Prov:Gianluca Simpson MD 06/04/17 Ondansetron Odt (Zofran Odt) 4 Mg Tab, 4 MG SL Q6HR Y for Nausea/Vomiting, #20 TAB 0 Refills Prov:Gianluca Simpson MD 06/04/17 Hydrocodone/Acetaminophen (Hydrocodone-Acetamin 5-325 mg) 5 Mg-325 Mg Tablet, 1- 2 TAB PO Q6HR Y for pain, #20 TAB Prov:Izzy Bazan Les LARSEN 04/18/17 Review of Systems General / Constitutional: No: Fever, Chills Eyes: No: Blurred Vision HENT: No: Headaches Cardiovascular: No: Chest Pain or Discomfort Respiratory: No: Short of Breath Gastrointestinal: No: Nausea, Vomiting, Diarrhea, Constipation Genitourinary: Dysuria, No: Hematuria Skin: Rash Physical Exam Vital Signs Date Time Temp Pulse Resp B/P (MAP) Pulse Ox O2 Delivery O2 Flow Rate FiO2 06/17/17 12:00 97.3 67 18 173/112 (132) 100 06/17/17 11:19 06/17/17 07:33 97.8 66 17 174/98 (123) 100 06/17/17 05:45 16 98 Room Air Narrative GENERAL: Well-nourished, well-developed patient. SKIN: Warm and dry. HEAD: Normocephalic and atraumatic. EYES: No scleral icterus. No injection or drainage. ENT: No nasal drainage noted. Mucous membranes pink. Airway patent. NECK: Supple, trachea midline. No JVD. CARDIOVASCULAR: Regular rate and rhythm without murmurs, gallops, or rubs. RESPIRATORY: Breath sounds equal bilaterally. No accessory muscle use. ABDOMEN/GI: Abdomen soft, left lower quadrant and suprapubic tenderness, bowel sounds present, no rebound, no guarding GENITOURINARY: External Genitalia: intact and normal in appearance Thin white malodorous discharge coming from vagina. Vaginal canal is narrow. Cervix is surgically absent. EXTREMITIES: No cyanosis or edema. BACK: Nontender without obvious deformity. No CVA tenderness. NEUROLOGICAL: Awake and alert. Motor and sensory grossly within normal limits. Five out of 5 muscle strength in all muscle groups. Normal speech. Caprini VTE Risk Assessment Caprini VTE Risk Assessment: Mod/High Risk (score >= 2) Caprini Risk Assessment Model Point Value = 1 Point Value = 2 Point Value = 3 Point Value = 5 Age 41-60 Minor surgery BMI > 25 kg/m2 Swollen legs Varicose veins or History of unexplained or recurrent spontaneous Oral contraceptives or hormone replacement Sepsis (< 1 month) Serious lung disease, including pneumonia (< 1 month) Abnormal pulmonary function Acute myocardial infarction Congestive heart failure (< 1 month) History of inflammatory bowel disease Medical patient at bed rest Age 61-74 Arthroscopic surgery Major open surgery (> 45 min) Laparoscopic surgery (> 45 min) Malignancy Confined to bed (> 72 hours) Immobilizing plaster cast Central venous access Age >= 75 History of VTE Family history of VTE Factor V Leiden Prothrombin [id number] Lupus anticoagulant Anticardiolipin antibodies Elevated serum homocysteine Heparin-induced thrombocytopenia Other congenital or acquired thrombophilia Stroke (< 1 month) Elective arthroplasty Hip, pelvis, or leg fracture Acute spinal cord injury (< 1 month) Prophylaxis Regimen Total Risk Factor Score Risk Level Prophylaxis Regimen 0-1 Low Early ambulation 2 Moderate Order ONE of the following: *Sequential Compression Device (SCD) *Heparin 5000 units SQ BID 3-4 Higher Order ONE of the following medications: *Heparin 5000 units SQ TID *Enoxaparin/Lovenox 40 mg SQ daily (WT < 150 kg, CrCl > 30 mL/min) *Enoxaparin/Lovenox 30 mg SQ daily (WT < 150 kg, CrCl > 10-29 mL/min) *Enoxaparin/Lovenox 30 mg SQ BID (WT < 150 kg, CrCl > 30 mL/min) AND/OR *Sequential Compression Device (SCD) 5 or more Highest Order ONE of the following medications: *Heparin 5000 units SQ TID (Preferred with Epidurals) *Enoxaparin/Lovenox 40 mg SQ daily (WT < 150 kg, CrCl > 30 mL/min) *Enoxaparin/Lovenox 30 mg SQ daily (WT < 150 kg, CrCl > 10-29 mL/min) *Enoxaparin/Lovenox 30 mg SQ BID (WT < 150 kg, CrCl > 30 mL/min) AND *Sequential Compression Device (SCD) Data Data Vital Signs Reviewed: Yes Orders Orders Basic Metabolic Panel (Bmp) (06/17/17 05:41) Ckmb (Isoenzyme) Profile (06/17/17 05:41) Troponin I (06/17/17 05:41) Urinalysis - C+S If Indicated (06/17/17 05:41) Iv Access Insert/Monitor (06/17/17 05:41) Ecg Monitoring (06/17/17 05:41) Oximetry (06/17/17 05:41) Ketorolac Inj (Toradol Inj) (06/17/17 05:45) Ondansetron Inj (Zofran Inj) (06/17/17 05:45) Sodium Chlor 0.9% 1000 Ml Inj (Ns 1000 M (06/17/17 05:45) CKMB (06/17/17 05:50) CKMB% (06/17/17 05:50) Electrocardiogram (06/17/17 07:11) Complete Blood Count With Diff (06/17/17 07:11) Ct Abd/Pel W/O Iv Contrast (06/17/17 07:11) Morphine Inj (Morphine Inj) (06/17/17 07:30) Morphine Inj (Morphine Inj) (06/17/17 09:30) Us Pelvis Comp W Dop Transvag (06/17/17 ) Admit Order (Ed Use Only) (06/17/17 ) Place In Observation (06/17/17 ) Vital Signs (Adult) Q4H (06/17/17 10:40) Activity Oob With Assistance (06/17/17 10:40) Fryer Operator / Telemetry .CONTINUOUS (06/17/17 10:40) Diet Npo (06/17/17 Lunch) Sodium Chlor 0.45% 1000 Ml Inj (1/2 Ns 1 (06/17/17 12:00) Sodium Chloride 0.9% Flush (Ns Flush) (06/17/17 10:45) Sodium Chloride 0.9% Flush (Ns Flush) (06/17/17 21:00) Ondansetron Inj (Zofran Inj) (06/17/17 12:00) Basic Metabolic Panel (Bmp) (06/18/17 06:00) Complete Blood Count With Diff (06/18/17 06:00) Case Management Consult (06/17/17 10:40) Naloxone Inj (Narcan Inj) (06/17/17 10:45) Consult Urology (06/17/17 ) Consult Gynecology (06/17/17 ) (Hub Use Only)Inp Phy Cons/Ref (06/17/17 ) (Hub Use Only)Inp Phy Cons/Ref (06/17/17 ) Admit To Inpatient (06/17/17 ) Inpatient Certification (06/17/17 ) Hydromorphone Pf Inj (Dilaudid Pf Inj) (06/17/17 14:00) ^ Other Nursing Orders (06/17/17 14:48) Diet Regular Basic (06/17/17 Dinner) Npo After Midnight W/ Po Meds (06/18/17 Breakfast) Scd Bilateral/Knee High PRAVEEN.QSHIFT (06/17/17 15:21) Physician Name Changes (06/17/17 ) Labs Laboratory Tests Test 06/17/17 05:40 06/17/17 05:50 06/17/17 07:15 Urine Color LIGHT-YELLOW Urine Turbidity CLEAR Urine pH 6.5 Urine Specific [place] 1.013 Urine Protein NEG Urine Glucose (UA) NEG Urine Ketones NEG Urine Occult Blood NEG Urine Nitrite NEG Urine Bilirubin NEG Urine Urobilinogen LESS THAN 2.0 Urine Leukocyte Esterase TRACE Urine RBC LESS THAN 1 Urine WBC 1 Urine Squamous Epithelial Cells 5 Urine Hyaline Casts 1 Microscopic Urinalysis Comment CULT NOT INDICATED Blood Urea Nitrogen 11 Creatinine 1.04 Random Glucose 89 Calcium Level 8.9 Sodium Level 141 Potassium Level 3.7 Chloride Level 109 Carbon Dioxide Level 24.7 Anion Gap 7 Estimat Glomerular Filtration Rate 71 Total Creatine Kinase 111 Creatine Kinase MB 0.8 Troponin I LESS THAN 0.02 White Blood Count 7.7 Red Blood Count 4.24 Hemoglobin 12.8 Hematocrit 38.6 Mean Corpuscular Volume 91.0 Mean Corpuscular Hemoglobin 30.2 Mean Corpuscular Hemoglobin Concent 33.2 Red Cell Distribution Width 14.0 Platelet Count 222 Mean Platelet Volume 10.4 Neutrophils (%) (Auto) 55.2 Lymphocytes (%) (Auto) 35.1 Monocytes (%) (Auto) 7.4 Eosinophils (%) (Auto) 1.8 Basophils (%) (Auto) 0.5 Neutrophils # (Auto) 4.3 Lymphocytes # (Auto) 2.7 Monocytes # (Auto) 0.6 Eosinophils # (Auto) 0.1 Basophils # (Auto) 0.0 CBC Comment DIFF FINAL Differential Comment Assessment/Plan Problem List: (1) Ovarian cyst ICD Codes: N83.209 - Unspecified ovarian cyst, unspecified side Status: Acute Qualifiers: Qualified Codes: N83.202 - Unspecified ovarian cyst, left side Plan: 42yo presenting with left flank pain. CT abdomen/ pelvis shows left- sided hydronephrosis and and hydroureter. Also, a tubular fluid-filled structure within the left adnexa measuring 7.0 x 6.8 x 4.9 cm. Transvaginal US showed the left ovary containing several cysts, including a 3 cm cyst notable for a fairly thick echogenic wall and a 2 cm relatively simple appearing cyst. Patient has an extensive history of severe endometriosis. Due to this, the ovary may be adhered to the ureter causing obstruction. It is typically not usual for ovaries of this size to cause obstruction. -Refer for further SURGICAL SERVICES MANAGER evaluation with Dr. Tafoya -We agree with current management plans, ie ureteral stent placement Thank you for this consultation SDW Jana Stover MD R1 Jun 17, 2017 16:16
--- NOTE | 2017-06-17 17:44 | HHI.PR ---
Subjective Remarks [facility] Attending The patient is a 42 year-old P1001 with a hx of severe endometriosis that it required a hysterectomy, right oophorectomy, and colectomy. Her left ovary was not removed at that time because it was "plastered" to her pelvic wall. The patient presents complaining of left flank pain. She was noted to have hydronephrosis secondary to suspected distal left ureteral compression. CT revealed a tubular fluid-filled structure within the left adnexa measuring 7.0 x 6.8 x 4.9 cm, noted to be an enlarging cystic lesion within the left adnexa now generating obstruction of the distal left ureter. Presumably this lesion is ovarian in nature. TV US showed a left ovary measuring 5.4 x 5.9 x 4.9 cm and contains several cysts, including a 3 cm cyst notable for a fairly thick echogenic wall and a 2 cm relatively simple appearing cyst. In addition, there is an irregularly shaped hypoechoic process contiguous with the ovary which measures 4 cm in maximum oblong dimension. I saw and examined the patient with the resident. While typically ovarian cysts of these dimensions would not cause significant ureteral compression, the patient has a history of severe endometriosis and it is possible the adnexa is adherent to the ureter due to endometriosis, thus causing even a relatively small ovarian mass or cyst to result in ureteral compression. Recommend current management with ureteral stent and further referral to bulk materials handling plant operator as an outpatient to follow the cyst and/or consider removal. Discussed with patient, all questions answered, will give bulk materials handling plant operator followup information. Objective Vital Signs Date Time Temp Pulse Resp B/P (MAP) Pulse Ox O2 Delivery O2 Flow Rate FiO2 06/17/17 16:00 97.3 72 17 143/88 (106) 98 06/17/17 12:00 97.3 67 18 173/112 (132) 100 06/17/17 11:19 06/17/17 07:33 97.8 66 17 174/98 (123) 100 06/17/17 05:45 16 98 Room Air Result Diagram: 06/17/17 0715 06/17/17 0550 Apryl Blanchard MD Jun 17, 2017 17:44
[2017-06-17 17:55] VITALS: PULSE 69
[2017-06-17] MEDS ORDERED: SODIUM CHLORID 0.9% 500 ML IV PRN (18:30)
[2017-06-17] MEDS ORDERED: POVIDONE IODINE 5% (ANTISEPSIS KIT) 4 APPLICATIONS EACH NARE PRN (18:30)
[2017-06-17] MEDS ORDERED: METOPROLOL TARTRATE 25 MG TAB PO PRN (18:30)
[2017-06-17] MEDS ORDERED: CHLORHEXIDINE GLUCONATE 2 % 1 PACK (2 CLOTHS) TOPICAL PRN (18:30)
[2017-06-17] MEDS ORDERED: LACTATED RINGER'S 1000 ML IV PRN (18:30)
[2017-06-17 20:00] VITALS: BP 149/88; PULSE 62; PULSE 68; RESP 16; TEMP 97.3; O2SAT 100
[2017-06-17] MEDS: SODIUM CHLORIDE 0.9% FLUSH 10 ML FLUSH IV FLUSH SCH (21:00)
[2017-06-18] VITALS (9 sets, daily range): BP systolic 132–170; BP diastolic 77–99; PULSE 57–79; RESP 16–20; TEMP 97–99.4; O2SAT 97–100
--- NOTE | 2017-06-18 00:10 | EKG ---
Date Performed: 06/17/2017 Time Performed: 07:33:59 PTAGE: 42 years EKG: Sinus rhythm WITH FIRST DEGREE AV BLOCK NONSPECIFIC T-WAVE ABNORMALITY ABNORMAL ECG PREVIOUS TRACING : 06/23/2016 22.13 DOCTOR: Carlos Enrique Atkinson Interpretating Date/Time 06/18/2017 00:04:31
[2017-06-18] MEDS: SODIUM CHLOR 0.45% 1000 ML INJ 1,000 ML IV SCH ×2 (00:52→15:50)
[2017-06-18] MEDS: HYDROmorphone HCL PF 2 MG/ML VIAL IV PUSH PRN ×6 (00:52→21:45)
[2017-06-18] MEDS ORDERED: PROCHLORPERAZINE INJ 10 MG/2 ML VIAL IV PUSH PRN (01:00)
[2017-06-18 07:42] LABS: AUTOMATED NEUTROPHIL # 2.7 TH/MM3 (1.8-7.7); BASOPHIL % 0.3 % (0.0-2.0); EOSINOPHIL # 0.1 TH/MM3 (0-0.4); EOSINOPHIL % 2.6 % (0.0-4.0); HEMATOCRIT 35.9 % (35.0-46.0); LYMPH % 34.4 % (9.0-44.0); LYMPHOCYTE # 1.8 TH/MM3 (1.0-4.8); MEAN CELL VOLUME 90.3 FL (80.0-100.0); MEAN CORPUSCULAR HEMOGLOBIN 30.3 PG (27.0-34.0); MEAN CORPUSCULAR HGB CONC 33.6 % (32.0-36.0); MEAN PLATELET VOLUME 10.5 FL (7.0-11.0); MONO % 10.4 % (0.0-8.0); MONOCYTE # 0.5 TH/MM3 (0-0.9); NEUT % 52.3 % (16.0-70.0); PLATELET COUNT 205 TH/MM3 (150-450); RED BLOOD COUNT 3.97 MIL/MM3 (4.00-5.30); RED CELL DISTRIBUTION WIDTH 13.7 % (11.6-17.2); WHITE BLOOD COUNT 5.2 TH/MM3 (4.0-11.0)
[2017-06-18 08:25] LABS: BICARBONATE 22.5 MEQ/L (21.0-32.0); CALCIUM 8.9 MG/DL (8.5-10.1); CREATININE 1.15 MG/DL (0.50-1.00)
[2017-06-18] MEDS: SODIUM CHLORIDE 0.9% FLUSH 10 ML FLUSH IV FLUSH SCH ×2 (09:00→21:46)
[2017-06-18] MEDS ORDERED: ePHEDrine/NS 25 MG/5 ML SYRINGE IV ONE (12:00)
[2017-06-18] MEDS ORDERED: DEXAMETHASONE SOD PHOS 4 MG/ML VIAL IV ONE (12:00)
[2017-06-18] MEDS ORDERED: ceFAZolin INJ 1,000 MG VIAL IV ONE ×2 (12:00→14:16)
[2017-06-18] MEDS ORDERED: LIDOCAINE HCL 1% PF 5 ML SYRINGE OTHER ONE (12:00)
[2017-06-18] MEDS ORDERED: ROCURONIUM INJ 50 MG/5 ML SYRINGE IV PUSH ONE (12:00)
[2017-06-18] MEDS ORDERED: PROPOFOL 200 MG/20 ML AMP IV ONE (12:00)
[2017-06-18] MEDS ORDERED: IOHEXOL 350 MG/ML 50 ML BTL (for RAD DIAG) OTHER ONE (14:20)
--- NOTE | 2017-06-18 14:35 | PD.OP ---
Operative Report Date of Surgery: Jun 18, 2017 Preoperative Diagnosis: (1) Hydronephrosis, left Postoperative Diagnosis: (1) Hydronephrosis, left Procedure: Cystoscopy, left retrograde pyelogram and left ureteral stent placement Anesthesia: General Surgeon: Deandre Slater Stoner Hand(s): None Operation and Findings: Indication for procedures: Case of a pleasant 42-year-old female with left hydronephrosis secondary to extrinsic compression of the left ureter by an ovarian cystic mass who presents now for cystoscopy, left retrograde pyelogram and left ureteral stent placement. Operative procedures in detail: Patient was brought to the operating room suite and placed supine on the cystoscopy table. She was then placed under general anesthesia. She was then repositioned in the dorsolithotomy position and prepped and draped in normal sterile fashion. After an appropriate timeout was undertaken I proceeded with cystoscopic evaluation utilizing the rigid cystoscope with the 20 Ug[place]an sheath and the 30 lens. Both right and left ureteral orifices were in correct anatomic position. There was clear drainage from the right orifice and there was sluggish drainage noted on the left. A 6 Ugandan open-ended ureteral catheter was utilized and a left retrograde program study was performed. There was prompt filling and no drainage noted secondary to extrinsic compression of the distal left ureter. I then passed a sensor 0.035 wire up the left ureter into the left renal pelvis and subsequently passed a optimal long-term 6 Ugandan 24 cm double-J stent on the both cystoscopic and fluoroscopic guidance without difficulty. Once the stent was in proper position the trailing string was removed. The bladder was drained of all irrigant fluid and the cystoscope withdrawn. The patient tolerated the procedures without complications and was transferred to the PACU in satisfactory condition. Deandre Slater MD Jun 18, 2017 14:35
[2017-06-18] MEDS ORDERED: DO NOT ADM ANY ANTICOAGULANT DRUGS PRN (14:46)
[2017-06-18] MEDS ORDERED: MIDAZOLAM HCL 2 MG/2 ML VIAL ONE (14:57)
--- NOTE | 2017-06-18 18:00 | HHI.PR ---
Subjective Remarks Patient complains of left flank pain. Denies chest pain or shortness of breath Status post cystoscopy with left stent placement. Objective Vitals Vital Signs Date Time Temp Pulse Resp B/P (MAP) Pulse Ox O2 Delivery O2 Flow Rate FiO2 06/18/17 15:00 98.7 68 16 172/101 (124) 97 Room Air 06/18/17 14:45 75 16 163/86 (111) 97 Room Air 06/18/17 14:43 98.0 75 16 138/87 (104) 97 Nasal Cannula 2 06/18/17 12:00 97.4 64 20 132/93 (106) 99 06/18/17 08:00 97.7 61 18 148/86 (106) 97 06/18/17 07:00 Room Air 06/18/17 04:08 Room Air 06/18/17 04:08 65 06/18/17 04:00 97.5 72 16 138/91 (107) 100 06/18/17 00:00 97.6 66 16 156/98 (117) 97 06/18/17 00:00 Room Air 06/18/17 00:00 69 06/17/17 20:00 97.3 68 16 149/88 (108) 100 06/17/17 20:00 62 06/17/17 20:00 Room Air 06/17/17 17:55 69 I/O 06/17/17 06/17/17 06/17/17 06/18/17 06/18/17 06/18/17 06:59 14:59 22:59 06:59 14:59 22:59 Intake Total 50 ml 0 ml 500 ml 1000 ml Output Total 900 ml Balance 50 ml -900 ml 500 ml 1000 ml Intake Oral 50 ml 0 ml IV Total 500 ml 1000 ml Output Urine Total 900 ml # Voids 2 # Bowel Movements 0 0 Result Diagram: 06/18/17 0620 06/18/17 0620 Imaging Last Impressions Abdomen/Pelvis CT 06/17/17 0711 Signed Impressions: Service Date/Time: Saturday, June 17, 2017 07:57 - CONCLUSION: 1. Enlarging cystic lesion within the left adnexa now generating obstruction of the distal left ureter. Presumably this lesion is ovarian in nature. It does warrant further characterization utilizing pelvic sonography including transvaginal technique. The hydronephrosis is a new finding. No renal stones. 2. Stable partially calcified pleural plaques involving the right lung base. Nick Monroy Jr., MD Abdomen/Pelvis/Transvag US 06/17/17 0000 Signed Impressions: Service Date/Time: Saturday, June 17, 2017 08:32 - CONCLUSION: Surgically absent uterus and right ovary. Abnormal appearance of the remaining left ovary which will need to be followed. Alexander Ash MD Objective Remarks AAO 3 In moderate distress due to pain, sitting on the edge of the bed Clear lungs bilaterally. Abdomen soft, nontender nondistended Left flank pain No edema in lower extremities. Procedures Cystoscopy, left retrograde pyelogram and left ureteral stent placement Medications and IVs Current Medications Medications (Trade) Dose Ordered Sig/Evie Route Start Time Stop Time Status Last Admin Sodium Chloride 1,000 ml @ 75 mls/hr [id number] IV 06/17/17 12:00 06/18/17 15:50 (NS Flush) 2 ml UNSCH PRN IV FLUSH 06/17/17 10:45 (NS Flush) 2 ml BID IV FLUSH 06/17/17 21:00 06/18/17 09:00 (Zofran Inj) 4 mg Q6H PRN IVP 06/17/17 12:00 06/17/17 21:58 (Narcan Inj) 0.4 mg UNSCH PRN IV PUSH 06/17/17 10:45 (Dilaudid Pf Inj) 0.5 mg Q3H PRN IV PUSH 06/17/17 14:00 06/18/17 15:44 Lactated Ringer's 1,000 ml @ 30 mls/hr Q24H PRN IV 06/17/17 18:30 06/20/17 18:29 Sodium Chloride 500 ml @ 30 mls/hr [id number] PRN IV 06/17/17 18:30 06/20/17 18:29 (Lopressor) 25 mg DANCE TEACHER PRN PO 06/17/17 18:30 06/20/17 18:29 (Betadine 5% Antisepsis Kit) 1 applic DANCE TEACHER PRN EACH NARE 06/17/17 18:30 06/20/17 18:29 (Chlorhexidine 2% Cloth) 3 pack DANCE TEACHER PRN TOPICAL 06/17/17 18:30 06/20/17 18:29 (Compazine Inj) 5 mg Q4H PRN IV PUSH 06/18/17 01:00 06/18/17 01:22 Miscellaneous Information ALL NURSING DEPARTME... UNSCH PRN .XX 06/18/17 14:46 06/19/17 14:45 A/P Problem List: (1) Hydronephrosis, left ICD Code: N13.30 - Unspecified hydronephrosis Plan: The patient was admitted to the medical floor Urology consulted. Status post cystoscopy with insertion of left ureteral stent (2) Ovarian cyst ICD Code: N83.209 - Unspecified ovarian cyst, unspecified side Status: Acute Plan: The abdomen and pelvis showed enlarging cystic lesion in the left adnexa with obstruction of the left ureter. LOGISTICS PLANNING ENGINEER consulted. Recommended stent insertion and outpatient follow-up with LOGISTICS PLANNING ENGINEER. (3) Left flank pain ICD Code: R10.9 - Unspecified abdominal pain Status: Acute Plan: Patient complains of severe pain 9/10 of her left flank. We will order 1 mg of IV Dilaudid now and start the patient on oral Percocet. (4) Hypertension ICD Code: I10 - Essential (primary) hypertension Status: Acute Plan: Blood pressure seems to be very elevated in the 170 systolic. Resume home amlodipine 10 minutes p.o. daily. Also possibly uncontrolled due to increased pain. Will improve pain control. (5) CKD (chronic kidney disease), stage III ICD Code: N18.3 - Chronic kidney disease, stage 3 (moderate) Plan: Creatinine is trending up. Upon review of records the patient has possibly CKD stage III with a baseline creatinine of 0.9-1.1. Assessment and Plan DVT prophylaxis: SCDs. Discharge Planning Possible discharge in a.m. pending pain control and creatinine improvement. Problem Qualifiers (1) Ovarian cyst: Qualified Codes: N83.202 - Unspecified ovarian cyst, left side (2) Hypertension: Qualified Codes: I10 - Essential (primary) hypertension Spencer Dexter MD Jun 18, 2017 18:00
[2017-06-18] MEDS ORDERED: oxyCODONE/ACETAMINOPHEN 5 MG/325 MG TAB PO PRN (18:30)
[2017-06-18] MEDS ORDERED: HYDROmorphone HCL PF 2 MG/ML VIAL IV PUSH ONE (18:45)
[2017-06-19] VITALS (7 sets, daily range): BP systolic 144–157; BP diastolic 85–89; PULSE 66–93; RESP 17–20; TEMP 97–98.1; O2SAT 99–100
[2017-06-19] MEDS: HYDROmorphone HCL PF 2 MG/ML VIAL IV PUSH PRN ×2 (01:48→08:01)
[2017-06-19] MEDS: SODIUM CHLOR 0.45% 1000 ML INJ 1,000 ML IV SCH (03:55)
[2017-06-19] MEDS: oxyCODONE/ACETAMINOPHEN 5 MG/325 MG TAB PO PRN ×4 (04:59→17:24)
[2017-06-19] MEDS: SODIUM CHLORIDE 0.9% FLUSH 10 ML FLUSH IV FLUSH SCH (09:00)
[2017-06-19 12:14] LABS: BICARBONATE 23.6 MEQ/L (21.0-32.0); CALCIUM 9.2 MG/DL (8.5-10.1); CREATININE 1.02 MG/DL (0.50-1.00)
[2017-06-19] MEDS ORDERED: OXYC1TAB63 PO (14:51)
--- NOTE | 2017-06-19 14:52 | HHI.DCPOC ---
Discharge Care Plan Diagnosis: (1) Hypertension (2) Hydronephrosis, left (3) CKD (chronic kidney disease), stage III (4) SHUBHAM (acute kidney injury) (5) Ovarian cyst Goals to Promote Your Health * To prevent worsening of your condition and complications * To maintain your health at the optimal level Directions to Meet Your Goals Take your medications as prescribed Follow your dietary instruction Follow activity as directed Keep your appointments as scheduled Take your immunizations and boosters as scheduled If your symptoms worsen call your PCP, if no PCP go to Urgent Care Center or Emergency Room Smoking is Dangerous to Your Health. Avoid second hand smoke Call the 24-hour hour crisis hotline for domestic abuse at Spencer Dexter MD Jun 19, 2017 14:52
== END 2017-06-19 18:40 | disposition home or self-care (01) | DRG 694 ==
LOC: NEPE 03:44 → INTOOBSV 10:41 → NEDA 10:41 → N04B 11:22 → OBSVTOIN 13:51
PROVIDERS: ADMIT Internal Medicine; ATTEND Internal Medicine
PROC: BT1F1ZZ Fluoroscopy of Left Kidney, Ureter and Bladder using Low Osmolar Contrast (ICD-10-PCS; 2017-06-18)
PROC: 0T778DZ Dilation of Left Ureter with Intraluminal Device, Via Natural or Artificial Opening Endoscopic (ICD-10-PCS; principal; 2017-06-18 13:33)
DX: N13.1 Hydronephrosis with ureteral stricture, not elsewhere classified (principal); N17.9 Acute kidney failure, unspecified; I12.9 Hypertensive chronic kidney disease with stage 1 through stage 4 chronic kidney disease, or unspecified chronic kidney disease; N18.3 Chronic kidney disease, stage 3 (moderate); N83.202 Unspecified ovarian cyst, left side; Z90.721 Acquired absence of ovaries, unilateral; Z90.710 Acquired absence of both cervix and uterus
CPT/HCPCS: 74176; 74420; 76830; 76856; 80048; 81001; 82550; 82552; 84484; 85025; 93005; 93975; 96374; 96375; 96376; C1769; J0690; J0780; J1100; J1170; J1885; J2250; J2270; J2405; J3010; J7030; Q9967

== ENCOUNTER 2017-06-21 16:12 | Emergency (ER) | payer SELFPAY ==
[~2017-06-21] VITALS: Ht 170.2 cm; Wt 100.0 kg
[~2017-06-21 16:12] MED LIST changes: -HYDR-3516 PO; +OXYC1TAB63 PO; -TRAM50 PO; -ZOFR4TAB3 SL
[2017-06-21 16:19] VITALS: BP 166/97; PULSE 71; RESP 22; TEMP 97.7; O2SAT 100
[2017-06-21 18:20] VITALS: BP 159/63; PULSE 64; RESP 19; O2SAT 100
[2017-06-21] MEDS ORDERED: SODIUM CHLOR 0.9% 1000 ML INJ 1,000 ML IV SCH (18:31)
[2017-06-21 18:45] VITALS: O2SAT 100
[2017-06-21] MEDS ORDERED: SODIUM CHLORIDE 0.9% FLUSH 10 ML FLUSH IV FLUSH PRN (18:45)
[2017-06-21] MEDS ORDERED: ONDANSETRON HCL 4 MG/2 ML VIAL IVP ONE (18:45)
[2017-06-21] MEDS ORDERED: MORPHINE SULFATE 4 MG/ML INJ IV PUSH ONE (18:45)
--- NOTE | 2017-06-21 18:54 | PD ---
HPI Chief Complaint: Complaint Time Seen by Provider: 18:09 Travel History International Travel<30 days: No Contact w/Intl Traveler<30days: No Traveled to known affect area: No History of Present Illness HPI Patient is a 42-year-old female who returns to the emergency room for evaluation of left-sided flank pain. Patient reports that she was admitted to the hospital on June 17, 2017 as she suffered from left-sided ureteral obstruction with hydronephrosis. Patient had imaging performed at that time, patient was found to have a cystic lesion to the left adnexa causing obstruction of the distal left ureter. Patient reports that she was seen by Dr. Slater with urology and had a stent placed on June 18, 2017. Patient was also seen by OBGYN as they assumed her urine obstruction was secondary to cystic lesion to her left adnexa. Gynecology agreed with ureteral stent to relieve obstruction, patient was told to follow-up with gynecology as outpatient for further workup of her symptoms. As per her ureteral obstruction , patient had ureteral stent placed on June 18, 2016, was told to follow-up with urology as an outpatient in 2 weeks. Patient reports that since admission to the hospital, she has suffered with hematuria as well as left-sided flank pain, patient reports that pain is not getting any better, reports that hematuria has not resolved nor has it worsened. Reports that she was supposed to be sent home with a prescription for pain medications, she never received the prescription. Patient denies any fever or chills, denies any nausea or vomiting, reports that her flank pain is at baseline. Patient reports that she wanted to be reevaluated to make sure everything was okay. Patient understands that she will need to make an appointment with gynecology as well as urology for follow-up 2 weeks following her discharge from hospital. Patient at this time also denies any dysuria, urinary urgency or frequency. PFSH Past Medical History Arthritis: No Asthma: No Autoimmune Disease: No Blood Disorders: No Anxiety: Yes Depression: No Heart Rhythm Problems: No Cancer: No Cardiac Catheterization: No High Cholesterol: No Chemotherapy: No Chest Pain: No Congestive Heart Failure: No COPD: No Cerebrovascular Accident: No Diabetes: No Diminished Hearing: No Endocrine: No Gastrointestinal Disorders: Yes (pancreatitis) GERD: No Gout: Yes Genitourinary: No Headaches: No Hiatal Hernia: No Heparin Induced Thrombocytopen: No Hypertension: Yes Immune Disorder: No Kidney Stones: No Musculoskeletal: No Neurologic: No Psychiatric: No Reproductive: No Respiratory: No Immunizations Current: Yes Migraines: No Radiation Therapy: No Renal Failure: No Seizures: No Sickle Cell Disease: No Sleep Apnea: No Thyroid Disease: No Ulcer: No Tetanus Vaccination: > 5 Years Influenza Vaccination: No ?: Not Past Surgical History Abdominal Surgery: Yes (colon resection, polyp removal) AICD: No Arteriovenous Shunt: No Cardiac Surgery: No Section: Yes Coronary Artery Bypass Graft: No Ear Surgery: No Endocrine Surgery: No Eye Surgery: No Genitourinary Surgery: Yes (LEFT URETERAL STENT ) Gynecologic Surgery: Yes (, hysterectomy) Hysterectomy: Yes (2011) Insulin Pump: No Joint Replacement: No Neurologic Surgery: No Oral Surgery: No Pacemaker: No Thoracic Surgery: Yes Other Surgery: Yes (rectal polyps removed) Social History Alcohol Use: Yes (OCC) Tobacco Use: No Substance Use: No Allergies-Medications (Allergen,Severity, Reaction): Coded Allergies: ketorolac (Verified Allergy, Severe, Anaphylaxis, 06/21/17) codeine (Unverified Allergy, Unknown, 06/21/17) Reported Meds & Prescriptions Reported Meds & Active Scripts Active Oxycodone-Acetaminophen 5-325 mg Tab 1 Tab PO Q4H PRN Amlodipine (Amlodipine Besylate) 10 Mg Tab 10 Mg PO DAILY Review of Systems General / Constitutional: No: Fever Eyes: No: Visual changes HENT: No: Headaches Cardiovascular: No: Chest Pain or Discomfort Respiratory: No: Shortness of Breath Gastrointestinal: Positive: Abdominal Pain, No: Nausea, Vomiting Genitourinary: Positive: Hematuria, Flank Pain (left sided flank pain), No: Urgency, Frequency, Dysuria Musculoskeletal: No: Pain Skin: No Rash Neurologic: No: Weakness, Dizziness, Syncope Psychiatric: No: Depression Endocrine: No: Polydipsia Hematologic/Lymphatic: No: Easy Bruising Physical Exam Narrative GENERAL: mild distress SKIN: Focused skin assessment warm/dry. HEAD: Atraumatic. Normocephalic. EYES: Pupils equal and round. No scleral icterus. No injection or drainage. ENT: No nasal bleeding or discharge. Mucous membranes pink and moist. NECK: Trachea midline. No JVD. CARDIOVASCULAR: Regular rate and rhythm. No murmur appreciated. RESPIRATORY: No accessory muscle use. Clear to auscultation. Breath sounds equal bilaterally. GASTROINTESTINAL: Abdomen soft, non-tender, nondistended. Hepatic and splenic margins not palpable. MUSCULOSKELETAL: No obvious deformities. No clubbing. No cyanosis. No edema. patient with left sided flank pain NEUROLOGICAL: Awake and alert. No obvious cranial nerve deficits. Motor grossly within normal limits. Normal speech. PSYCHIATRIC: Appropriate mood and affect; insight and judgment normal. Data Data Last Documented VS Vital Signs Date Time Temp Pulse Resp B/P (MAP) Pulse Ox O2 Delivery O2 Flow Rate FiO2 06/21/17 19:12 63 17 151/89 (109) 99 Room Air 06/21/17 16:19 97.7 Orders Orders Complete Blood Count With Diff (06/21/17 18:31) Comprehensive Metabolic Panel (06/21/17 18:31) Lipase (06/21/17 18:31) Prothrombin Time / Inr (Pt) (06/21/17 18:31) Act Partial Throm Time (Ptt) (06/21/17 18:31) Urinalysis - C+S If Indicated (06/21/17 18:31) Iv Access Insert/Monitor (06/21/17 18:31) Ecg Monitoring (06/21/17 18:31) Oximetry (06/21/17 18:31) NPO (06/21/17 18:31) Morphine Inj (Morphine Inj) (06/21/17 18:45) Ondansetron Inj (Zofran Inj) (06/21/17 18:45) Sodium Chlor 0.9% 1000 Ml Inj (Ns 1000 M (06/21/17 18:31) Sodium Chloride 0.9% Flush (Ns Flush) (06/21/17 18:45) Us Kidney/Renal/Bladder (06/21/17 ) Urine Culture (06/21/17 18:35) Ceftriaxone Inj (Rocephin Inj) (06/21/17 22:30) Labs Laboratory Tests Test 06/21/17 18:10 06/21/17 18:35 06/21/17 19:50 Prothrombin Time 10.3 SEC Prothromb Time International Ratio 1.0 RATIO Activated Partial Thromboplast Time 27.2 SEC White Blood Count 5.7 TH/MM3 Red Blood Count 4.36 MIL/MM3 Hemoglobin 12.7 GM/DL Hematocrit 39.5 % Mean Corpuscular Volume 90.7 FL Mean Corpuscular Hemoglobin 29.2 PG Mean Corpuscular Hemoglobin Concent 32.2 % Red Cell Distribution Width 13.8 % Platelet Count 237 TH/MM3 Mean Platelet Volume 10.5 FL Neutrophils (%) (Auto) 49.1 % Lymphocytes (%) (Auto) 41.9 % Monocytes (%) (Auto) 6.9 % Eosinophils (%) (Auto) 1.4 % Basophils (%) (Auto) 0.7 % Neutrophils # (Auto) 2.8 TH/MM3 Lymphocytes # (Auto) 2.4 TH/MM3 Monocytes # (Auto) 0.4 TH/MM3 Eosinophils # (Auto) 0.1 TH/MM3 Basophils # (Auto) 0.0 TH/MM3 CBC Comment DIFF FINAL Differential Comment Urine Color RED Urine Turbidity HAZY Urine pH 6.5 Urine Specific [place] 1.022 Urine Protein 100 mg/dL Urine Glucose (UA) NEG mg/dL Urine Ketones NEG mg/dL Urine Occult Blood LARGE Urine Nitrite NEG Urine Bilirubin NEG Urine Urobilinogen LESS THAN 2.0 MG/DL Urine Leukocyte Esterase MOD Urine RBC /hpf Urine WBC 12 /hpf Urine Amorphous Sediment RARE Microscopic Urinalysis Comment CULTURE INDICATED Blood Urea Nitrogen 13 MG/DL Creatinine 0.96 MG/DL Random Glucose 83 MG/DL Total Protein 7.1 GM/DL Albumin 3.6 GM/DL Calcium Level 8.5 MG/DL Alkaline Phosphatase 105 U/L Aspartate Amino Transf (AST/SGOT) 14 U/L Alanine Aminotransferase (ALT/SGPT) 21 U/L Total Bilirubin 0.4 MG/DL Sodium Level 144 MEQ/L Potassium Level 3.9 MEQ/L Chloride Level 110 MEQ/L Carbon Dioxide Level 27.5 MEQ/L Anion Gap 7 MEQ/L Estimat Glomerular Filtration Rate 78 ML/MIN Lipase 160 U/L MDM Medical Decision Making Medical Screen Exam Complete: Yes Emergency Medical Condition: Yes Medical Record Reviewed: Yes Interpretation(s) Vital Signs Date Time Temp Pulse Resp B/P (MAP) Pulse Ox O2 Delivery O2 Flow Rate FiO2 06/21/17 18:20 64 19 159/63 (95) 100 Room Air 06/21/17 16:19 97.7 71 22 166/97 (120) 100 Differential Diagnosis hydronephrosis, landon, uti, pyelonephrosis, ovarian cyst Narrative Course 42-year-old female presents to emergency room for evaluation of acute on chronic left-sided flank pain. Patient was found to have cystic lesion to the left adnexa causing obstruction to the distal left ureter on June 17, 2017. She had a stent placed by Dr. Slater with urology on June 18, 2017, patient concerned for persistent hematuria as well as flank pain.\ Patient's vital signs are stable upon initial evaluation to the emergency room. Overall, patient's physical exam is benign except for her left-sided flank pain. Discussed with patient plan to check labs to evaluate for renal function as well as to check renal ultrasound to evaluate for hydronephrosis and obstruction. Will administer IV fluids as well as pain medication at this time Vital Signs Date Time Temp Pulse Resp B/P (MAP) Pulse Ox O2 Delivery O2 Flow Rate FiO2 06/21/17 19:12 63 17 151/89 (109) 99 Room Air 06/21/17 18:45 100 Room Air 06/21/17 18:20 64 19 159/63 (95) 100 Room Air 06/21/17 16:19 97.7 71 22 166/97 (120) 100 During the course of the patients emergency department visit, the patients history, examination, and differential diagnosis were reviewed with the patient. The patient was placed on a monitoring engineer with oximetry and frequent blood pressure monitoring. The patient had an IV access obtained and blood work sent for analysis. The patient was initially provided IVF as well as morphine and zofran. The patients laboratory studies were reviewed and remarkable for CBC & BMP Diagram 06/21/17 18:35 06/21/17 19:50 Total Protein 7.1, Albumin 3.6, Calcium Level 8.5, Alkaline Phosphatase 105, Aspartate Amino Transf (AST/SGOT) 14 L, Alanine Aminotransferase (ALT/SGPT) 21, Total Bilirubin 0.4 UA positive for moderate leuk esterase, 12 white blood cells, 100 protein, patient was given a dose of IV Rocephin, patient will be discharged home with prescription for Macrobid. Radiology studies were reviewed and remarkable for: Last Impressions Renal Ultrasound 06/21/17 0000 Signed Impressions: Service Date/Time: Wednesday, June 21, 2017 20:17 - CONCLUSION: 1. Moderate dilatation of the left collecting system with a left ureteral stent in place. 2. 8.6 cm complex cystic and solid left ovarian mass. HAIRSPRING II INSPECTOR consultation is recommended. Significant color flow is not seen within the mass. Alexander Baker MD Patient reevaluated, patient is feeling much better at this time. I discussed results of all labs and all studies with patient in detail including all incidental findings. Patient understands importance of following up with gynecology as well as with urology as outpatient. Discussed with patient that her renal function is improving, renal ultrasound appears to be at baseline. A copy of patient's labs and ultrasound report will be given to her discharge. Patient will follow up and return to the emergency room as needed. Patient happy with plan of care. Diagnosis Primary Impression: Hydronephrosis, left Additional Impressions: Ovarian cyst UTI (urinary tract infection) Qualified Codes: N30.01 - Acute cystitis with hematuria Patient Instructions: General Instructions, Narcotic given in the ED Departure Forms: Tests/Procedures, Work Release Enter return to work date: Jun 24, 2017 Additional Instructions: Please provide patient with a copy of their lab work and studies at discharge* * Please follow up with your primary care doctor in 2-3 days Return to the ER if symptoms worsen or progress Return to the ER as needed Please follow-up with urologist as well as fire suppression captain in 2 weeks as instructed Please follow-up with all cultures today Please do not drive or operate heavy machinery while taking narcotic pain medications Med/Other Pt SpecificInfo: Prescription(s) given Scripts Oxycodone-Acetaminophen (Percocet) 5-325 mg Tab 1 TAB PO Q6H Y for PAIN, #12 TAB 0 Refills Prov: Hannah Darling DO 06/21/17 Nitrofurantoin Monohydrate Macrocrystals (Macrobid) 100 Mg Cap 100 MG PO BID for Infection for 7 Days, #14 CAP 0 Refills Prov: Hannah Darling DO 06/21/17 Disposition: 01 DISCHARGE HOME Condition: Stable Hannah Darling DO Jun 21, 2017 18:54
[2017-06-21 19:10] LABS: AUTOMATED NEUTROPHIL # 2.8 TH/MM3 (1.8-7.7); BASOPHIL % 0.7 % (0.0-2.0); EOSINOPHIL # 0.1 TH/MM3 (0-0.4); EOSINOPHIL % 1.4 % (0.0-4.0); HEMATOCRIT 39.5 % (35.0-46.0); HEMOGLOBIN 12.7 GM/DL (11.6-15.3); LYMPH % 41.9 % (9.0-44.0); LYMPHOCYTE # 2.4 TH/MM3 (1.0-4.8); MEAN CELL VOLUME 90.7 FL (80.0-100.0); MEAN CORPUSCULAR HEMOGLOBIN 29.2 PG (27.0-34.0); MEAN CORPUSCULAR HGB CONC 32.2 % (32.0-36.0); MEAN PLATELET VOLUME 10.5 FL (7.0-11.0); MONO % 6.9 % (0.0-8.0); MONOCYTE # 0.4 TH/MM3 (0-0.9); NEUT % 49.1 % (16.0-70.0); PLATELET COUNT 237 TH/MM3 (150-450); RED BLOOD COUNT 4.36 MIL/MM3 (4.00-5.30); RED CELL DISTRIBUTION WIDTH 13.8 % (11.6-17.2); WHITE BLOOD COUNT 5.7 TH/MM3 (4.0-11.0)
[2017-06-21 19:12] VITALS: BP 151/89; PULSE 63; RESP 17; O2SAT 99
[2017-06-21 19:14] LABS: AMORPHOUS SEDIMENT, URINE RARE; BILIRUBIN, URINE NEG (NEG); BLOOD, URINE LARGE (NEG); GLUCOSE,URINE NEG (NEG); KETONE, URINE NEG (NEG); NITRITE,URINE NEG (NEG); PH, URINE 6.5 (5.0-8.5); URINE LEUKOCYTE ESTERASE MOD (NEG)
[2017-06-21 19:16] LABS: URINE COLOR RED (YELLW/STRAW)
[2017-06-21 19:20] LABS: PROTHROMBIN TIME - PATIENT 10.3 SEC (9.8-11.6)
[2017-06-21 21:04] LABS: ALBUMIN 3.6 GM/DL (3.4-5.0); AST (GOT) 14 U/L (15-37); BICARBONATE 27.5 MEQ/L (21.0-32.0); BLOOD UREA NITROGEN 13 MG/DL (7-18); CALCIUM 8.5 MG/DL (8.5-10.1); CHLORIDE 110 MEQ/L (98-107); CREATININE 0.96 MG/DL (0.50-1.00); GLOMERULAR FILTRATION RATE 78 ML/MIN (>89); GLUCOSE,RANDOM 83 MG/DL (74-106); SODIUM (NA) 144 MEQ/L (136-145)
--- NOTE | 2017-06-21 21:04 | RADRPT ---
EXAM DATE/TIME: 06/21/2017 20:17 [facility] COMPARISON: US PELVIS,COMP,W DOPLR, TRANS VAG, June 17, 2017, 8:32. CT ABDOMEN & PELVIS W/O CONTRAST, June 17, 2017, 7:57. INDICATIONS : Flank pain. MEDICAL HISTORY : Hypertension. Pancreatitis. Gout. Anxiety. Blood transfusions. SURGICAL HISTORY : Hysterectomy. section. Colon resection. Polyp removal. ENCOUNTER: Initial ACUITY: 2 days PAIN SCORE: 6/10 LOCATION: Bilateral flank MEASUREMENTS: RIGHT KIDNEY: 11.3 x 5.3 x 4.5 cm LEFT KIDNEY: 10.5 x 6.0 x 6.2 cm FINDINGS: RIGHT KIDNEY: Renal cortex is normal in thickness and echotexture. No hydronephrosis, stone, or mass. LEFT KIDNEY: There is moderate dilatation of the collecting system. There is a left ureteral stent present. BLADDER: Within normal limits given the degree of distension. OTHER: There continues to be a complex 8.6 x 6.2 x 6.4 cm left ovarian mass. Significant color flow is not s een within the left adnexal mass. CONCLUSION: 1. Moderate dilatation of the left collecting system with a left ureteral stent in place. 2. 8.6 cm complex cystic and solid left ovarian mass. INSURANCE COMPLIANCE ANALYST consultation is recommended. Significant co josh flow is not seen within the mass. Alexander Baker MD on June 21, 2017 at 20:58 Board Certified Radiologist. This report was verified electronically.
[2017-06-21 21:06] LABS: ALT (GPT) 21 U/L (10-53)
[2017-06-21 21:07] LABS: ALKALINE PHOSPHATASE 105 U/L (45-117); TOTAL BILIRUBIN ADULT 0.4 MG/DL (0.2-1.0); TOTAL PROTEIN 7.1 GM/DL (6.4-8.2)
[2017-06-21] MEDS ORDERED: cefTRIAXone INJ 1,000 MG in SODIUM CHLORIDE 0.9% INJ 100 ML IV ONE (22:30)
[2017-06-21] MEDS ORDERED: MACR100C2 PO (22:31)
[2017-06-21] MEDS ORDERED: PERC5TAB12 PO (22:31)
== END 2017-06-21 23:07 | disposition home or self-care (01) ==
LOC: NEPD 16:12
DX: N13.1 Hydronephrosis with ureteral stricture, not elsewhere classified (principal); N30.01 Acute cystitis with hematuria; N83.202 Unspecified ovarian cyst, left side; I10 Essential (primary) hypertension
CPT/HCPCS: 76775; 80053; 81001; 83690; 85025; 85610; 85730; 87086; 96361; 96365; 96375; 99284; J0696; J2270; J2405; J7030

== ENCOUNTER 2017-08-04 12:33 | Emergency (ER) | payer SELFPAY ==
[~2017-08-04] VITALS: Ht 170.2 cm; Wt 88.0 kg
[~2017-08-04 12:33] MED LIST changes: +MACR100C2 PO; +PERC5TAB12 PO
[2017-08-04] MEDS ORDERED: IOHEXOL 350 MG/ML 10 ML VIAL (for RAD DIAG) IVCONTRAST ONE (12:34)
[2017-08-04 12:36] VITALS: BP 145/94; PULSE 92; RESP 18; TEMP 98.5; O2SAT 100
[2017-08-04] MEDS ORDERED: SODIUM CHLOR 0.9% 1000 ML INJ 1,000 ML IV SCH (12:48)
--- NOTE | 2017-08-04 12:50 | PD ---
HPI Chief Complaint: Complaint Time Seen by Provider: 12:41 Travel History International Travel<30 days: No Contact w/Intl Traveler<30days: No Traveled to known affect area: No History of Present Illness HPI 42-year-old female with history of cystic mass causing ureteral obstruction status post stent placement approximately 1 month ago, presents emergency department for evaluation of 2 day history of hematuria and feeling like her "bowels are in a knot." States she had her last bowel movement yesterday but it was smaller than usual. Denies any pain with urination. Patient has not followed up following stent placement 1 month ago. Patient denies any chest or tightness. No difficulty breathing. She has had no fever or chills. She has no other symptoms to report. PFSH Past Medical History Arthritis: No Asthma: No Autoimmune Disease: No Blood Disorders: No Anxiety: Yes Depression: No Heart Rhythm Problems: No Cancer: No Cardiac Catheterization: No High Cholesterol: No Chemotherapy: No Chest Pain: No Congestive Heart Failure: No COPD: No Cerebrovascular Accident: No Diabetes: No Diminished Hearing: No Endocrine: No Gastrointestinal Disorders: Yes (pancreatitis) GERD: No Gout: Yes Genitourinary: No Headaches: No Hiatal Hernia: No Heparin Induced Thrombocytopen: No Hypertension: Yes Immune Disorder: No Kidney Stones: No Musculoskeletal: No Neurologic: No Psychiatric: No Reproductive: No Respiratory: No Immunizations Current: Yes Migraines: No Radiation Therapy: No Renal Failure: No Seizures: No Sickle Cell Disease: No Sleep Apnea: No Thyroid Disease: No Ulcer: No Past Surgical History Abdominal Surgery: Yes (colon resection, polyp removal) AICD: No Arteriovenous Shunt: No Cardiac Surgery: No Section: Yes Coronary Artery Bypass Graft: No Ear Surgery: No Endocrine Surgery: No Eye Surgery: No Genitourinary Surgery: Yes (LEFT URETERAL STENT ) Gynecologic Surgery: Yes (, hysterectomy) Hysterectomy: Yes (2011) Insulin Pump: No Joint Replacement: No Neurologic Surgery: No Oral Surgery: No Pacemaker: No Thoracic Surgery: Yes Other Surgery: Yes (rectal polyps removed) Social History Alcohol Use: Yes (OCC) Tobacco Use: No Substance Use: No Allergies-Medications (Allergen,Severity, Reaction): Coded Allergies: ketorolac (Verified Allergy, Severe, Anaphylaxis, 06/21/17) ondansetron (Verified Allergy, Severe, increased nausea, 08/04/17) codeine (Unverified Allergy, Unknown, 06/21/17) Reported Meds & Prescriptions Reported Meds & Active Scripts Active Percocet (Oxycodone-Acetaminophen) 5-325 mg Tab 1 Tab PO Q6H PRN Macrobid (Nitrofurantoin Monoh/Nitrofur Macro) 100 Mg Cap 100 Mg PO BID 7 Days Oxycodone-Acetaminophen 5-325 mg Tab 1 Tab PO Q4H PRN Amlodipine (Amlodipine Besylate) 10 Mg Tab 10 Mg PO DAILY Review of Systems Except as stated in HPI: all other systems reviewed are Neg Physical Exam Narrative GENERAL: Well-nourished female patient, ambulatory and in no acute distress. SKIN: Focused skin assessment warm/dry. HEAD: Atraumatic. Normocephalic. EYES: Pupils equal and round. No scleral icterus. No injection or drainage. ENT: No nasal bleeding or discharge. Mucous membranes pink and moist. NECK: Trachea midline. No JVD. CARDIOVASCULAR: Slightly elevated rate and rhythm. No murmur appreciated. RESPIRATORY: No accessory muscle use. Clear to auscultation. Breath sounds equal bilaterally. GASTROINTESTINAL: Abdomen is soft, nondistended, nontender. No guarding. No rebound tenderness. Hepatic and splenic margins not palpable. MUSCULOSKELETAL: No obvious deformities. No clubbing. No cyanosis. No edema. NEUROLOGICAL: Awake and alert. No obvious cranial nerve deficits. Motor grossly within normal limits. Normal speech. PSYCHIATRIC: Appropriate mood and affect; insight and judgment normal. Data Data Last Documented VS Vital Signs Date Time Temp Pulse Resp B/P (MAP) Pulse Ox O2 Delivery O2 Flow Rate FiO2 08/04/17 12:36 98.5 92 18 145/94 (111) 100 Orders Orders Basic Metabolic Panel (Bmp) (08/04/17 12:48) Complete Blood Count With Diff (08/04/17 12:48) Urinalysis - C+S If Indicated (08/04/17 12:48) Ct Abd/Pel W Iv Contrast(Rout) (08/04/17 12:48) Iv Access Insert/Monitor (08/04/17 12:48) Ecg Monitoring (08/04/17 12:48) Oximetry (08/04/17 12:48) Morphine Inj (Morphine Inj) (08/04/17 13:00) Sodium Chlor 0.9% 1000 Ml Inj (Ns 1000 M (08/04/17 12:48) Sodium Chloride 0.9% Flush (Ns Flush) (08/04/17 13:00) Ondansetron Odt (Zofran Odt) (08/04/17 13:00) Urine Culture (08/04/17 13:13) Iohexol 350 Inj (Omnipaque 350 Inj) (08/04/17 12:34) Ed Discharge Order (08/04/17 15:00) Labs Laboratory Tests Test 08/04/17 13:13 White Blood Count 3.6 TH/MM3 Red Blood Count 3.80 MIL/MM3 Hemoglobin 11.5 GM/DL Hematocrit 33.7 % Mean Corpuscular Volume 88.8 FL Mean Corpuscular Hemoglobin 30.3 PG Mean Corpuscular Hemoglobin Concent 34.1 % Red Cell Distribution Width 14.7 % Platelet Count 200 TH/MM3 Mean Platelet Volume 10.5 FL Neutrophils (%) (Auto) 40.3 % Lymphocytes (%) (Auto) 46.8 % Monocytes (%) (Auto) 8.1 % Eosinophils (%) (Auto) 3.7 % Basophils (%) (Auto) 1.1 % Neutrophils # (Auto) 1.4 TH/MM3 Lymphocytes # (Auto) 1.7 TH/MM3 Monocytes # (Auto) 0.3 TH/MM3 Eosinophils # (Auto) 0.1 TH/MM3 Basophils # (Auto) 0.0 TH/MM3 CBC Comment DIFF FINAL Differential Comment Urine Color YELLOW Urine Turbidity HAZY Urine pH 5.5 Urine Specific [place] 1.007 Urine Protein TRACE mg/dL Urine Glucose (UA) NEG mg/dL Urine Ketones NEG mg/dL Urine Occult Blood SMALL Urine Nitrite NEG Urine Bilirubin NEG Urine Urobilinogen LESS THAN 2.0 MG/DL Urine Leukocyte Esterase MOD Urine RBC 5 /hpf Urine WBC 10 /hpf Urine Squamous Epithelial Cells 28 /hpf Urine Bacteria OCC /hpf Urine Hyaline Casts 2 /lpf Urine Mucus FEW /lpf Microscopic Urinalysis Comment CULTURE INDICATED Blood Urea Nitrogen 11 MG/DL Creatinine 1.32 MG/DL Random Glucose 80 MG/DL Calcium Level 9.0 MG/DL Sodium Level 142 MEQ/L Potassium Level 3.6 MEQ/L Chloride Level 110 MEQ/L Carbon Dioxide Level 24.9 MEQ/L Anion Gap 7 MEQ/L Estimat Glomerular Filtration Rate 54 ML/MIN [facility] Medical Decision Making Medical Screen Exam Complete: Yes Emergency Medical Condition: Yes Medical Record Reviewed: Yes Differential Diagnosis Obstruction versus UTI versus renal calculi Narrative Course 42-year-old female presents emergency department for evaluation of hematuria 2 days. Patient appears without distress. Abdominal exam is fairly benign. Vital signs are stable. Patient has not sought follow-up since stent was placed. Laboratory Tests Test 08/04/17 13:13 White Blood Count 3.6 TH/MM3 Red Blood Count 3.80 MIL/MM3 Hemoglobin 11.5 GM/DL Hematocrit 33.7 % Mean Corpuscular Volume 88.8 FL Mean Corpuscular Hemoglobin 30.3 PG Mean Corpuscular Hemoglobin Concent 34.1 % Red Cell Distribution Width 14.7 % Platelet Count 200 TH/MM3 Mean Platelet Volume 10.5 FL Neutrophils (%) (Auto) 40.3 % Lymphocytes (%) (Auto) 46.8 % Monocytes (%) (Auto) 8.1 % Eosinophils (%) (Auto) 3.7 % Basophils (%) (Auto) 1.1 % Neutrophils # (Auto) 1.4 TH/MM3 Lymphocytes # (Auto) 1.7 TH/MM3 Monocytes # (Auto) 0.3 TH/MM3 Eosinophils # (Auto) 0.1 TH/MM3 Basophils # (Auto) 0.0 TH/MM3 CBC Comment DIFF FINAL Differential Comment Urine Color YELLOW Urine Turbidity HAZY Urine pH 5.5 Urine Specific [place] 1.007 Urine Protein TRACE mg/dL Urine Glucose (UA) NEG mg/dL Urine Ketones NEG mg/dL Urine Occult Blood SMALL Urine Nitrite NEG Urine Bilirubin NEG Urine Urobilinogen LESS THAN 2.0 MG/DL Urine Leukocyte Esterase MOD Urine RBC 5 /hpf Urine WBC 10 /hpf Urine Squamous Epithelial Cells 28 /hpf Urine Bacteria OCC /hpf Urine Hyaline Casts 2 /lpf Urine Mucus FEW /lpf Microscopic Urinalysis Comment CULTURE INDICATED Blood Urea Nitrogen 11 MG/DL Creatinine 1.32 MG/DL Random Glucose 80 MG/DL Calcium Level 9.0 MG/DL Sodium Level 142 MEQ/L Potassium Level 3.6 MEQ/L Chloride Level 110 MEQ/L Carbon Dioxide Level 24.9 MEQ/L Anion Gap 7 MEQ/L Estimat Glomerular Filtration Rate 54 ML/MIN Last Impressions Abdomen/Pelvis CT 08/04/17 [id number] Signed Impressions: Service Date/Time: Friday, August 04, 2017 14:19 - CONCLUSION: Double-J stent in place on the left with increasing dilatation of the left collecting system. Stable cystic mass left adnexal region Dose for previous abdominal surgery with bowel resection. No abscess or free air. Bridger Pink MD FACR CT imaging and lab work is reviewed with my attending physician. Findings are discussed with the patient. she is encouraged to follow-up as originally planned in regards to her stent and cystic mass. She agrees to return immediately with acute worsening symptoms. Diagnosis Primary Impression: Hematuria Qualified Codes: R31.9 - Hematuria, unspecified Additional Impression: Abdominal pain Qualified Codes: R10.30 - Lower abdominal pain, unspecified Referrals: Primary Care Physician Urologist Patient Instructions: General Instructions, Hematuria (ED) Additional Instructions: It is important that you follow-up with urology and gynecology Return immediately with acute worsening symptoms Med/Other Pt SpecificInfo: Prescription(s) given Scripts Oxycodone-Acetaminophen (Percocet) 5-325 mg Tab 1 TAB PO Q6H Y for PAIN GREATER THAN 6, #6 TAB 0 Refills Prov: Rody Campbell 08/04/17 Cephalexin (Keflex) 500 Mg Cap 500 MG PO Q12H for Infection for 7 Days, #14 CAP 0 Refills Prov: Rody Campbell 08/04/17 Disposition: 01 DISCHARGE HOME Condition: Stable Rody Campbell August 04, 2017 12:50
[2017-08-04] MEDS ORDERED: MORPHINE SULFATE 4 MG/ML INJ IV PUSH ONE (13:00)
[2017-08-04] MEDS ORDERED: SODIUM CHLORIDE 0.9% FLUSH 10 ML FLUSH IV FLUSH PRN (13:00)
[2017-08-04] MEDS ORDERED: ONDANSETRON ODT 4 MG TAB PO ONE (13:00)
[2017-08-04 13:26] LABS: AUTOMATED NEUTROPHIL # 1.4 TH/MM3 (1.8-7.7); BASOPHIL % 1.1 % (0.0-2.0); EOSINOPHIL # 0.1 TH/MM3 (0-0.4); EOSINOPHIL % 3.7 % (0.0-4.0); HEMATOCRIT 33.7 % (35.0-46.0); HEMOGLOBIN 11.5 GM/DL (11.6-15.3); LYMPH % 46.8 % (9.0-44.0); LYMPHOCYTE # 1.7 TH/MM3 (1.0-4.8); MEAN CELL VOLUME 88.8 FL (80.0-100.0); MEAN CORPUSCULAR HEMOGLOBIN 30.3 PG (27.0-34.0); MEAN CORPUSCULAR HGB CONC 34.1 % (32.0-36.0); MEAN PLATELET VOLUME 10.5 FL (7.0-11.0); MONO % 8.1 % (0.0-8.0); MONOCYTE # 0.3 TH/MM3 (0-0.9); NEUT % 40.3 % (16.0-70.0); PLATELET COUNT 200 TH/MM3 (150-450); RED CELL DISTRIBUTION WIDTH 14.7 % (11.6-17.2); WHITE BLOOD COUNT 3.6 TH/MM3 (4.0-11.0)
[2017-08-04 13:34] LABS: BACTERIA, URINE OCC /hpf; BILIRUBIN, URINE NEG (NEG); BLOOD, URINE SMALL (NEG); GLUCOSE,URINE NEG (NEG); HYALINE CAST, URINE 2 /lpf (RARE); KETONE, URINE NEG (NEG); MUCUS URINE FEW /lpf (OCC); NITRITE,URINE NEG (NEG); PH, URINE 5.5 (5.0-8.5); SQUAMOUS EPITHELIAL CELL URINE 28 /hpf (0-5); URINE COLOR YELLOW (YELLW/STRAW); URINE LEUKOCYTE ESTERASE MOD (NEG)
[2017-08-04 13:59] LABS: BICARBONATE 24.9 MEQ/L (21.0-32.0); CREATININE 1.32 MG/DL (0.50-1.00)
--- NOTE | 2017-08-04 14:43 | RADRPT ---
EXAM DATE/TIME: 08/04/2017 14:19 [place] COMPARISON: CT ABDOMEN & PELVIS W/O CONTRAST, June 17, 2017, 7:57. CT ABDOMEN & PELVIS W CONTRAST, June 04 18, 22:45. INDICATIONS : Abdominal pain. IV CONTRAST: 90 cc Omnipaque 350 (iohexol) IV ORAL CONTRAST: No oral contrast ingested. RADIATION DOSE: 14.40 CTDIvol (mGy) MEDICAL HISTORY : Hypertension. Pancreatitis. SURGICAL HISTORY : Hysterectomy. Colon resection. section.Ureteral stent. ENCOUNTER: Initial ACUITY: 1 day PAIN SCALE: 4/10 LOCATION: Abdomen TECHNIQUE: Volumetric scanning of the abdomen and pelvis was performed. Using automated exposure control and ad justment of the mA and/or kV according to patient size, radiation dose was kept as low as reasonably achievable to obtain optimal diagnostic quality images. DICOM format image data is available electro nically for review and comparison. FINDINGS: Very minimal parenchymal opacity right base, nonspecific The liver, spleen and pancreas are unremarkable The abdomen appear normal Right kidney is unremarkable Double-J stent on the left with dilatation of the left collecting system Stent appears in good position Surgical clips right lower quadrant Nonspecific bowel gas pattern without inflammatory changes 5 cm cystic mass left adnexal region adjacent to the stent. No free fluid. Degenerative changes in the lower lumbar spine CONCLUSION: Double-J stent in place on the left with increasing dilatation of the left collecting system. Stable cystic mass left adnexal region Dose for previous abdominal surgery with bowel resection. No abscess or free air. Bridger Pink MD FACR on August 04, 2017 at 14:37 Board Certified Radiologist. This report was verified electronically.
--- NOTE | 2017-08-04 15:04 | PD ---
Data Data Last Documented VS Vital Signs Date Time Temp Pulse Resp B/P (MAP) Pulse Ox O2 Delivery O2 Flow Rate FiO2 08/04/17 12:36 98.5 92 18 145/94 (111) 100 Orders Orders Basic Metabolic Panel (Bmp) (08/04/17 12:48) Complete Blood Count With Diff (08/04/17 12:48) Urinalysis - C+S If Indicated (08/04/17 12:48) Ct Abd/Pel W Iv Contrast(Rout) (08/04/17 12:48) Iv Access Insert/Monitor (08/04/17 12:48) Ecg Monitoring (08/04/17 12:48) Oximetry (08/04/17 12:48) Morphine Inj (Morphine Inj) (08/04/17 13:00) Sodium Chlor 0.9% 1000 Ml Inj (Ns 1000 M (08/04/17 12:48) Sodium Chloride 0.9% Flush (Ns Flush) (08/04/17 13:00) Ondansetron Odt (Zofran Odt) (08/04/17 13:00) Urine Culture (08/04/17 13:13) Iohexol 350 Inj (Omnipaque 350 Inj) (08/04/17 12:34) Ed Discharge Order (08/04/17 15:00) Labs Laboratory Tests Test 08/04/17 13:13 White Blood Count 3.6 TH/MM3 Red Blood Count 3.80 MIL/MM3 Hemoglobin 11.5 GM/DL Hematocrit 33.7 % Mean Corpuscular Volume 88.8 FL Mean Corpuscular Hemoglobin 30.3 PG Mean Corpuscular Hemoglobin Concent 34.1 % Red Cell Distribution Width 14.7 % Platelet Count 200 TH/MM3 Mean Platelet Volume 10.5 FL Neutrophils (%) (Auto) 40.3 % Lymphocytes (%) (Auto) 46.8 % Monocytes (%) (Auto) 8.1 % Eosinophils (%) (Auto) 3.7 % Basophils (%) (Auto) 1.1 % Neutrophils # (Auto) 1.4 TH/MM3 Lymphocytes # (Auto) 1.7 TH/MM3 Monocytes # (Auto) 0.3 TH/MM3 Eosinophils # (Auto) 0.1 TH/MM3 Basophils # (Auto) 0.0 TH/MM3 CBC Comment DIFF FINAL Differential Comment Urine Color YELLOW Urine Turbidity HAZY Urine pH 5.5 Urine Specific [place] 1.007 Urine Protein TRACE mg/dL Urine Glucose (UA) NEG mg/dL Urine Ketones NEG mg/dL Urine Occult Blood SMALL Urine Nitrite NEG Urine Bilirubin NEG Urine Urobilinogen LESS THAN 2.0 MG/DL Urine Leukocyte Esterase MOD Urine RBC 5 /hpf Urine WBC 10 /hpf Urine Squamous Epithelial Cells 28 /hpf Urine Bacteria OCC /hpf Urine Hyaline Casts 2 /lpf Urine Mucus FEW /lpf Microscopic Urinalysis Comment CULTURE INDICATED Blood Urea Nitrogen 11 MG/DL Creatinine 1.32 MG/DL Random Glucose 80 MG/DL Calcium Level 9.0 MG/DL Sodium Level 142 MEQ/L Potassium Level 3.6 MEQ/L Chloride Level 110 MEQ/L Carbon Dioxide Level 24.9 MEQ/L Anion Gap 7 MEQ/L Estimat Glomerular Filtration Rate 54 ML/MIN MDM Supervised Visit with RIVKA: Yes Narrative Course I, Dr. Muñoz, have reviewed the advance practice practitioner's documentation and am in agreement, met with the patient face to face, made the diagnosis, and the medical decision making was done by me. *My assessment and Findings: Patient was here 2 months ago with cystic mass and required ureteral stent. She has not followed up. Repeat workup was done today and compared to prior. Mass is unchanged. Labs reviewed. Stable for outpatient follow-up. I encouraged her to be diligent about follow-up. Jose Muñoz MD August 04, 2017 15:04
[2017-08-04] MEDS ORDERED: CEPH-460 PO (15:08)
[2017-08-04] MEDS ORDERED: PERC5TAB12 PO (15:08)
[2017-08-04 15:14] VITALS: BP 141/53
== END 2017-08-04 15:46 | disposition home or self-care (01) ==
LOC: NEPC 12:33
DX: R31.9 Hematuria, unspecified (principal); R10.30 Lower abdominal pain, unspecified; R19.09 Other intra-abdominal and pelvic swelling, mass and lump; R82.99 Other abnormal findings in urine; I10 Essential (primary) hypertension; F41.9 Anxiety disorder, unspecified; Z96.0 Presence of urogenital implants; Z88.5 Allergy status to narcotic agent; Z88.8 Allergy status to other drugs, medicaments and biological substances; Z79.899 Other long term (current) drug therapy
CPT/HCPCS: 74177; 80048; 81001; 85025; 87086; 96374; 99284; J2270; J7030; Q9967

== ENCOUNTER 2017-08-24 07:51 | Emergency (ER) | payer SELFPAY ==
[~2017-08-24] VITALS: Ht 170.2 cm; Wt 98.2 kg
[~2017-08-24 07:51] MED LIST changes: +CEPH-460 PO
[2017-08-24 07:55] VITALS: BP 195/97; PULSE 79; RESP 18; TEMP 98.2; O2SAT 100
[2017-08-24 08:19] LABS: BILIRUBIN, URINE NEG (NEG); BLOOD, URINE MOD (NEG); GLUCOSE,URINE NEG (NEG); KETONE, URINE NEG (NEG); NITRITE,URINE NEG (NEG); URINE COLOR YELLOW (YELLW/STRAW); URINE LEUKOCYTE ESTERASE TRACE (NEG)
[2017-08-24 08:31] VITALS: BP 156/96; PULSE 76; RESP 18; O2SAT 99
--- NOTE | 2017-08-24 08:35 | PD ---
HPI Chief Complaint: Abdominal Pain Time Seen by Provider: 08:26 Travel History International Travel<30 days: No Contact w/Intl Traveler<30days: No Traveled to known affect area: No History of Present Illness HPI 42-year-old female presents with one-week history of left lower quadrant abdominal pain and clear vaginal discharge. She denies any other concurrent complaints. She states that 2-3 months ago she had a ureteral stent placed and that is still in place. She denies migration of the pain at this time. Quality is sharp. Severity is moderate. She states she has history of endometriosis with prior colon resection and has frequent abdominal pain. PFSH Past Medical History Arthritis: No Asthma: No Autoimmune Disease: No Blood Disorders: No Anxiety: Yes Depression: No Heart Rhythm Problems: No Cancer: No Cardiac Catheterization: No Cardiovascular Problems: Yes High Cholesterol: No Chemotherapy: No Chest Pain: No Congestive Heart Failure: No COPD: No Cerebrovascular Accident: No Diabetes: No Diminished Hearing: No Endocrine: No Gastrointestinal Disorders: Yes (pancreatitis) GERD: No Gout: Yes Genitourinary: No Headaches: No Hiatal Hernia: No Heparin Induced Thrombocytopen: No Hypertension: Yes Immune Disorder: No Kidney Stones: No Musculoskeletal: No Neurologic: No Psychiatric: No Reproductive: No Respiratory: No Immunizations Current: Yes Migraines: No Radiation Therapy: No Renal Failure: No Seizures: No Sickle Cell Disease: No Sleep Apnea: No Thyroid Disease: No Ulcer: No ?: Not Past Surgical History Abdominal Surgery: Yes (colon resection, polyp removal) AICD: No Arteriovenous Shunt: No Cardiac Surgery: No Section: Yes Coronary Artery Bypass Graft: No Ear Surgery: No Endocrine Surgery: No Eye Surgery: No Genitourinary Surgery: Yes (LEFT URETERAL STENT ) Gynecologic Surgery: Yes (, hysterectomy) Hysterectomy: Yes Insulin Pump: No Joint Replacement: No Neurologic Surgery: No Oral Surgery: No Pacemaker: No Thoracic Surgery: Yes Other Surgery: Yes (rectal polyps removed, hysterectomy, colon ress, c section ) Social History Alcohol Use: Yes (OCC) Tobacco Use: No Substance Use: No Allergies-Medications (Allergen,Severity, Reaction): Coded Allergies: ketorolac (Verified Allergy, Severe, Anaphylaxis, 06/21/17) ondansetron (Verified Allergy, Severe, increased nausea, 08/04/17) codeine (Unverified Allergy, Unknown, 06/21/17) Reported Meds & Prescriptions Reported Meds & Active Scripts Active Keflex (Cephalexin) 500 Mg Cap 500 Mg PO Q12H 7 Days Amlodipine (Amlodipine Besylate) 10 Mg Tab 10 Mg PO DAILY Review of Systems Except as stated in HPI: all other systems reviewed are Neg Physical Exam Narrative GENERAL: 42-year-old female in no apparent distress SKIN: Focused skin assessment warm/dry. HEAD: Atraumatic. Normocephalic. EYES: Pupils equal and round. No scleral icterus. No injection or drainage. ENT: No nasal bleeding or discharge. Mucous membranes pink and moist. NECK: Trachea midline. CARDIOVASCULAR: Regular rate and rhythm. RESPIRATORY: No accessory muscle use. Clear to auscultation. Breath sounds equal bilaterally. GASTROINTESTINAL: Abdomen soft, tender left lower quadrant, nondistended. No rebound or guarding MUSCULOSKELETAL: No obvious deformities. No clubbing. No cyanosis. NEUROLOGICAL: Awake and alert. No obvious cranial nerve deficits. Motor grossly within normal limits. Normal speech. PSYCHIATRIC: Appropriate mood and affect; insight and judgment normal. Data Data Last Documented VS Vital Signs Date Time Temp Pulse Resp B/P (MAP) Pulse Ox O2 Delivery O2 Flow Rate FiO2 08/24/17 08:31 76 18 156/96 (116) 99 08/24/17 07:55 98.2 Orders Orders Urinalysis - C+S If Indicated (08/24/17 07:53) Ed Urine Pregnancytest Poc (08/24/17 07:53) Complete Blood Count With Diff (08/24/17 08:30) Comprehensive Metabolic Panel (08/24/17 08:30) Lipase (08/24/17 08:30) Ct Abd/Pel W/O Iv Contrast (08/24/17 ) Iv Access Insert/Monitor (08/24/17 08:30) Urine Culture (08/24/17 08:10) Ceftriaxone Inj (Rocephin Inj) (08/24/17 10:45) Ed Discharge Order (08/24/17 10:43) Labs Laboratory Tests Test 08/24/17 08:10 08/24/17 08:42 Urine Collection Type CLEAN CATCH Urine Color YELLOW Urine Turbidity SLIGHTY CLOUDY Urine pH 6.0 Urine Specific [place] 1.015 Urine Protein NEG mg/dL Urine Glucose (UA) NEG mg/dL Urine Ketones NEG mg/dL Urine Occult Blood MOD Urine Nitrite NEG Urine Bilirubin NEG Urine Urobilinogen 0.2 MG/DL Urine Leukocyte Esterase TRACE Urine RBC 10-14 /hpf Urine WBC 9-14 /hpf Urine WBC Clumps FEW Urine Squamous Epithelial Cells 0-5 /hpf Urine Bacteria MOD /hpf Microscopic Urinalysis Comment CULTURE INDICATED Urine Collection Time 0810 White Blood Count 4.3 TH/MM3 Red Blood Count 3.92 MIL/MM3 Hemoglobin 11.6 GM/DL Hematocrit 35.3 % Mean Corpuscular Volume 90.1 FL Mean Corpuscular Hemoglobin 29.5 PG Mean Corpuscular Hemoglobin Concent 32.7 % Red Cell Distribution Width 13.7 % Platelet Count 164 TH/MM3 Mean Platelet Volume 11.0 FL Neutrophils (%) (Auto) 37.1 % Lymphocytes (%) (Auto) 51.9 % Monocytes (%) (Auto) 5.6 % Eosinophils (%) (Auto) 4.1 % Basophils (%) (Auto) 1.3 % Neutrophils # (Auto) 1.6 TH/MM3 Lymphocytes # (Auto) 2.2 TH/MM3 Monocytes # (Auto) 0.2 TH/MM3 Eosinophils # (Auto) 0.2 TH/MM3 Basophils # (Auto) 0.1 TH/MM3 CBC Comment DIFF FINAL Differential Comment Blood Urea Nitrogen 14 MG/DL Creatinine 1.00 MG/DL Random Glucose 95 MG/DL Total Protein 7.7 GM/DL Albumin 3.9 GM/DL Calcium Level 9.1 MG/DL Alkaline Phosphatase 108 U/L Aspartate Amino Transf (AST/SGOT) 18 U/L Alanine Aminotransferase (ALT/SGPT) 23 U/L Total Bilirubin 0.4 MG/DL Sodium Level 141 MEQ/L Potassium Level 3.7 MEQ/L Chloride Level 109 MEQ/L Carbon Dioxide Level 24.9 MEQ/L Anion Gap 7 MEQ/L Estimat Glomerular Filtration Rate 74 ML/MIN Lipase 120 U/L [facility] Medical Decision Making Medical Screen Exam Complete: Yes Emergency Medical Condition: Yes Medical Record Reviewed: Yes (Past history confirmed) Interpretation(s) CBC & BMP Diagram 08/24/17 08:42 Total Protein 7.7, Albumin 3.9, Calcium Level 9.1, Alkaline Phosphatase 108, Aspartate Amino Transf (AST/SGOT) 18, Alanine Aminotransferase (ALT/SGPT) 23, Total Bilirubin 0.4 Last 24 hours Impressions Abdomen/Pelvis CT 08/24/17 0000 Signed Impressions: CONCLUSION: 1. Overall stable exam with persistent left-sided hydronephrosis despite the p lacement of a pigtail catheter. Persistent enlarged left adnexal mass which dis places the catheter posteriorly. 2. No evidence of inflammatory process within the abdomen or pelvis. No eviden ce of bowel obstruction. Differential Diagnosis UTI, yeast infection, renal failure, stone, pancreatitis, adhesions Narrative Course We will check blood work, urinalysis, CT scan abdominal pelvis and reevaluate ED workup shows UTI with persistent hydronephrosis. Will discuss with Dr. Bird Patient denies any new complaints and states that they are feeling better. Patient happy with care, all questions answered. Patient knows that follow up is incumbent on them and to return to the emergency room immediately if new or worsening symptoms develop. Patient given strict return precautions, vitals reviewed and are normal, agrees to further workup as an outpatient. Physician Communication Physician Communication dr layne states can discharge with outpatient antibiotic and follow in the office, may need nephrostomy placed if symptoms worsen Diagnosis Primary Impression: UTI (urinary tract infection) Additional Impression: Abdominal pain Patient Instructions: General Instructions Additional Instructions: return as needed, follow with dr bird saturday, return as needed Med/Other Pt SpecificInfo: Prescription(s) given Scripts Cephalexin (Keflex) 500 Mg Cap 500 MG PO Q12H for Infection for 7 Days, #14 CAP 0 Refills Prov: Negin Arzola MD 08/24/17 Disposition: 01 DISCHARGE HOME Condition: Stable Negin Arzola MD Aug 24, 2017 08:35
[2017-08-24 09:03] LABS: AUTOMATED NEUTROPHIL # 1.6 TH/MM3 (1.8-7.7); BASOPHIL # 0.1 TH/MM3 (0-0.2); BASOPHIL % 1.3 % (0.0-2.0); EOSINOPHIL # 0.2 TH/MM3 (0-0.4); EOSINOPHIL % 4.1 % (0.0-4.0); HEMATOCRIT 35.3 % (35.0-46.0); HEMOGLOBIN 11.6 GM/DL (11.6-15.3); LYMPH % 51.9 % (9.0-44.0); LYMPHOCYTE # 2.2 TH/MM3 (1.0-4.8); MEAN CELL VOLUME 90.1 FL (80.0-100.0); MEAN CORPUSCULAR HEMOGLOBIN 29.5 PG (27.0-34.0); MEAN CORPUSCULAR HGB CONC 32.7 % (32.0-36.0); MONO % 5.6 % (0.0-8.0); MONOCYTE # 0.2 TH/MM3 (0-0.9); NEUT % 37.1 % (16.0-70.0); PLATELET COUNT 164 TH/MM3 (150-450); RED BLOOD COUNT 3.92 MIL/MM3 (4.00-5.30); RED CELL DISTRIBUTION WIDTH 13.7 % (11.6-17.2); WHITE BLOOD COUNT 4.3 TH/MM3 (4.0-11.0)
[2017-08-24 09:14] LABS: CHLORIDE 109 MEQ/L (98-107); SODIUM (NA) 141 MEQ/L (136-145)
[2017-08-24 09:17] LABS: CALCIUM 9.1 MG/DL (8.5-10.1)
[2017-08-24 09:18] LABS: ALBUMIN 3.9 GM/DL (3.4-5.0); BICARBONATE 24.9 MEQ/L (21.0-32.0); BLOOD UREA NITROGEN 14 MG/DL (7-18); GLUCOSE,RANDOM 95 MG/DL (74-106)
[2017-08-24 09:20] LABS: ALT (GPT) 23 U/L (10-53)
[2017-08-24 09:21] LABS: AST (GOT) 18 U/L (15-37); GLOMERULAR FILTRATION RATE 74 ML/MIN (>89)
[2017-08-24 09:22] LABS: TOTAL BILIRUBIN ADULT 0.4 MG/DL (0.2-1.0); TOTAL PROTEIN 7.7 GM/DL (6.4-8.2)
[2017-08-24 09:23] LABS: ALKALINE PHOSPHATASE 108 U/L (45-117)
[2017-08-24 09:27] LABS: BACTERIA, URINE MOD /hpf; SQUAMOUS EPITHELIAL CELL URINE 0-5 /hpf (0-5); WHITE BLOOD CELL CLUMPS FEW
--- NOTE | 2017-08-24 09:28 | RADRPT ---
EXAM DATE: 08/24/2017 9:05 AM EDT AGE/SEX: 42 years / Female INDICATIONS: Left lower abdomen pain for one week. CLINICAL DATA: This is the patient's initial encounter. Patient reports that signs and symptoms have been present for 1 week and indicates a pain score of 8/10. MEDICAL/SURGICAL HISTORY: Hypertension. Colon resection. Hysterectomy. section. ure ter stent placement RADIATION DOSE: 13.39 CTDI (mGy) COMPARISON: [facility] [place], CT ABDOMEN & PELVIS W/O CONTRAST, 06/17/2017. [facility] [place], CT ABDOMEN & PELVIS W CONTRA ST, 08/04/2017. [facility] [place], US KIDNEY/RENAL/BLADDER, 06/21/2017. . TECHNIQUE: Multiple contiguous axial images were obtained through the abdomen. Images were obtained using multiple row detector helical technique. Using dose reduction techniques, radiation dose was ke pt as low as reasonably achievable to obtain optimal diagnostic quality images. FINDINGS: Lower Lungs: Persistent scarring identified within the right lung base. The left lung bases clear. Liver: The liver has a homogeneous density without space-occupying lesion. There is no dilation of th e biliary tree. Spleen: Homogeneous density without enlargement. Pancreas: Unremarkable without mass or calcification. Kidneys: Persistent left-sided hydronephrosis with pigtail catheter in place. The right kidney is un remarkable. Adrenal Glands: Unremarkable. Aorta: The aorta and proximal iliac vessels are grossly unremarkable without aneurysmal dilation. Bowel/Mesentery: Stable postsurgical changes of bowel surgery within the right lower quadrant. No ev idence of bowel obstruction. Abdominal Wall: Intact. Retroperitoneum: No evidence of adenopathy in the retrocrural, para-aortic, or deep pelvic regions. Bladder: Contours are smooth. Reproductive Organs: The patient is status post prior hysterectomy. There is a stable enlarged fluid attenuating lesion identified within the left hemipelvis in the region of the left ovary. This measu res 5.6 x 5.7 x 4.5 cm. The catheter on the left crosses posterior to this lesion. Inguinal: The inguinal region is unremarkable without evidence of adenopathy. Bony Structures: Unremarkable. CONCLUSION: 1. Overall stable exam with persistent left-sided hydronephrosis despite the placement of a pigtail catheter. Persistent enlarged left adnexal mass which displaces the catheter posteriorly. 2. No evidence of inflammatory process within the abdomen or pelvis. No evidence of bowel obstructio n. Electronically signed by: Angie Price MD 08/24/2017 9:27 AM EDT
[2017-08-24] MEDS ORDERED: CEPH-460 PO ×2 (10:42→10:43)
[2017-08-24] MEDS ORDERED: cefTRIAXone INJ 1,000 MG in SODIUM CHLORIDE 0.9% INJ 100 ML IV ONE (10:45)
[2017-08-24 11:49] VITALS: BP 134/78
== END 2017-08-24 11:50 | disposition home or self-care (01) ==
LOC: PHED 07:51
DX: N39.0 Urinary tract infection, site not specified (principal); F41.9 Anxiety disorder, unspecified; I10 Essential (primary) hypertension
CPT/HCPCS: 74176; 80053; 81001; 83690; 84703; 85025; 87086; 96365; 99284; J0696

== ENCOUNTER 2017-09-12 09:27 | Emergency (ER) | payer SELFPAY ==
[~2017-09-12] VITALS: Ht 170.2 cm; Wt 100.0 kg
[~2017-09-12 09:27] MED LIST changes: -MACR100C2 PO; -OXYC1TAB63 PO; -PERC5TAB12 PO
[2017-09-12 09:30] VITALS: BP 156/89; PULSE 69; RESP 16; TEMP 98.6; O2SAT 99
[2017-09-12] MEDS ORDERED: PERM5CRE11 TOPICAL (09:49)
[2017-09-12] MEDS ORDERED: PRED-503 PO (09:49)
[2017-09-12] MEDS ORDERED: BACT800T5 PO (09:49)
--- NOTE | 2017-09-12 09:49 | PD ---
HPI Chief Complaint: Skin Problem Time Seen by Provider: 09:41 Travel History International Travel<30 days: No Contact w/Intl Traveler<30days: No Traveled to known affect area: No History of Present Illness HPI 42-year-old female presents to the emergency department with complaint of a lump to her right forearm that she thinks may be a bug bite or something that she noticed yesterday. She is also complaining of an itchy rash to her bilateral antecubital and to both sides of her neck that also started yesterday. 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 Denies airway edema. Denies new exposures to lotions, soaps, detergents, perfumes, medications, foods, environmental exposures. Denies chest pain, shortness of breath. Has tried ice to the lump to the forearm with no relief of symptoms. Has not taken any medications or try any other treatments to alleviate her symptoms. Symptoms are mild in severity. No known aggravating or relieving factors. No primary care provider. Allergies to codeine, Zofran, Toradol. History of hypertension. Has no other medical complaints. No other modifying factors or associated signs and symptoms. PFSH Past Medical History Arthritis: No Asthma: No Autoimmune Disease: No Blood Disorders: No Anxiety: Yes Depression: No Heart Rhythm Problems: No Cancer: No Cardiac Catheterization: No Cardiovascular Problems: Yes High Cholesterol: No Chemotherapy: No Chest Pain: No Congestive Heart Failure: No COPD: No Cerebrovascular Accident: No Diabetes: No Diminished Hearing: No Endocrine: No Gastrointestinal Disorders: Yes (pancreatitis) GERD: No Gout: Yes Genitourinary: No Headaches: No Hiatal Hernia: No Heparin Induced Thrombocytopen: No Hypertension: Yes Immune Disorder: No Kidney Stones: No Musculoskeletal: No Neurologic: No Psychiatric: No Reproductive: No Respiratory: No Immunizations Current: Yes Migraines: No Radiation Therapy: No Renal Failure: No Seizures: No Sickle Cell Disease: No Sleep Apnea: No Thyroid Disease: No Ulcer: No ?: Not Past Surgical History Abdominal Surgery: Yes (colon resection, polyp removal) AICD: No Arteriovenous Shunt: No Cardiac Surgery: No Section: Yes Coronary Artery Bypass Graft: No Ear Surgery: No Endocrine Surgery: No Eye Surgery: No Genitourinary Surgery: Yes (LEFT URETERAL STENT ) Gynecologic Surgery: Yes (, hysterectomy) Hysterectomy: Yes Insulin Pump: No Joint Replacement: No Neurologic Surgery: No Oral Surgery: No Pacemaker: No Thoracic Surgery: Yes Other Surgery: Yes (rectal polyps removed, hysterectomy, colon ress, c section ) Social History Alcohol Use: Yes (OCC) Tobacco Use: Yes (OCCAS) Substance Use: No Allergies-Medications (Allergen,Severity, Reaction): Coded Allergies: ketorolac (Verified Allergy, Severe, Anaphylaxis, 09/12/17) ondansetron (Verified Allergy, Severe, increased nausea, 09/12/17) codeine (Unverified Allergy, Unknown, 09/12/17) Reported Meds & Prescriptions Reported Meds & Active Scripts Active Bactrim DS (Sulfamethoxazole-Trimethoprim) 800-160 Mg Tab 1 Tab PO BID 10 Days Deltasone (Prednisone) 20 Mg Tab 40 Mg PO DAILY 5 Days Elimite Topical (Permethrin) 5% Cream 1 Applic TOPICAL ONCE Amlodipine (Amlodipine Besylate) 10 Mg Tab 10 Mg PO DAILY Review of Systems Except as stated in HPI: all other systems reviewed are Neg Physical Exam Narrative GENERAL: Well-nourished, well-developed black female patient, in no acute distress; afebrile, nontoxic-appearing SKIN: Warm and dry. Generalized erythremic pimple-like rash to bilateral antecubitals and bilateral neck. Right mid forearm has a palpable raised area that measures approximately 3 and half centimeters in diameter; there is minimal erythema and warmth to the area; it is tender on palpation; nonfluctuant. No lymphangitis. Right upper extremity is supple and non-tense with 2+ radial pulse and sensory intact. HEAD: Atraumatic. Normocephalic. EYES: Pupils equal and round. No scleral icterus. No injection or drainage. ENT: Mucosa pink and moist. Airway patent. NECK: Trachea midline. CARDIOVASCULAR: Regular rate. RESPIRATORY: No accessory muscle use. GASTROINTESTINAL: Flat. MUSCULOSKELETAL: No obvious deformities. No clubbing. No cyanosis. No edema. NEUROLOGICAL: Awake and alert. Oriented 3. No obvious cranial nerve deficits. Motor grossly within normal limits. Normal speech. PSYCHIATRIC: Appropriate mood and affect; insight and judgment normal. Data Data Last Documented VS Vital Signs Date Time Temp Pulse Resp B/P (MAP) Pulse Ox O2 Delivery O2 Flow Rate FiO2 09/12/17 09:30 98.6 69 16 156/89 (111) 99 Orders Orders Ed Discharge Order (09/12/17 09:50) MDM Medical Decision Making Medical Screen Exam Complete: Yes Emergency Medical Condition: Yes Medical Record Reviewed: Yes Differential Diagnosis Cellulitis, abscess, scabies rash, nonspecific rash Narrative Course 42-year-old female with possible right forearm cellulitis and a nonspecific rash to her right lateral antecubital and bilateral neck, that may be consistent with a scabies rash. She is afebrile and nontoxic-appearing. She denies fever, vomiting. I will treat the patient with antibiotics for possible cellulitis of the right forearm. I gave the patient a prescription for Deltasone and Elimite cream, for possible contact dermatitis or scabies rash. Instructed patient to follow-up with [employer] as needed. Instructed patient to follow up with primary care provider. Patient verbalizes understanding and agreement with treatment plan. Patient is medically cleared and stable for discharge. Discussed reasons to return to the emergency department. Patient agrees with treatment plan. The patients vital signs are stable and the patient is stable for outpatient follow-up and treatment. Patient discharged home, stable and in no acute distress. Diagnosis Primary Impression: Right forearm cellulitis Additional Impression: Rash and nonspecific skin eruption Referrals: [facility] [employer] Primary Care Physician Patient Instructions: Cellulitis (ED), Contact Dermatitis (ED), General Instructions, Scabies (ED) Departure Forms: Tests/Procedures, Work Release Enter return to work date: Sep 13, 2017 Additional Instructions: Take oral steroids as prescribed Caqs-loe-ksxlrox topicals to reduce itch Benadryl as directed and as needed to reduce itch Follow-up with your primary care provider Return to the emergency department immediately with worsening of symptoms Elimite cream as directed; repeat in one week as needed Soaking in cool water or apply cool, wet washcloths to irritated areas to minimize itching Apply anti-itch creams, such as calamine lotion, to relieve pain and itching as needed Gzju-yfi-qaowgzw antihistamines as needed and as directed to relieve allergic symptoms caused by scabies Wash all pillows, linens, blankets, etc. in hot water and dry in hot dryer Bag and all unwashable linens, [place] stuffed animals, etc. in a tightly sealed garbage bag for up to 2 weeks Follow-up with counter [employer] Follow-up with primary care provider Return to the emergency department immediately with worsening of symptoms Med/Other Pt SpecificInfo: Prescription(s) given Scripts Sulfamethoxazole-Trimethoprim (Bactrim DS) 800-160 Mg Tab 1 TAB PO BID for Infection for 10 Days, #20 TAB 0 Refills Prov: Zoila Bajwa 09/12/17 Prednisone (Deltasone) 20 Mg Tab 40 MG PO DAILY for 5 Days, #10 TAB 0 Refills Prov: Zoila Bajwa 09/12/17 Permethrin Topical (Elimite Topical) 5% Cream 1 APPLIC TOPICAL ONCE for Scabies, #1 TUBE 0 Refills Prov: Zoila Bajwa 09/12/17 Disposition: 01 DISCHARGE HOME Condition: Stable Zoila Bajwa Sep 12, 2017 09:49
== END 2017-09-12 10:22 | disposition home or self-care (01) ==
LOC: NEPK 09:27
DX: L03.113 Cellulitis of right upper limb (principal); R21 Rash and other nonspecific skin eruption; F41.9 Anxiety disorder, unspecified; M10.9 Gout, unspecified; I10 Essential (primary) hypertension; Z79.899 Other long term (current) drug therapy; Z88.5 Allergy status to narcotic agent; Z88.8 Allergy status to other drugs, medicaments and biological substances; Z72.0 Tobacco use; Z87.19 Personal history of other diseases of the digestive system
CPT/HCPCS: 99283